=== PATIENT | female | born 1945 | race Caucasian/White ===

== ENCOUNTER → 2016-07-23 | Outpatient (CLI) | payer OTHER | END | disposition home or self-care (01) | LOC: C.LABMFLN 11:43 | PROVIDERS: ATTEND Family Medicine | DX: Z11.59 Encounter for screening for other viral diseases (principal); R32 Unspecified urinary incontinence; A49.1 Streptococcal infection, unspecified site ==

== ENCOUNTER → 2016-07-28 | Outpatient (CLI) | payer OTHER | END | disposition home or self-care (01) | LOC: C.LABMFLN 07:51 | PROVIDERS: ATTEND Family Medicine | DX: A49.1 Streptococcal infection, unspecified site (principal); R32 Unspecified urinary incontinence; Z11.59 Encounter for screening for other viral diseases ==

== ENCOUNTER → 2016-07-29 | Outpatient (CLI) | payer OTHER ==
[2016-07-29 13:09] LABS: BASO % 0.7 %; BASO ABS # 0.05 K/uL (0-0.2); COMPLETE YES; EOS % 3.8 %; HEMATOCRIT 40.8 % (37-47); IG% 0.3 %; LYMPH % 27.2 %; LYMPH ABS # 1.92 K/uL (1.2-3.4); MEAN CELL VOLUME 92.3 fL (80-100); MEAN CORPUSCULAR HEMOGLOBIN 30.3 pg (25-34); MEAN CORPUSCULAR HGB CONC 32.8 g/dl (32-36); MEAN PLATELET VOLUME 10.5 fL (7.4-10.4); MONO % 9.8 %; NEUT % 58.2 %; PLATELET COUNT 296 K/uL (130-400); RED BLOOD COUNT 4.42 M/uL (4.2-5.4); WHITE BLOOD COUNT 7.05 K/uL (4.8-10.8)
[2016-07-29 13:34] LABS: ALT/SGPT 18 U/L (12-78); AST/SGOT 14 U/L (15-37); BLOOD UREA NITROGEN 23 mg/dl (7-18); BUN/CREATININE RATIO 20.5 (10-20); CALCIUM 8.6 mg/dl (8.5-10.1); CARBON DIOXIDE 27 mmol/L (21-32); CHLORIDE 106 mmol/L (98-107); GLUCOSE 131 mg/dl (70-99); POTASSIUM 4.4 mmol/L (3.5-5.1); SODIUM 141 mmol/L (136-145)
[2016-07-29 13:45] LABS: ALB/GLOB RATIO 0.9 (0.9-2); ALKALINE PHOSPHATASE 96 U/L (45-117); CHOLESTEROL 246 mg/dl (0-200); CHOLESTEROL/HDL RATIO 5.6; HDL CHOLESTEROL 44 mg/dl; LDL CHOLESTEROL CALCULATED 159 mg/dl; TRIGLYCERIDES 214 mg/dl (0-150); VERY LOW DENSITY LIPOPROT CALC 43 mg/dl
== END | disposition home or self-care (01) ==
LOC: C.LABMFLN 07:51
PROVIDERS: ATTEND Family Medicine
DX: Z00.00 Encounter for general adult medical examination without abnormal findings (principal); I10 Essential (primary) hypertension; I48.91 Unspecified atrial fibrillation; Z13.220 Encounter for screening for lipoid disorders; Z13.29 Encounter for screening for other suspected endocrine disorder

== ENCOUNTER → 2016-07-31 | Outpatient (CLI) | payer OTHER ==
[2016-07-31 13:51] LABS: ESTIMATED AVERAGE GLUCOSE 134 mg/dl; HA1C FLAG Normal (Normal)
== END | disposition home or self-care (01) ==
LOC: C.LABMFLN 07:26
PROVIDERS: ATTEND Family Medicine
DX: R73.01 Impaired fasting glucose (principal)

== ENCOUNTER → 2016-09-14 | Outpatient (CLI) | payer OTHER ==
[2016-09-14 13:26] LABS: INR 2.5 (0.9-1.1); PROTHROMBIN TIME (PATIENT) 27.3 SECONDS (9.0-12.0)
== END | disposition home or self-care (01) ==
LOC: C.LABMFLN 07:51
PROVIDERS: ATTEND Internal Medicine Cardiovascular Disease
DX: I48.91 Unspecified atrial fibrillation (principal)

== ENCOUNTER → 2017-01-28 | Outpatient (CLI) | payer OTHER ==
[2017-01-28 14:00] LABS: ALT/SGPT 17 U/L (12-78); BLOOD UREA NITROGEN 22 mg/dl (7-18); BUN/CREATININE RATIO 19.8 (10-20); CALCIUM 9.1 mg/dl (8.5-10.1); CARBON DIOXIDE 25 mmol/L (21-32); CHLORIDE 109 mmol/L (98-107); GLUCOSE 115 mg/dl (70-99); POTASSIUM 4.1 mmol/L (3.5-5.1); SODIUM 140 mmol/L (136-145)
[2017-01-28 14:01] LABS: ESTIMATED AVERAGE GLUCOSE 134 mg/dl; HA1C FLAG Normal (Normal)
[2017-01-28 14:01] LABS: RATIO 8.1 mcg/mg (0-30.0)
[2017-01-28 14:03] LABS: ALB/GLOB RATIO 0.8 (0.9-2); ALKALINE PHOSPHATASE 94 U/L (45-117); AST/SGOT 15 U/L (15-37)
== END | disposition home or self-care (01) ==
LOC: C.LABMFLN 07:57
PROVIDERS: ATTEND Physician Assistant
DX: I10 Essential (primary) hypertension (principal); E78.5 Hyperlipidemia, unspecified; E11.9 Type 2 diabetes mellitus without complications

== ENCOUNTER → 2017-02-02 | Outpatient (CLI) | payer OTHER, MEDICARE ==
[2017-02-02 17:54] LABS: BASO % 0.3 %; BASO ABS # 0.03 K/uL (0-0.2); COMPLETE YES; EOS % 2.1 %; HEMATOCRIT 39.5 % (37-47); IG% 0.2 %; LYMPH % 27.8 %; LYMPH ABS # 2.46 K/uL (1.2-3.4); MEAN CELL VOLUME 92.3 fL (80-100); MEAN CORPUSCULAR HEMOGLOBIN 28.3 pg (25-34); MEAN CORPUSCULAR HGB CONC 30.6 g/dl (32-36); MEAN PLATELET VOLUME 10.5 fL (7.4-10.4); MONO % 9.7 %; NEUT % 59.9 %; PLATELET COUNT 337 K/uL (130-400); RED BLOOD COUNT 4.28 M/uL (4.2-5.4); WHITE BLOOD COUNT 8.85 K/uL (4.8-10.8)
== END | disposition home or self-care (01) ==
LOC: C.LABMFLN 13:34
PROVIDERS: ATTEND Family Medicine
DX: R06.00 Dyspnea, unspecified (principal)

== ENCOUNTER → 2017-02-10 | Outpatient (CLI) | payer OTHER, MEDICARE ==
[2017-02-10 13:12] LABS: BLOOD UREA NITROGEN 28 mg/dl (7-18); BUN/CREATININE RATIO 22.9 (10-20); CALCIUM 9.5 mg/dl (8.5-10.1); CARBON DIOXIDE 27 mmol/L (21-32); CHLORIDE 108 mmol/L (98-107); GLUCOSE 101 mg/dl (70-99); POTASSIUM 4.2 mmol/L (3.5-5.1); SODIUM 142 mmol/L (136-145)
== END | disposition home or self-care (01) ==
LOC: C.LABMFLN 09:56
PROVIDERS: ATTEND Family Medicine
DX: I50.30 Unspecified diastolic (congestive) heart failure (principal)

== ENCOUNTER → 2017-06-04 | Outpatient (CLI) | payer OTHER, MEDICARE ==
[~2017-06-04] MED LIST: AMIO200T4 PO; FRS/40 PO; GLC/500 PO; MOMLX PO; NAPR1TAB9 PO; POTA20TA16 PO; SENN15TA PO; TPRSR/50 PO; VNTHFA/IN INH; WARF1TAB6 PO
[2017-06-04 18:46] LABS: BLOOD UREA NITROGEN 26 mg/dl (7-18)
[2017-06-04 18:47] LABS: TRANSFERRIN 365 mg/dl (200-360)
== END | disposition home or self-care (01) ==
LOC: C.LABMFLN 15:19
PROVIDERS: ATTEND Physician Assistant
DX: Z01.812 Encounter for preprocedural laboratory examination (principal); Z79.01 Long term (current) use of anticoagulants; D64.9 Anemia, unspecified; R19.5 Other fecal abnormalities

== ENCOUNTER → 2017-06-05 | Outpatient (CLI) | payer OTHER, MEDICARE ==
[2017-06-10 13:21] LABS: FECAL OCCULT BLOOD #1 NEGATIVE (NEGATIVE); FECAL OCCULT BLOOD #2 NEGATIVE (NEGATIVE); FECAL OCCULT BLOOD #3 NEGATIVE (NEGATIVE)
== END | disposition home or self-care (01) ==
LOC: C.LABSPEC 12:49
PROVIDERS: ATTEND Physician Assistant
DX: Z51.81 Encounter for therapeutic drug level monitoring (principal); Z79.01 Long term (current) use of anticoagulants; D64.9 Anemia, unspecified; R19.5 Other fecal abnormalities

== ENCOUNTER → 2017-07-30 | Outpatient (CLI) | payer OTHER, MEDICARE ==
[2017-07-31 07:08] LABS: HEMOGLOBIN A1C 6.4 % (4.5-5.6)
== END | disposition home or self-care (01) ==
LOC: C.LABMFLN 14:08
PROVIDERS: ATTEND Physician Assistant
DX: E11.9 Type 2 diabetes mellitus without complications (principal); E78.5 Hyperlipidemia, unspecified

== ENCOUNTER → 2017-09-16 | Outpatient (CLI) | payer OTHER, MEDICARE ==
[~2017-09-16] MED LIST changes: +POTA-639 PO; -POTA20TA16 PO
[2017-09-16 12:32] LABS: BASO % 0.1 %; BASO ABS # 0.01 K/uL (0-0.2); EOS % 0.5 %; EOS ABS # 0.06 K/uL (0-0.5); HEMATOCRIT 30.2 % (37-47); HEMOGLOBIN 9.1 g/dL (12.0-16.0); IG# 0.07 K/uL (0.00-0.02); LYMPH % 16.2 %; LYMPH ABS # 2.09 K/uL (1.2-3.4); MEAN CELL VOLUME 81.8 fL (80-100); MEAN CORPUSCULAR HEMOGLOBIN 24.7 pg (25-34); MEAN CORPUSCULAR HGB CONC 30.1 g/dl (32-36); MEAN PLATELET VOLUME 9.4 fL (7.4-10.4); MONO % 8.9 %; MONO ABS # 1.14 K/uL (0.11-0.59); NEUT % 73.8 %; PLATELET COUNT 504 K/uL (130-400); RED CELL DISTRIBUTION WIDTH CV 17.7 % (11.5-14.5); RED CELL DISTRIBUTION WIDTH SD 52.3 fL (36.4-46.3); WHITE BLOOD COUNT 12.87 K/uL (4.8-10.8)
== END | disposition home or self-care (01) ==
LOC: C.LABMFLN 10:20
PROVIDERS: ATTEND Physician Assistant
DX: D64.9 Anemia, unspecified (principal)

== ENCOUNTER → 2017-10-15 | Outpatient (CLI) | payer OTHER, MEDICARE ==
--- NOTE | 2017-10-15 09:48 | DIAGNOSTIC IMAGING REPORT ---
GASTROGRAFIN ENEMA AIR ROUTINE CLINICAL HISTORY: Status post partial colectomy. Evaluate for ostomy reversal. COMPARISON STUDY: Outside hospital abdomen and pelvis CT 08/19/2017. FLUOROSCOPY TIME: 1.4 minutes. 13 fluoroscopic spot and overhead images were obtained.. FINDINGS: Electrical Tests Supervisor images demonstrate suture material within the pelvis consistent with a prior partial colectomy. A balloon tip catheter was gently inserted into the rectum under fluoroscopic guidance. The balloon was inflated. This is followed by placement of Gastrografin contrast through the catheter and into the rectum. Multiple colonic diverticula are noted. Contrast reached the cecum. No suspicious filling defects within the colon. Moderate narrowing involving approximately 7 cm segment of the mid sigmoid colon. No extra luminal contrast to suggest a leak. IMPRESSION: 1. Moderate narrowing involving a 7 cm segment of the mid sigmoid colon. This is at the level of the anastomosis. However, contrast easily extends past the area of narrowing and into the proximal colon. 2. Colonic diverticulosis. 3. No extraluminal contrast to suggest an anastomotic leak. Electronically signed by: Juan Luis Noel M.D. 10/15/2017 10:32 AM Dictated Date/Time: 10/15/2017 9:40 AM
== END | disposition home or self-care (01) ==
LOC: C.RAD 08:07
PROVIDERS: ATTEND Colon & Rectal Surgery
DX: K57.90 Diverticulosis of intestine, part unspecified, without perforation or abscess without bleeding (principal); Z90.49 Acquired absence of other specified parts of digestive tract

== ENCOUNTER 2019-10-08 19:51 | Inpatient (IN) ==
--- NOTE | 2019-10-08 20:13 | Emergency Department Note ---
History of Present Illness General Chief complaint: Neuro Symptoms/Deficit Stated complaint: left leg wont work, possible stoke, his of cva dec Time Seen by Provider: 10/08/19 19:57 Source: patient Mode of arrival: ambulatory Limitations: no limitations History of Present Illness This patient arrives from private vehicle after having strokelike symptoms. She does have a history of stroke in the past for which she recovered and a history of A. fib and is taking Eliquis twice daily. She said this morning her she had an A. fib episode around 9:00 that lasted about 3 hours. She took 3 nitroglycerin and ultimately felt better. She describes as her heart racing. She is no chest pain or shortness of breath. There is no recent fever or COVID- like symptoms cough or shortness of breath. Then around 11:00 it felt like her left leg was weak where she feels like it is giving out when she walks. There are no other left-sided symptoms or no other neurologic symptoms. No difficulty speaking or swallowing. No back pain. She did take her Eliquis this morning. She feels that her symptoms have not gotten any better and are slightly worse and when she walks her leg gives out. Besides that she has no other symptoms at present Home Medications Home Medications Medication Instructions Recorded Confirmed Type albuterol sulfate 90 mcg/actuation 2 puffs INH Q4H PRN #18 gm 11/21/18 10/08/19 Rx aerosol inhaler furosemide 20 mg tablet 20 mg PO DAILY PRN #30 tab 11/22/18 10/08/19 Rx amiodarone 200 mg tablet 200 mg PO DAILY #90 tab 01/23/19 10/08/19 Rx cyanocobalamin (vitamin B-12) 1,000 mcg SL DAILY #90 tab 01/23/19 10/08/19 Rx 1,000 mcg sublingual tablet ferrous sulfate 325 mg (65 mg 325 mg PO TID #270 tab 01/23/19 10/08/19 Rx iron) tablet potassium chloride 10 mEq 10 meq PO DAILY #90 tab 01/23/19 10/08/19 Rx tablet,extended release nitroglycerin 0.4 mg sublingual 0.4 mg SL Q5M PRN #25 tab 02/07/19 10/08/19 Rx tablet meclizine 12.5 mg tablet 12.5 mg PO TID PRN #15 tab 12/10/19 05/10/20 Rx docusate sodium 100 mg capsule 100 mg PO BID PRN cap 05/15/19 10/08/19 History apixaban 5 mg tablet 5 mg PO BID #60 tab 05/30/19 10/08/19 Rx losartan 25 mg tablet 25 mg PO DAILY #90 tab 07/07/19 10/08/19 Rx Allergies Allergy/AdvReac Type Severity Reaction Status Date / Time oxycodone Allergy Unknown Verified 10/08/19 21:07 rosuvastatin [From Crestor] Allergy Unknown Verified 10/08/19 21:07 Cipro AdvReac Unknown pill - N/V Verified 06/01/17 11:51 ciprofloxacin AdvReac Unknown pill - N/V Verified 10/08/19 21:07 metronidazole AdvReac Unknown PILL - N/V Verified 10/08/19 21:07 morphine AdvReac Unknown BIG MENTAL Verified 10/08/19 21:07 STATUS CHANGES Past Med/Surg History Medical History Anemia Asthma, acute Atrial fibrillation Back pain Carotid artery stenosis Carotid stenosis, bilateral Chronic constipation Diabetes Hyperlipidemia Hypertension Paroxysmal atrial fibrillation with RVR PND (paroxysmal nocturnal dyspnea) Situational anxiety VRE (vancomycin-resistant Enterococci) Surgical History H/O colectomy History of meniscectomy of right knee Family History Other Cancer Diabetes Heart disease Stroke Social History Preferred Language: Scottish Communication Ability: Effective Technical Director Required: No Beliefs That Will Affect Care: None Current Living Situation: Spouse Other Information That Helps Us Care for You: No Feels Safe at Home: Yes Safety Concerns: Feels Safe At This Time Smoking Status: Former smoker Smoking End Date: 2 years ago ; Hx Alcohol Use: No Hx Substance Use: No Review of Systems A total of 10 systems reviewed and were otherwise negative Physical Exam Vital Signs Vital Signs - 24 hr 10/08/19 19:53 10/08/19 20:03 10/08/19 20:31 Temperature 36.3 C L Temperature Source Oral Pulse Rate 62 56 L 58 L Pulse Rate from SpO2 Sensor 56 L 59 L Pulse Strength Normal Respiratory Rate 16 18 15 Respiratory Effort / Characteristics Non-Labored Respiratory Depth Normal Respiratory Pattern Regular Blood Pressure 200/82 H 196/99 H 218/150 H Blood Pressure Mean 121 126 173 Blood Pressure Position Sitting Pulse Oximetry 97 99 96 Oxygen Delivery Method Room Air Sepsis Recent Fever Within 48 Hours No Sepsis New/Unexplained Change in Mental Status No Sepsis Action Taken by Nursing No Action Required 10/08/19 21:01 10/08/19 21:31 10/08/19 22:01 Temperature Temperature Source Pulse Rate 59 L 58 L 53 L Pulse Rate from SpO2 Sensor 59 L 58 L 54 L Pulse Strength Respiratory Rate 16 17 14 Respiratory Effort / Characteristics Respiratory Depth Respiratory Pattern Blood Pressure 178/81 H 201/80 H 227/93 H Blood Pressure Mean 125 99 150 Blood Pressure Position Pulse Oximetry 98 98 98 Oxygen Delivery Method Sepsis Recent Fever Within 48 Hours Sepsis New/Unexplained Change in Mental Status Sepsis Action Taken by Nursing General: Well developed well nourished not ill-appearing older female who appears in no acute distress, breathing comfortably on room air. Normal speech. Alert or x3 answering all questions appropriately without slurred speech HEENT: Normal cephalic atraumatic. Pupils are equal round and reactive to light. Extraocular movements are intact. Oropharynx is pink with moist mucous membranes. No swelling of the mouth lips or tongue. Neck: Supple with a midline trachea. No meningeal signs or stiffness, no JVD or bruits. No Stridor. Chest: Clear to auscultation bilaterally. No wheezes or rhonchi. No increased work of breathing. Heart: Regular rate and rhythm without murmurs or gallops. Abdomen: Soft nontender, nondistended without rebound guarding or rigidity. Extremities: No cyanosis clubbing or edema. No calf tenderness or assymetry Spine/Back. Non tender to palpation. No CVA tenderness Skin: Good turgor without rashes. Neurologic exam: Cranial nerves two through 12 are intact. Motor and sensation are intact and symmetrical throughout with the exception of some mild weakness in the left leg compared to the right. She is able to hold it up for 10 seconds but it seems more shaky and weak than the opposite side. Course Administered Medications Ioversol (Optiray 320 125ml) 119 ml IV ONCE PRN PRN Reason: Interaction Checking Stop: 10/12/19 20:16 Last Admin: 10/08/19 20:17 Dose: 119 ml Documented by: [id number] Medical Decision Making Differential Diagnosis Differential diagnosis includes but is not limited to stroke, TIA, A. fib, electrolyte or metabolic abnormality Medical Records Attestation: I reviewed the patient's medical records. Home Medications Current Medication List: was personally reviewed by me Laboratory Data Attestation: I reviewed the patient's lab results. Result diagrams: 10/08/19 20:10 10/08/19 20:10 Lab Results 10/08/19 10/08/19 10/08/19 Range/Units 20:10 20:10 20:10 WBC 6.87 (4.8-10.8) K/uL RBC 4.12 L (4.2-5.4) M/uL Hgb 12.5 (12.0-16.0) g/dL Hct 38.8 (37-47) % MCV 94.2 (80-100) fL MCH 30.3 (25-34) pg MCHC 32.2 (32-36) g/dL RDW Std Deviation 49.7 H (36.4-46.3) fL RDW Coeff of Connie 14.5 (11.5-14.5) % Plt Count 312 (130-400) K/uL MPV 9.8 (7.4-10.4) fL Immature Gran % (Auto) 0.3 % Neut % (Auto) 61.6 % Lymph % (Auto) 24.3 % Storey % (Auto) 11.5 % Eos % (Auto) 1.9 % Baso % (Auto) 0.4 % Immature Gran # (Auto) 0.02 (0.00-0.02) K/uL Neut # (Auto) 4.23 (1.4-6.5) K/uL Lymph # (Auto) 1.67 (1.2-3.4) K/uL Storey # (Auto) 0.79 H (0.11-0.59) K/uL Eos # (Auto) 0.13 (0-0.5) K/uL Baso # (Auto) 0.03 (0-0.2) K/uL PT 10.8 (9.0-12.0) Seconds INR 1.0 (0.9-1.1) APTT 29.8 (21.0-31.0) Seconds PTT Ratio 1.1 Sodium 139 (136-145) mmol/L Potassium 3.9 (3.5-5.1) mmol/L Chloride 106 (98-107) mmol/L Carbon Dioxide 25 (21-32) mmol/L Anion Gap 8.0 (3-11) BUN 23 H (7-18) mg/dl Creatinine 1.31 H (0.6-1.2) mg/dl Est Cr Clr Drug Dosing Not Reportable Est GFR ( Amer) 47.0 Est GFR (Non-Af Amer) 40.6 BUN/Creatinine Ratio 17.3 (10-20) Glucose 139 H (70-99) mg/dl Calcium 8.8 (8.5-10.1) mg/dl Magnesium 2.2 (1.8-2.4) mg/dl Total Bilirubin 0.2 (0.2-1) mg/dl AST 12 L (15-37) U/L ALT 21 (12-78) U/L Alkaline Phosphatase 88 (45-117) U/L Troponin I < 0.015 (0-0.045) ng/ml Total Protein 7.5 (6.4-8.2) gm/dl Albumin 3.4 (3.4-5.0) gm/dl Globulin 4.1 H (2.5-4.0) gm/dl Albumin/Globulin Ratio 0.8 L (0.9-2) Imaging Data Attestation: I personally reviewed and interpreted this imaging study as follows: ECG Data Attestation: I personally reviewed and interpreted this ECG as follows: Blood Pressure Blood Pressure Findings: Elevated blood pressure Blood Pressure Disposition: elevated BP felt to be situational MDM Narrative This patient comes in as described above. She has left leg weakness and strokelike symptoms. They started 9 hours prior to arrival. She has a history of A. fib and felt she had A. fib episode prior to that and took nitroglycerin. Besides the leg she has no other neurologic symptoms. she has no chest pain or shortness of breath. She was placed on a cardiac nurse specialist. IV access was e stablished. And I did call a stroke alert and extensive work-up was done including CT of the head and neck. I did talk to Dr. Garsia from stroke neurology and she agrees that given the timeframe (9 hrs+) and that the fact that she is also on Eliquis, she is not a TPA candidate. Additionally, she is not a interventional candidate at this point given her mild symptoms and timeframe. It is possible with the nitroglycerin she could have dropped her pressure and had a watershed stroke it is also possible that she could have thrown a another embolic stroke. Continuous cardiac monitoring. Due to the patient's history of A. fib and rapid heart rate and strokelike symptoms, an order was placed for continuous cardiac nurse specialist. She is placed on the continuous cardiac nurse specialist and was noted to be in normal sinus rhythm with a rate of 60 as interpreted by myself. She was kept on a cardiac nurse specialist during her stay in the emergency department. Impression & Plan Atrial fibrillation, FPC (current) use of anticoagulants, Stroke-like symptom, Left leg weakness Discharge Plan Visit Data Chief Complaint: Neuro Symptoms/Deficit Stated Complaint: left leg wont work, possible stoke, his of cva apr ED Provider: Samir Keller Discharge Problem: Atrial fibrillation, FPC (current) use of anticoagulants, Stroke-like symptom, Left leg weakness Forms Stand Alone Forms: [facility] [employer] Prescriptions Prescriptions: No Action furosemide 20 mg tablet 20 mg PO DAILY PRN (Reason: edema) Qty: 30 RF: 2 losartan 25 mg tablet 25 mg PO DAILY Qty: 90 RF: 3 amiodarone 200 mg tablet 200 mg PO DAILY Qty: 90 RF: 3 cyanocobalamin (vitamin B-12) 1,000 mcg tablet, sublingual 1,000 mcg SL DAILY Qty: 90 RF: 3 ferrous sulfate 325 mg (65 mg iron) tablet 325 mg PO TID Qty: 270 RF: 3 potassium chloride 10 mEq tablet extended release 10 meq PO DAILY Qty: 90 RF: 3 nitroglycerin 0.4 mg tablet, sublingual 0.4 mg SL Q5M PRN (Reason: chest pain) Qty: 25 RF: 0 docusate sodium [Colace] 100 mg capsule 100 mg PO BID PRN (Reason: Constipation) RF: 0 albuterol sulfate [ProAir HFA] 90 mcg/actuation HFA aerosol inhaler 2 puffs INH Q4H PRN (Reason: shortness of breath or wheezing) Qty: 18 RF: 0 meclizine 12.5 mg tablet 12.5 mg PO TID PRN (Reason: dizziness) Qty: 15 RF: 0 Eliquis 5 mg tablet 5 mg PO BID Qty: 60 RF: 5 Discharge Problem: Atrial fibrillation Qualifiers: Atrial fibrillation type: paroxysmal Qualified Code(s): I48.0 - Paroxysmal atrial fibrillation
[2019-10-08] MEDS ORDERED: OPTIRAY 320 125ml IV PRN (20:17)
[2019-10-08 20:21] LABS: Basophils # (auto) 0.03 K/uL (0-0.2); Basophils % (auto) 0.4 %; Eosinophils # (auto) 0.13 K/uL (0-0.5); Eosinophils % (auto) 1.9 %; Hematocrit (blood only) 38.8 % (37-47); Hemoglobin 12.5 g/dL (12.0-16.0); Immature Granulocytes # (auto) 0.02 K/uL (0.00-0.02); Immature Granulocytes % (auto) 0.3 %; Lymphocytes # (auto) 1.67 K/uL (1.2-3.4); Lymphocytes % (auto) 24.3 %; Mean Corpuscular Hemoglobin 30.3 pg (25-34); Mean Corpuscular Hgb Conc 32.2 g/dL (32-36); Mean Corpuscular Volume 94.2 fL (80-100); Mean Platelet Volume 9.8 fL (7.4-10.4); Monocytes # (auto) 0.79 K/uL (0.11-0.59); Monocytes % (auto) 11.5 %; Neutrophils # (auto) 4.23 K/uL (1.4-6.5); Neutrophils % (auto) 61.6 %; Platelet Count 312 K/uL (130-400); RDW Coefficient of Variation 14.5 % (11.5-14.5); RDW Standard Deviation 49.7 fL (36.4-46.3); Red Blood Count 4.12 M/uL (4.2-5.4); White Blood Count 6.87 K/uL (4.8-10.8)
[2019-10-08 20:31] LABS: Partial Thromboplastin Ratio 1.1; Partial Thromboplastin Time 29.8 Seconds (21.0-31.0); Prothrombin Time 10.8 Seconds (9.0-12.0)
--- NOTE | 2019-10-08 20:32 | CT Scan Report ---
CT OF THE HEAD WITHOUT CONTRAST CLINICAL HISTORY: Stroke evaluation. Right leg weakness. COMPARISON STUDY: No previous studies for comparison. TECHNIQUE: Helical axial images of the head were obtained without IV contrast. Automated exposure con trol was utilized for the study. A dose lowering technique was utilized adhering to the principles o f ALARA. FINDINGS: No acute intracranial hemorrhage, midline shift or mass effect is present. The ventricular system is normal. The basilar cisterns are patent. There are no extra-axial collections. White matter hypodensity suggests small vessel disease. An equivocal hypodensity within the left frontal lobe on axial image 21 of 28 is noted. There are no findings to suggest acute dural sinus thrombosis or acute territorial infarct. There are no significant calvarial abnormalities. IMPRESSION: 1. No acute intracranial hemorrhage or mass effect. 2. Equivocal small hypodense focus within the left frontal lobe. This could reflect artifact or a sma ll acute infarct. 3. White matter hypodensities which suggest small vessel disease. ACT 112: Negative or not required by law. Electronically signed by: Isidro Bone M.D. 10/08/2019 8:31 PM
[2019-10-08 20:38] LABS: Alanine Aminotransferase 21 U/L (12-78); Albumin Level 3.4 gm/dl (3.4-5.0); Aspartate Aminotransferase 12 U/L (15-37); BUN Creatinine Ratio 17.3 (10-20); Blood Urea Nitrogen 23 mg/dl (7-18); Calcium 8.8 mg/dl (8.5-10.1); Carbon Dioxide 25 mmol/L (21-32); Chloride 106 mmol/L (98-107); Est GFR (Non-African American) 40.6; Glucose 139 mg/dl (70-99); Magnesium 2.2 mg/dl (1.8-2.4); Potassium 3.9 mmol/L (3.5-5.1); Sodium 139 mmol/L (136-145)
--- NOTE | 2019-10-08 20:41 | CT Scan Report ---
CT ANGIOGRAPHY OF THE NECK WITH CONTRAST CLINICAL HISTORY: Stroke evaluation COMPARISON STUDY: No previous studies for comparison. Technique: CT angiography of the carotid and vertebral arteries was obtained using [employer] 320 IV and 3D reconstruction on an independent workstation. NASCET criteria was utilized. Automated exposure c ontrol was utilized for the study. A dose lowering technique was utilized adhering to the principles of ALARA. Findings: Mild emphysema is noted within visualized portions of the lung apices. There are a few tiny nodules within the lung apices, including a 3 mm right upper lobe nodule on image 40 of 356. This ma y have minimal adjacent groundglass opacity. No cervical lymphadenopathy is present. There is no cerv ical spine fracture. There is mild stenosis at the origin of the left subclavian artery due to calcif ied plaque. The bilateral vertebral arteries are patent. There is no dissection within the major vess els of the neck. There is moderate plaque within the proximal bilateral internal carotid arteries. Th e proximal right internal carotid artery measures 2.1 mm in caliber. The distal right internal caroti d artery measures 4.1 mm. The proximal left internal carotid artery measures 2 mm in caliber of the d istal left cervical portion of the internal carotid artery measures 3.9 mm. No additional stenoses ar e identified. There is tortuosity of the proximal left internal carotid artery. The bilateral common carotid arteries are patent. IMPRESSION: 1. Moderate plaque within the proximal bilateral internal carotid arteries with 50% stenoses at the o rigins of the bilateral internal carotid arteries. 2. No dissection. Patent bilateral vertebral arteries. 3. A few tiny nodules within the lung apices. These are probably benign however a follow-up chest CT in 6 months to ensure stability is recommended. ACT 112: Negative or not required by law. Electronically signed by: Isidro Bone M.D. 10/08/2019 8:40 PM
[2019-10-08 20:43] LABS: Albumin Globulin Ratio 0.8 (0.9-2); Alkaline Phosphatase 88 U/L (45-117); Bilirubin,Total 0.2 mg/dl (0.2-1); Globulin 4.1 gm/dl (2.5-4.0); Total Protein 7.5 gm/dl (6.4-8.2); Troponin I < 0.015 ng/ml (0-0.045)
--- NOTE | 2019-10-08 20:46 | CT Scan Report ---
CTA ANGIOGRAPHY OF THE HEAD CLINICAL HISTORY: Stroke evaluation. Right leg weakness. COMPARISON STUDY: No previous studies for comparison. TECHNIQUE: Helical axial images of the head were obtained following uneventful intravenous administr ation of 119 cc of Optiray 320. Sagittal and coronal reconstructions were viewed as well as maximal i ntensity projections on an independent 3-D workstation. Automated exposure control was utilized for the study. A dose lowering technique was utilized adhering to the principles of ALARA. CT DOSE: 1063.92 mGy.cm FINDINGS: No acute intracranial hemorrhage, midline shift or mass effect is present. Ventricular syst em is normal. The basilar cisterns are patent. There are no extra-axial collections. The bilateral M1 , M2, A1 and A2 segments are patent. Note is made of mild stenosis of the proximal left and 1 segment . Note is made of moderate stenosis of the right A2 segment. No intraluminal thrombus or abrupt vesse l cut off is identified. There is no dissection within the major intracranial vessels. persiste nce of the right posterior cerebral artery is noted. There is moderate narrowing of the right P2 segm ent. IMPRESSION: 1. No intraluminal thrombus or abrupt vessel cutoff. 2. 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 ACT 112: Negative or not required by law. Electronically signed by: Isidro Bone M.D. 10/08/2019 8:45 PM
--- NOTE | 2019-10-08 20:47 | XRay Report ---
XR chest 1V portable CLINICAL HISTORY: stroke-like symptoms COMPARISON STUDY: No previous studies for comparison. FINDINGS: Lung volumes are mildly diminished. There is no pneumothorax or pleural effusion. Mild righ t basilar opacity favors atelectasis. No consolidation is noted. Note is made of moderate cardiomegal y without evidence for pulmonary edema. IMPRESSION: 1. Low lung volumes. No acute findings. 2. Mild right basilar opacity which favors atelectasis. 3. Cardiomegaly without evidence for pulmonary edema. ACT 112: Negative or not required by law. Electronically signed by: Isidro Bone M.D. 10/08/2019 8:46 PM
--- NOTE | 2019-10-08 22:21 | History & Physical Report ---
Date of Service October 08, 2019 Assessment & Plan (1) CVA (cerebral vascular accident): 74 yo F with PMH paroxysmal Afib on Eliquis, HTN, HLD, CVA Apr 2019 presents with concerns of L LE weakness. CVA -Head CT: No acute intracranial hemorrhage or mass effect. Equivocal small hypodense focus within the left frontal lobe. This could reflect artifact or a small acute infarct. White matter hypodensities which suggest small vessel disease. -Head CTA: No intraluminal thrombus or abrupt vessel cutoff. Moderate multifocal stenoses within the intracranial circulation. -Neck CTA: Moderate plaque within the proximal bilateral internal carotid arteries with 50% stenoses at the origins of the bilateral internal carotid arteries. No dissection. Patent bilateral vertebral arteries. -multiple possible etiologies including repeat thrown embolic stroke vs. watershed stroke s/p nitro intake dropping pressure -MRI Brain w/wo contrast pending -ECHO pending -NIHSS qshift -Medication management with Rosuvastatin 40mg (h/o myalgias noted) and ASA 81mg -holding Eliquis -Lipid/A1C in AM -Fall/Aspiration precautions -PT/OT evals pending. Deferring [facility] eval as pt passed bedside swallow -Appreciate Neurology consult Paroxysmal Afib -admit to telemetry -cont amiodarone 200mg -holding Eliquis 5mg BID as above HTN -holding losartan 25 mg daily to allow for permissive HTN -prn IV Labetalol for BP >220/120 Lung Nodules -a few tiny nodules within the lung apices noted on Neck CTA -recommend f/u chest CT in 6 months to ensure stability FEN/GI: HH Diet DVT Prophylaxis: SCD's/DREW's. Holding Eliquis DNR/DNI Dispo: Med Tele History of Present Illness Chief Complaint: L LE weakness Primary Care Provider: Anu Parker PA-C 74 yo F with PMH paroxysmal Afib on Eliquis, HTN, HLD presents with concerns of L LE weakness. Pt with h/o CVA admitted to [facility] ED in Apr 2019 for right hand weakness, since recovered. Pt was found to have left basal ganglia infarct with intracranial and extracranial atherosclerotic disease and was discharged on prav astatin; however, this was discontinued as pt noted myalgias with this and also did not tolerate other statins due to myalgias. Looking at outpt notes, it appears it was not felt that she needed to be on antiplatelet therapy and to continue Eliquis as prescribed. Today around 9AM pt was doing dishes after breakfast and noted some palpitations, felt HR to be in the 120s. Pt notes that she goes into Afib maybe once per month. Pt took 3 nitroglycerin and ultimately felt a little better like it usually does. She went to sleep for a few hrs and when she woke up noted a weird sensation in L knee 'like it felt backwards.' This gradually worsened throughout the day. Later in evening, Bell DALY felt weak and felt like it was going to give out whenever ambulating. No alleviating factors. Some associated dizziness (orthostatic in nature) and KEITA s/p nitro along with weakness, but pt otherwise denies any neurological sxs of numbness/tingling, falls, impaired speech/swallow, vision changes, KEITA, CP, diaphoresis, SOB, syncope or near syncope, edema, F/N/V/D, cough, urinary sxs, or recent known exposures to covid individuals or recent travel anywhere. Pt with no other acute concerns or complaints. Pertinent Labs: Cr 1.31, Glu 139 otherwise largely unremarkable Head CT: No acute intracranial hemorrhage or mass effect. Equivocal small hypodense focus within the left frontal lobe. This could reflect artifact or a small acute infarct. White matter hypodensities which suggest small vessel disease. Head CTA: No intraluminal thrombus or abrupt vessel cutoff. Moderate multifocal stenoses within the intracranial circulation. Neck CTA: Moderate plaque within the proximal bilateral internal carotid arteries with 50% stenoses at the origins of the bilateral internal carotid arteries. No dissection. Patent bilateral vertebral arteries. ER Course: Spoke to Dr. Garsia from stroke neurology and agreed that given the timeframe/pt on Eliquis she is not a TPA candidate Social Hx: former smoker (~50 yrs) quit 2 yrs ago. Denies any alcohol or illicit drug use. Surgical Hx: meniscectomy of right knee, colectomy Allergies Allergy/AdvReac Type Severity Reaction Status Date / Time oxycodone Allergy Unknown Verified 10/08/19 21:07 rosuvastatin [From Crestor] Allergy Unknown Verified 10/08/19 21:07 Cipro AdvReac Unknown pill - N/V Verified 06/01/17 11:51 ciprofloxacin AdvReac Unknown pill - N/V Verified 10/08/19 21:07 metronidazole AdvReac Unknown PILL - N/V Verified 10/08/19 21:07 morphine AdvReac Unknown BIG MENTAL Verified 10/08/19 21:07 STATUS CHANGES Home Medications Home Medications Medication Instructions Recorded Confirmed Type albuterol sulfate 90 mcg/actuation 2 puffs INH Q4H PRN #18 gm 11/21/18 10/08/19 Rx aerosol inhaler furosemide 20 mg tablet 20 mg PO DAILY PRN #30 tab 11/22/18 10/08/19 Rx amiodarone 200 mg tablet 200 mg PO DAILY #90 tab 01/23/19 10/08/19 Rx cyanocobalamin (vitamin B-12) 1,000 mcg SL DAILY #90 tab 01/23/19 10/08/19 Rx 1,000 mcg sublingual tablet ferrous sulfate 325 mg (65 mg 325 mg PO TID #270 tab 01/23/19 10/08/19 Rx iron) tablet potassium chloride 10 mEq 10 meq PO DAILY #90 tab 01/23/19 10/08/19 Rx tablet,extended release nitroglycerin 0.4 mg sublingual 0.4 mg SL Q5M PRN #25 tab 02/07/19 10/08/19 Rx tablet meclizine 12.5 mg tablet 12.5 mg PO TID PRN #15 tab 05/09/19 10/08/19 Rx docusate sodium 100 mg capsule 100 mg PO BID PRN cap 05/15/19 10/08/19 History apixaban 5 mg tablet 5 mg PO BID #60 tab 05/30/19 10/08/19 Rx losartan 25 mg tablet 25 mg PO DAILY #90 tab 07/07/19 10/08/19 Rx Past Med/Surg History Medical History Anemia Asthma, acute Atrial fibrillation Back pain Carotid artery stenosis Carotid stenosis, bilateral Chronic constipation Diabetes Hyperlipidemia Hypertension Paroxysmal atrial fibrillation with RVR PND (paroxysmal nocturnal dyspnea) Situational anxiety VRE (vancomycin-resistant Enterococci) Surgical History H/O colectomy History of meniscectomy of right knee Family History Other Cancer Diabetes Heart disease Stroke Social History Preferred Language: Bahraini Communication Ability: Effective Therapeutic Support Staff Required: No Beliefs That Will Affect Care: None Current Living Situation: Spouse Other Information That Helps Us Care for You: No Feels Safe at Home: Yes Safety Concerns: Feels Safe At This Time Smoking Status: Former smoker Smoking End Date: 2 years ago ; Hx Alcohol Use: No Hx Substance Use: No Review of Systems Review of Systems: All systems reviewed & are unremarkable except as noted in HPI & below Physical Exam Constitutional: WD/WN, vitals as above no acute distress Eyes: PERRL, conjunctivae normal, anicteric sclerae ENMT: external ear and nose normal, oropharynx normal Respiratory: normal respiratory effort, lungs clear to auscultation Cardiovascular: RRR, no murmur, no edema Gastrointestinal (Abdomen): normal bowel sounds, soft, nontender, no hepatosplenomegaly Skin: no rashes, warm and dry Neurologic: CN's II-XI intact bilaterally; no focal motor deficits Speech / Cognition: normal speech Mild weakness (4/5 strength) in LLE against passive resistance. Otherwise normal motor and sensation intact throughout Psychiatric: A+Ox3, euthymic affect Results & Data Results & Data ([facility]) Vital Signs (Past 12 Hours) Vital Signs Temp Pulse Resp BP Pulse Ox 10/08/19 22:01 53 L 14 227/93 H 98 10/08/19 21:31 58 L 17 201/80 H 98 10/08/19 21:01 59 L 16 178/81 H 98 10/08/19 20:31 58 L 15 218/150 H 96 10/08/19 20:03 56 L 18 196/99 H 99 10/08/19 19:53 36.3 C L 62 16 200/82 H 97 Laboratory Results Laboratory Results - last 24 hr 10/08/19 10/08/19 10/08/19 20:10 20:10 20:10 WBC 6.87 RBC 4.12 L Hgb 12.5 Hct 38.8 MCV 94.2 MCH 30.3 MCHC 32.2 RDW Std Deviation 49.7 H RDW Coeff of Connie 14.5 Plt Count 312 MPV 9.8 Immature Gran % (Auto) 0.3 Neut % (Auto) 61.6 Lymph % (Auto) 24.3 [place] % (Auto) 11.5 Eos % (Auto) 1.9 Baso % (Auto) 0.4 Immature Gran # (Auto) 0.02 Neut # (Auto) 4.23 Lymph # (Auto) 1.67 [place] # (Auto) 0.79 H Eos # (Auto) 0.13 Baso # (Auto) 0.03 PT 10.8 INR 1.0 APTT 29.8 PTT Ratio 1.1 Sodium 139 Potassium 3.9 Chloride 106 Carbon Dioxide 25 Anion Gap 8.0 BUN 23 H Creatinine 1.31 H Est Cr Clr Drug Dosing Not Reportable Est GFR ( Amer) 47.0 Est GFR (Non-Af Amer) 40.6 BUN/Creatinine Ratio 17.3 Glucose 139 H Calcium 8.8 Magnesium 2.2 Total Bilirubin 0.2 AST 12 L ALT 21 Alkaline Phosphatase 88 Troponin I < 0.015 Total Protein 7.5 Albumin 3.4 Globulin 4.1 H Albumin/Globulin Ratio 0.8 L Medications Administered Current Inpatient Medications Ioversol (Optiray 320 125ml) 119 ml IV ONCE PRN PRN Reason: Interaction Checking Stop: 10/12/19 20:16 Last Admin: 10/08/19 20:17 Dose: 119 ml Documented by: Code Status & VTE Plan Code Status DNR/DNI Supervising Physician Co-Signing Physician Notes Patient seen and examined, chart reviewed, case discussed with Dr. Valenzuela and I agree with his assessment and plan as documented above. Briefly, 74yo C female with PAF on anticoagulation presenting with stroke-like symptoms. On exam she is afebrile, hypertensive, NAD, resting comfortably, AA&O x 4, answering questions and follwoing commands HEENT - NC/AT, PERRL, EOMI, MMM, Neck supple Heart - +S1/S2, regular, no m/r/g Lungs - CTA Abd - +BS, soft, NT/ND Ext - No edema Neuro - LLE 4/5 strength otherwise intact with no deficit Labs and images reviewed Assessment/Plan - suspect acute CVA -Admit with telemetry, neuro checks, aspiration precautions -BP control with IV Labetalol, Goal <220/120 -Check MRI brain -2D echo -Statin and antiplatelet agent -Neuro consult appreciated -Remainder of plan as above Resident Activity Tracking Resident Involvement: Resident Care Provided Care Provided: Adult Hospital Medicine (1) CVA (cerebral vascular accident) CVA mechanism: unspecified Qualified Code(s): I63.9 - Cerebral infarction, unspecified
[2019-10-09] MEDS ORDERED: HydrALAZINE HCL 20 MG/ML VIAL IV STA (00:46)
[2019-10-09] MEDS ORDERED: MECLIZINE 12.5 MG TAB PO PRN (01:05)
[2019-10-09] MEDS ORDERED: ALUMINUM/MAGNESIUM SUSP 30 ML UDC PO PRN (01:05)
[2019-10-09] MEDS ORDERED: DOCUSATE SODIUM 100 MG CAP PO PRN (01:05)
[2019-10-09] MEDS ORDERED: LABETALOL HCL IV 5 MG/ML 20ML IV PRN (01:05)
[2019-10-09] MEDS ORDERED: ONDANSETRON INJ 2 MG/ML 2 ML VIAL IV PRN (01:05)
[2019-10-09] MEDS ORDERED: FUROSEMIDE 20 MG TAB PO PRN (01:05)
[2019-10-09] MEDS ORDERED: NITROGLYCERIN SL 0.4 MG/TAB TAB SL PRN (01:05)
[2019-10-09] MEDS ORDERED: ACETAMINOPHEN 325 MG TAB PO PRN (01:05)
[2019-10-09] MEDS ORDERED: PHARMACIST DISCHARGE MED REC CONSULT PRN (01:05)
[2019-10-09] MEDS ORDERED: ALBUTEROL HFA 8 GM INHALER INH PRN (01:30)
[2019-10-09] MEDS ORDERED: LORazepam 1 MG/2 ML VIAL IV STA (04:35)
[2019-10-09] MEDS ORDERED: GADOBUTROL 65ML VIAL IV PRN (06:13)
[2019-10-09 07:04] LABS: Basophils # (auto) 0.03 K/uL (0-0.2); Basophils % (auto) 0.5 %; Eosinophils # (auto) 0.17 K/uL (0-0.5); Eosinophils % (auto) 2.6 %; Hematocrit (blood only) 39.2 % (37-47); Hemoglobin 12.3 g/dL (12.0-16.0); Immature Granulocytes # (auto) 0.02 K/uL (0.00-0.02); Immature Granulocytes % (auto) 0.3 %; Lymphocytes # (auto) 1.45 K/uL (1.2-3.4); Lymphocytes % (auto) 22.1 %; Mean Corpuscular Hemoglobin 29.6 pg (25-34); Mean Corpuscular Hgb Conc 31.4 g/dL (32-36); Mean Corpuscular Volume 94.5 fL (80-100); Mean Platelet Volume 9.9 fL (7.4-10.4); Monocytes # (auto) 0.73 K/uL (0.11-0.59); Monocytes % (auto) 11.1 %; Neutrophils # (auto) 4.15 K/uL (1.4-6.5); Neutrophils % (auto) 63.4 %; Platelet Count 313 K/uL (130-400); RDW Coefficient of Variation 14.5 % (11.5-14.5); RDW Standard Deviation 49.6 fL (36.4-46.3); Red Blood Count 4.15 M/uL (4.2-5.4); White Blood Count 6.55 K/uL (4.8-10.8)
--- NOTE | 2019-10-09 07:08 | Magnetic Resonance Report ---
MR brain wo/w con HISTORY: 74 years-old Female cva acute strokelike symptoms COMPARISON: Head CT, CTA head and neck 10/08/2019 TECHNIQUE: Multiplanar multisequence MRI of the brain was obtained both with and without the use of 1 0.2 mL Gadavist FINDINGS: Soil Expert localizer images demonstrate no gross extracranial abnormality. There is no restricted diffusio n to suggest acute or subacute infarct. The previously questioned hypodensities of the left frontal l obe are likely related to artifact or slice selection with normal brain parenchyma. The midline struc tures including the corpus callosum, brainstem, optic chiasm, pituitary and pineal glands appear unre markable the sagittal T1 series. There is no cerebellar tonsillar herniation. Degenerative changes ar e noted about the imaged cervical spine. Study is motion degraded. No acute intracranial hemorrhage, midline shift, abnormal extra-axial collection, hydrocephalus or in tracranial mass. Age-related involutional changes. Moderate patchy T2/FLAIR hyperintensities about th e white matter suggest probable chronic microvascular ischemic disease. The major vascular flow voids appear patent. Mastoid air cells are generally clear. Mild mucosal thickening of the ethmoid air michi ls. Prior bilateral lens replacement. Skull and soft tissues are unremarkable. No abnormal intra-axia l or extra-axial enhancement. IMPRESSION: 1. Motion degraded exam without acute intracranial abnormality identified. Specifically, there is no acute or subacute infarct. 2. Mild age-related involutional changes with moderate T2/FLAIR hyperintensities throughout the white matter suggestive of chronic microvascular ischemic disease. 3. No abnormal enhancement. ACT 112: Negative or not required by law. The above report was generated using voice recognition software. It may contain grammatical, syntax o r spelling errors. Electronically signed by: Jeremiah Pickett M.D. 10/09/2019 7:07 AM
[2019-10-09 07:44] LABS: BUN Creatinine Ratio 18.2 (10-20); Calcium 9.3 mg/dl (8.5-10.1); Creatinine Clr Calc Pharmacy 47.9 ml/min; Est GFR (Non-African American) 47.5; Estimated Average Glucose 128 mg/dl; Hemoglobin A1C 6.1 % (4.5-5.6); Potassium 3.9 mmol/L (3.5-5.1)
[2019-10-09] MEDS: AMIODARONE 200 MG TAB PO SCH (08:18)
[2019-10-09] MEDS: CYANOCOBALAMIN 500 MCG TABLET (VITAMIN B-12) PO SCH (08:18)
[2019-10-09] MEDS: FERROUS SULFATE 325 MG TAB PO SCH ×3 (08:18→17:13)
[2019-10-09] MEDS: POTASSIUM CHLORIDE 10 MEQ TABCR PO SCH (08:19)
[2019-10-09] MEDS: ROSUVASTATIN CALCIUM 20 MG TAB PO SCH ×2 (08:19→08:21)
[2019-10-09] MEDS: ASPIRIN 81 MG ECTAB PO SCH (08:19)
[2019-10-09] MEDS ORDERED: ASPIRIN 81 MG ECTAB PO SCH (09:00)
[2019-10-09] MEDS ORDERED: LOSARTAN POTASSIUM 25 MG TAB PO SCH (10:00)
[2019-10-09] MEDS: APIXABAN 5 MG TABLET PO SCH ×2 (11:08→20:35)
--- NOTE | 2019-10-09 16:04 | XCELERA ---
[id number]
--- NOTE | 2019-10-09 18:18 | Hospitalist Progress Note ---
Date of Service October 09, 2019 Assessment & Plan (1) Left leg weakness: Unclear etiology. MRI Brain negative for CVA. Possibly hypertensive emergency +/- related to late effects of prior stroke although she notes never having these symptoms previously. Discussed with neurology and story she gave was different with onset of leg co- ordination/weakness on waking rather than after taking nitroglycerin which would fit better with above. Given non-convincing evidence of stroke and prior history of lumbar spinal stenosis will get MRI lumbar spine to assess need for orthopedic evaluation and if no significant etiology on this then it would be more supportive of stroke recrudescence. Additionally prior vitamin B12 level 288 in 2018. She takes supplementation therefore this should now be improved but will repeat level to make sure no absorption issue given this is mostly a co-ordination issue. (2) Stroke-like symptom: as above (3) Hypertension: Increase losartan to 25mg BID. She reports most of her elevated blood pressures are at night. (4) Lumbar spinal stenosis: Noted history of this. She was supposed to see [facility] ortho approximately 2 years ago. (5) Paroxysmal atrial fibrillation with RVR: Continue anticoagulation with Eliquis. Currently in NSR. Rhythm control strategy with amiodarone. (6) Hyperlipidemia: Pt reports intolerance to prior statins. Will d/c rosuvastatin as no longer taking this. Admission and Anticipated Discharge Date Admission Date: October 08, 2019 Subjective Patient generally feeling well. Re-discussed history and consistent with H&P. She reports initially having palpitations and then taking nitroglycerin despite no chest pain, dizziness or shortness of breath. She then reported having sudden onset weakness and co-ordination issues with just her left lower extremity. Never had this previously. She reports this is ongoing and has not improved since admission. She feels unbalanced. She has known Lumbar spinal stenosis and was supposed to be seen by [facility] approximately 2 years ago but reports never having it evaluated. She reports 15 minutes of being able to stand until she has significant pseudoclaudication and numbness in her bilateral upper thighs. This is at her baseline for multiple months. No recent falls. No perianal numbness, change in urinary or bowel incontinence. With regards to her HTN she reports this usually occurs at night. She takes nitroglycerin but it only temporarily helps to bring it down. Not associated with chest pain. Review of Systems Review of Systems: All systems reviewed & are unremarkable except as noted in HPI & below Physical Exam Constitutional: WD/WN, vitals as above no acute distress Eyes: PERRL, conjunctivae normal, anicteric sclerae ENMT: external ear and nose normal, oropharynx normal Respiratory: normal respiratory effort, lungs clear to auscultation Cardiovascular: RRR, no murmur, no edema Gastrointestinal (Abdomen): Inspection/Auscultation: abdomen normal to inspection and normal bowel sounds Percussion/Palpation: abdomen soft; abdomen nontender, no guarding and abdomen not rigid Skin: no rashes, warm and dry Neurologic: normal touch/pain/proprioception, CN's II-XI intact bilaterally, plantar reflexes intact bilaterally, moves all extremities, + focal motor deficit (4+/5 hip flexion on L, 5/5 on R, otherwise no lateralizing weakness) and awake; not confused Speech / Cognition: normal speech Motor/Sensory: no pronator drift Psychiatric: A+Ox3, euthymic affect Results & Data Results & Data ([facility]) Vital Signs (Past 12 Hours) Vital Signs Temp Pulse Pulse Resp BP Pulse Ox 10/09/19 15:28 36.4 C L 72 18 162/66 H 97 10/09/19 11:49 36.5 C 66 20 164/82 H 98 10/09/19 11:34 97 10/09/19 07:19 56 L PG Care Time/CCT Total # of Minutes Spent Total Time Spent with Patient: Total time spent is greater than 50% in coordination of care (as documented) at patient's floor/unit and/or counseling patient: Coding Level of Care Code 15483 Subseq Hosp Care Lvl 3 Diagnoses Left leg weakness R29.898 Stroke-like symptom R29.90 Hypertension I10 Hypertension type: essential hypertension Lumbar spinal stenosis M48.061 Paroxysmal atrial fibrillation with RVR I48.0 Hyperlipidemia E78.2 Hyperlipidemia type: mixed hyperlipidemia (1) Hypertension Hypertension type: essential hypertension Qualified Code(s): I10 - Essential (primary) hypertension (2) Hyperlipidemia Hyperlipidemia type: mixed hyperlipidemia Qualified Code(s): E78.2 - Mixed hyperlipidemia
--- NOTE | 2019-10-09 18:32 | Neurology Consultation ---
Date of Consultation October 09, 2019 Assessment & Plan (1) Lumbar spinal stenosis: (2) Stroke-like symptom: Migdalia Elkins is a 74 yo woman w/ PMH of anemia, asthma, A. 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 # LLE weakness: no clear new stroke seen on MRI of the brain. She could have worsening left lower extremity weakness from her prior right basal ganglia stroke however she denies any infectious symptoms at this time. Differential includes stroke recrudescence from underlying infection/stress versus lumbar stenosis leading to radiculopathy symptoms, however she does note that she has no pain is just weakness that is most bothersome to her. -Agree with inpatient rehab for gait training and lower extremity strengthening -Would consider getting a lumbar x-ray to rule out any fracture or significant spinal stenosis that would need to be seen by orthopedics while she is admitted -Would also obtain urinalysis to rule out infection as cause of possible stroke recrudescence Thank you for this interesting consult. Plan of care discussed with primary team. Please call or text with questions. (3) residential (current) use of anticoagulants: (4) Left leg weakness: History of Present Illness Attending Physician: Bartolome Rodriguez MD History of Present Illness Migdalia Elkins is a 74 yo woman w/ PMH of anemia, asthma, A. 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 Last seen well ~11am on same date. In the ED, BP 200/82, heart rate 62, respiratory rate 16. Labs notable for WBC 6.82, hemoglobin 12.5, platelets 312, INR 1, creatinine 1.31, glucose 139, troponin negative. Chest x-ray showed cardiomegaly with mild atelectasis. CT head showed generalized atrophy with small vessel disease. CTA was notable for diffuse intracranial atherosclerosis with moderate stenosis of the left P2 and severe stenosis of the right A2, mild bilateral intracranial stenosis. MRI of the brain showed mild generalized atrophy with moderate small vessel ischemic disease, chronic infarcts as above, no new infarcts. On examination today, she reports that she is still having difficulty with her left lower extremity was concerned that maybe she had a stroke. She denies any recent illnesses or infections, or changes in medications. Labs notable for A1c 6.1, LDL 149, echo showed EF 60-65% with mild LVH. She is also concerned that her symptoms could be related to her known lumbar stenosis however they are more severe than they have been in the past. Allergies Allergy/AdvReac Type Severity Reaction Status Date / Time oxycodone Allergy Unknown Verified 10/08/19 21:07 rosuvastatin [From Crestor] Allergy Unknown Verified 10/08/19 21:07 Cipro AdvReac Unknown pill - N/V Verified 06/01/17 11:51 ciprofloxacin AdvReac Unknown pill - N/V Verified 10/08/19 21:07 metronidazole AdvReac Unknown PILL - N/V Verified 10/08/19 21:07 morphine AdvReac Unknown BIG MENTAL Verified 10/08/19 21:07 STATUS CHANGES Home Medications Home Medications Medication Instructions Recorded Confirmed Type albuterol sulfate 90 mcg/actuation 2 puffs INH Q4H PRN #18 gm 11/21/18 10/08/19 Rx aerosol inhaler furosemide 20 mg tablet 20 mg PO DAILY PRN #30 tab 11/22/18 10/08/19 Rx amiodarone 200 mg tablet 200 mg PO DAILY #90 tab 01/23/19 10/08/19 Rx cyanocobalamin (vitamin B-12) 1,000 mcg SL DAILY #90 tab 01/23/19 10/08/19 Rx 1,000 mcg sublingual tablet ferrous sulfate 325 mg (65 mg 325 mg PO TID #270 tab 01/23/19 10/08/19 Rx iron) tablet potassium chloride 10 mEq 10 meq PO DAILY #90 tab 01/23/19 10/08/19 Rx tablet,extended release nitroglycerin 0.4 mg sublingual 0.4 mg SL Q5M PRN #25 tab 02/07/19 10/08/19 Rx tablet meclizine 12.5 mg tablet 12.5 mg PO TID PRN #15 tab 05/09/19 10/08/19 Rx docusate sodium 100 mg capsule 100 mg PO BID PRN cap 05/15/19 10/08/19 History apixaban 5 mg tablet 5 mg PO BID #60 tab 05/30/19 10/08/19 Rx losartan 25 mg tablet 25 mg PO DAILY #90 tab 07/07/19 10/08/19 Rx Patient History Medical History Anemia Asthma, acute Atrial fibrillation Back pain Carotid artery stenosis Carotid stenosis, bilateral Chronic constipation Diabetes Hyperlipidemia Hypertension Paroxysmal atrial fibrillation with RVR PND (paroxysmal nocturnal dyspnea) Situational anxiety VRE (vancomycin-resistant Enterococci) Surgical History H/O colectomy History of meniscectomy of right knee Family History Other Cancer Diabetes Heart disease Stroke Social History Preferred Language: Egyptian Communication Ability: Effective Brand Marketing Manager Required: No Beliefs That Will Affect Care: None marital status: Current Living Situation: Spouse Other Information That Helps Us Care for You: No Feels Safe at Home: Yes Safety Concerns: Feels Safe At This Time Smoking Status: Former smoker Smoking End Date: 2 years ago ; Hx Alcohol Use: No Hx Substance Use: No Review of Systems Review of Systems: 14 point review of systems completed and negative except as in HPI. Exam (Neuro) Physical Exam: General Exam: GEN: NAD, sitting down in examination bed. HEENT: No conjunctival injection, no rhinorrhea. CV: RRR on monitor, no significant edema. PULM: Nonlabored respirations on room air. Neuro Exam: MS: Awake and Alert. Oriented to person, place, and date. Speech fluent and appropriate without dysarthria or paraphasic errors. Language intact including naming, comprehension, repetition. Cognition and memory grossly intact. Attention intact. No neglect. CN: Visual sherman full, + blink to threat bilaterally. No extinction to double simultaneous stimuli. Unable to clearly visualize fundoscopic exam. PERRLA OU. EOMI without nystagmus. Facial sensation intact to LT. Facial muscles full and symmetric. Hearing intact to finger rub bilaterally. Uvula midline with symmetric palatal elevation. SCMs and shoulder shrug normal. Tongue midline. MOTOR: Normal bulk and tone. No pronator drift. BUE strength 5/5 at deltoids, biceps, triceps, wrist flexors and extensors, and finger flexors bilaterally. RLE strength 5/5 at iliopsoas, hamstrings, quadriceps, tibialis anterior, and gastrocnemius. LLE 5-/5 at iliopsoas, hamstrings, quads, 4+/5 at TA, 5/5 at gastroc. REFLEXES: 1+ at biceps, triceps, brachioradialis, 1+ patella, and absent Achilles bilaterally. Flexor plantar responses bilaterally. SENSORY: Intact to LT throughout, no extinction to double simultaneous stimuli. COORDINATION: No dysmetria or ataxia on [id number] bilaterally. Normal Mitali bilaterally. GAIT: Slow, cautious gait with walker. NIH STROKE SCALE 1A. Level of Consciousness (0-3) = 0 1B. LOC Questions (0-2) = 0 1C. LOC Commands (0-2) = 0 2. Best Horizontal Gaze (0-2) = 0 3. Visual Sherman (0-3) = 0 4. Facial Palsy (0-3) = 0 5. Motor Arm Right (0-4) = 0 Left (0-4) = 0 6. Motor Leg Right (0-4) = 0 Left (0-4) = 0 7. Limb Ataxia (0-2) = 0 8. Sensory (0-2) = 0 9. Best Language (0-3) = 0 10. Dysarthria (0-2) = 0 11. Extinction and Inattention (0-2) = 0 NIHSS TOTAL = 0 Results & Data ([facility]) Vital Signs (Past 12 Hours) Vital Signs Temp Pulse Pulse Resp BP Pulse Ox 10/09/19 15:28 36.4 C L 72 18 162/66 H 97 10/09/19 11:49 36.5 C 66 20 164/82 H 98 10/09/19 11:34 97 10/09/19 07:19 56 L PG Care Time/CCT Total # of Minutes Spent Total Time Spent with Patient: Total time spent is greater than 50% in coordination of care (as documented) at patient's floor/unit and/or counseling patient: Coding Level of Care Code 92625 Initial Inpt Care Lvl 3 Diagnoses Lumbar spinal stenosis M48.061 Stroke-like symptom R29.90 residential (current) use of anticoagulants Z79.01 Left leg weakness R29.898
[2019-10-09] MEDS: LOSARTAN POTASSIUM 25 MG TAB PO SCH (20:35)
--- NOTE | 2019-10-09 22:19 | Electrocardiogram Report ---
Test Reason : Blood Pressure : / mmHG Vent. Rate : 058 BPM Atrial Rate : 058 BPM P-R Int : 202 ms QRS Dur : 078 ms QT Int : 442 ms P-R-T Axes : 049 014 039 degrees QTc Int : 433 ms Sinus bradycardia Inferior infarct , age undetermined Possible Anterior infarct , age undetermined Abnormal ECG No previous ECGs available Confirmed by Lizandro Caro ([id number]) on 10/09/2019 10:20:11 PM Referred By: REFERRED SELF Confirmed By:Lizandro Caro
[2019-10-10] MEDS ORDERED: LORazepam 1 MG/2 ML VIAL IV STA (01:43)
[2019-10-10] MEDS: POTASSIUM CHLORIDE 10 MEQ TABCR PO SCH (08:46)
[2019-10-10] MEDS: ASPIRIN 81 MG ECTAB PO SCH (08:46)
[2019-10-10] MEDS: APIXABAN 5 MG TABLET PO SCH (08:46)
[2019-10-10] MEDS: ROSUVASTATIN CALCIUM 20 MG TAB PO SCH (08:46)
[2019-10-10] MEDS: CYANOCOBALAMIN 500 MCG TABLET (VITAMIN B-12) PO SCH (08:46)
[2019-10-10] MEDS: FERROUS SULFATE 325 MG TAB PO SCH ×2 (08:47→12:24)
[2019-10-10] MEDS: AMIODARONE 200 MG TAB PO SCH (08:47)
[2019-10-10] MEDS: LOSARTAN POTASSIUM 25 MG TAB PO SCH (08:47)
--- NOTE | 2019-10-10 08:50 | Magnetic Resonance Report ---
MR lumbar spine wo con CLINICAL HISTORY: 74 years-old Female with lumbar spinal stenosis, generalized LLE weakness. Acute l eft leg pain and weakness with chronic low back pain. COMPARISON: MRI lumbar spine 10/01/2016. TECHNIQUE: Multiplanar, multi sequence MRI of the lumbar spine was performed without intravenous cont rast. FINDINGS: Tassel Maker localizer images demonstrate no gross extraspinal abnormality. Nonspecific trace fluid is noted within the region of the left adnexum. No aortic aneurysm or adenopathy identified. Paraspinal tissu es are unremarkable. Increased T2 signal within the presacral tissues suggestive of normal vascularit y. No acute fracture, subluxation or bone marrow edema. Conus medullaris terminates at the level of L 1. Signal within the imaged thoracic spinal cord is unremarkable. The cauda equina also appears to be within normal limits. T12-L1: Mild disc space narrowing and spondylitic spurring with small posterior annular disc bulge a nd mild facet arthrosis. No central canal or foraminal narrowing. Unchanged. L1-L2: Mild disc space narrowing and spondylitic spurring with small posterior annular disc bulge an d moderate facet arthrosis. There is no central canal or foraminal narrowing. Unchanged. L2-L3: Mild to moderate disc space narrowing is noted with mild spondylitic spurring, small posterio r annular disc bulge, ligamentum flavum thickening and moderate facet arthrosis with trace facet effu sions. Flattening of the ventral thecal sac is noted without significant central canal or foraminal n arrowing. Unchanged. L3-L4: Mild posterior intervertebral disc space narrowing. Mild spondylitic spurring with ligamentum flavum thickening, trace facet effusions with moderate to severe facet arthrosis. Flattening of the ventral thecal sac is noted without significant central canal stenosis. There is mild narrowing of th e inferior left neural foramen. The right neural foramen is patent. These findings have overall impro simin from prior study and the previously noted central disc protrusion has decreased in size and has n early resolved in the interval. L4-L5: Moderate intervertebral disc space narrowing with mild spondylitic spurring, ligamentum flavu m thickening and severe facet arthrosis. Posterior annular disc bulge flattens the ventral thecal sac . These findings result in mild to moderate central canal stenosis with moderate narrowing of the lat eral recesses. Mild to moderate right and mild left foraminal narrowing. No significant change from c omparison. L5-S1: Severe disc space narrowing is noted with associated spondylitic spurring, circumferential an nular disc bulge and severe facet arthrosis. Flattening of the ventral thecal sac is noted without si gnificant central canal stenosis. Mild right foraminal narrowing. The left foramen is patent. No sign ificant change from comparison. IMPRESSION: 1. No acute fracture, subluxation or significant bone marrow edema. 2. Multilevel discogenic degeneration with facet arthrosis and ligamentum flavum thickening as detail ed above. There is decreased size of the previously noted central disc protrusion at L3-L4. The remai nder of the findings are generally unchanged from the 2017 exam. 3. No high-grade central canal or foraminal narrowing. ACT 112: Positive. There are findings on this exam that require communication between the performing entity and the patient following Patient Test Result Information Act ([place] Act 112) guidelines. The above report was generated using voice recognition software. It may contain grammatical, syntax o r spelling errors. Dictated: 10/10/2019 6:53 AM Transcribed: 10/10/2019 8:19 AM Farideh [id number] [email or web address] Electronically signed by: Jeremiah Pickett M.D. 10/10/2019 8:49 AM
--- NOTE | 2019-10-10 13:58 | Discharge Summary ---
Date of Service October 10, 2019 Admission HPI Per Admitting Provider 74 yo F with PMH paroxysmal Afib on Eliquis, HTN, HLD presents with concerns of L LE weakness. Pt with h/o CVA admitted to [facility] ED in Apr 2019 for right hand weakness, since recovered. Pt was found to have left basal ganglia infarct with intracranial and extracranial atherosclerotic disease and was discharged on pravastatin; however, this was discontinued as pt noted myalgias with this and also did not tolerate other statins due to myalgias. Looking at outpt notes, it appears it was not felt that she needed to be on antiplatelet therapy and to continue Eliquis as prescribed. Today around 9AM pt was doing dishes after breakfast and noted some palpitations, felt HR to be in the 120s. Pt notes that she goes into Afib maybe once per month. Pt took 3 nitroglycerin and ultimately felt a little better like it usually does. She went to sleep for a few hrs and when she woke up noted a weird sensation in L knee 'like it felt backwards.' This gradually worsened throughout the day. Later in evening, L LE felt weak and felt like it was going to give out whenever ambulating. No alleviating factors. Some associated dizziness (orthostatic in nature) and KEITA s/p nitro along with weakness, but pt otherwise denies any neurological sxs of numbness/tingling, falls, impaired speech/swallow, vision changes, KEITA, CP, diaphoresis, SOB, syncope or near syncope, edema, F/N/V/D, cough, urinary sxs, or recent known exposures to covid individuals or recent travel anywhere. Pt with no other acute concerns or complaints. Pertinent Labs: Cr 1.31, Glu 139 otherwise largely unremarkable Head CT: No acute intracranial hemorrhage or mass effect. Equivocal small hypodense focus within the left frontal lobe. This could reflect artifact or a small acute infarct. White matter hypodensities which suggest small vessel disease. Head CTA: No intraluminal thrombus or abrupt vessel cutoff. Moderate multifocal stenoses within the intracranial circulation. Neck CTA: Moderate plaque within the proximal bilateral internal carotid arteri es with 50% stenoses at the origins of the bilateral internal carotid arteries. No dissection. Patent bilateral vertebral arteries. ER Course: Spoke to Dr. Garsia from stroke neurology and agreed that given the timeframe/pt on Eliquis she is not a TPA candidate Social Hx: former smoker (~50 yrs) quit 2 yrs ago. Denies any alcohol or illicit drug use. Surgical Hx: meniscectomy of right knee, colectomy Admission Exam Per Admitting Provider Constitutional: WD/WN, vitals as above no acute distress Eyes: PERRL, conjunctivae normal, anicteric sclerae ENMT: external ear and nose normal, oropharynx normal Respiratory: normal respiratory effort, lungs clear to auscultation Cardiovascular: RRR, no murmur, no edema Gastrointestinal (Abdomen): normal bowel sounds, soft, nontender, no hepatosplenomegaly Skin: no rashes, warm and dry Neurologic: CN's II-XI intact bilaterally; no focal motor deficits Speech / Cognition: normal speech Mild weakness (4/5 strength) in LLE against passive resistance. 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 Paroxysmal atrial fibrillation Left knee osteoarthritis Discharge Exam Constitutional well developed and + morbidly obese; no acute distress Eyes + anicteric sclerae; normal pupil size ENMT external ear and nose normal, oropharynx normal Respiratory normal respiratory effort, lungs clear to auscultation Cardiovascular RRR, no murmur, no edema Skin no rashes, warm and dry Neurologic normal touch/pain/proprioception, CN's II-XI intact bilaterally, plantar reflexes intact bilaterally, moves all extremities and awake; no focal motor deficits (5/5 hip flexion b/l, no objective difference) and not confused Speech / Cognition: normal speech Motor/Sensory: no pronator drift Coordination: normal [id number] test Psychiatric A+Ox3, euthymic affect Discharge Data Allergies Allergy/AdvReac Type Severity Reaction Status Date / Time oxycodone Allergy Unknown Verified 10/08/19 21:07 rosuvastatin [From Crestor] Allergy Unknown Verified 10/08/19 21:07 Cipro AdvReac Unknown pill - N/V Verified 06/01/17 11:51 ciprofloxacin AdvReac Unknown pill - N/V Verified 10/08/19 21:07 metronidazole AdvReac Unknown PILL - N/V Verified 10/08/19 21:07 morphine AdvReac Unknown BIG MENTAL Verified 10/08/19 21:07 STATUS CHANGES Consultations 10/08/19 21:31 ED Decision to Admit Stat 10/09/19 01:05 Consult Case Management - Discharge Planning Routine Consult Neurology Routine Ordered Studies 10/08/19 20:06 CT angio head w con Stat CT angio neck with con Stat CT head/brain wo con Stat 10/09/19 01:05 MR brain wo/w con Routine 10/10/19 07:00 MR lumbar spine wo con Routine Hospital Course (1) Left leg weakness: Migdalia Elkins is a 74 year old female admitted to [facility] from October 07 to 2019 due to stroke-like symptoms with left lower extremity weakness and poor balance. No new stroke was found on brain MRI. Since this occurred 2 hours after taking nitroglycerin suspect this medication caused by a rebound hypertensive emergency causing a late effect of her previous right cerebellar stroke. Losartan increased to BID dosing to help better manage her blood pressure which appeared to be mostly elevated at night. Objectively she does not have any weakness or change in co-ordination on her left lower extremity but she continues to feel unbalanced on this leg. I suspect her ongoing balance issues are multifactorial but given history of lumbar spinal stenosis and concern for ongoing falls if this was causing it she underwent lumbar spine MRI which showed no acute pathology to explain her acute weakness. Based on exam, I suspect she has left SI joint arthritis and left knee OA also contributing towards her balance issues. Pain in the center of her back is most likely facet joint arthritis rather than any lumbar spinal stenosis. She was evaluated by physical therapy and her balance improved. She wished to be discharged home with physical therapy and script was given for this. She took nitroglycerin because she felt she was in atrial fibrillation. I am unc lear on what she has previously been told by her vaccine specialist but I advised her not to take this unless she was having chest pain. If she needs something PRN for her atrial fibrillation I advised that would likely be a rate controlling medication such as metoprolol but suggested she discusses this further with her vaccine specialist. Since no new acute stroke occurred, no new neurology appointments have been arranged. She should follow up with her PCP regarding her blood pressure and her orthopedic surgeon regarding her ongoing arthtritis pains. 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 No new stroke was found on brain MRI. Since this occurred 2 hours after taking nitroglycerin suspect this is caused by a rebound hypertensive emergency causing a late effect of your previous right cerebellar stroke. We have increased your losartan to take twice a day to help better manage your blood pressure. Recommend making an appointment with your vaccine specialist to discuss management of your atrial fibrillation but in the mean time recommend against taking nitroglycerin if your only symptom is palpitations. Nitroglycerin should be taken if you are having chest pain. You also underwent a lumbar spine MRI which did not show any significant changes to suspect this is the cause of your left lower extremity weakness. Suspect a lot of your back pain is facet joint arthritis (between your vertebra) and on the left back suspect this is arthritis in your sacro-iliac joint. You pains behind your knees is likely more osteoarthritis related than coming from your back. Since no new acute stroke recommend just following up with your primary care physician for ongoing management of your blood pressure. No new neurology bhavin ointments have been arranged. Kind regards, Dr Bartolome Rodriguez Pending Studies at Discharge: No Stand-Alone Forms: My [facility], Smoking Cessation Medications and DC Order Prescriptions: Continued furosemide 20 mg tablet 20 mg PO DAILY PRN (Reason: edema) Qty: 30 RF: 2 amiodarone 200 mg tablet 200 mg PO DAILY Qty: 90 RF: 3 cyanocobalamin (vitamin B-12) 1,000 mcg tablet, sublingual 1,000 mcg SL DAILY Qty: 90 RF: 3 ferrous sulfate 325 mg (65 mg iron) tablet 325 mg PO TID Qty: 270 RF: 3 potassium chloride 10 mEq tablet extended release 10 meq PO DAILY Qty: 90 RF: 3 nitroglycerin 0.4 mg tablet, sublingual 0.4 mg SL Q5M PRN (Reason: chest pain) Qty: 25 RF: 0 docusate sodium [Colace] 100 mg capsule 100 mg PO BID PRN (Reason: Constipation) RF: 0 albuterol sulfate [ProAir HFA] 90 mcg/actuation HFA aerosol inhaler 2 puffs INH Q4H PRN (Reason: shortness of breath or wheezing) Qty: 18 RF: 0 meclizine 12.5 mg tablet 12.5 mg PO TID PRN (Reason: dizziness) Qty: 15 RF: 0 Eliquis 5 mg tablet 5 mg PO BID Qty: 60 RF: 5 Changed losartan 25 mg tablet 25 mg PO BID Qty: 90 RF: 3 Discharge Orders: Discharge Order (Routine); Ordered 10/10/19 Ordered By: Bartolome Heard/Other Patient Handouts: Prediabetes, A1C Admission Data Admit Date/Time: 10/08/19 23:21 Attending Provider: Bartolome Rodriguez Admit Provider: Terri Saleh Primary Care Provider: Anu Parker Other Providers: Vicky Medrano Other Interventions: Discharge Summary Assessment (RN) Last Done: 10/10/19 14:10 DC Date/Time DO NOT enter until pt leaves facility: 10/10/19 14:25 Coding Level of Care Code D/C Day Management >30 mins Diagnoses Left leg weakness R29.898 Stroke-like symptom R29.90 Hypertension I10 Hypertension type: essential hypertension Lumbar spinal stenosis M48.061 Paroxysmal atrial fibrillation with RVR I48.0 Hyperlipidemia E78.2 Hyperlipidemia type: mixed hyperlipidemia
== END 2019-10-10 14:25 | disposition home or self-care (01) | DRG 57 ==
LOC: ED 19:51 → 2W 23:21 → SUATTDRO 23:21 → 2W 10-09 00:15

== ENCOUNTER 2019-11-16 07:00 | Observation (INO) ==
[2019-11-16] MEDS ORDERED: LIDOCAINE HCL 1% 20 ML VIAL ONE (07:12)
[2019-11-16] MEDS ORDERED: BUPIVACAINE 0.25% 30 ML VIAL ONE (07:12)
[2019-11-16] MEDS ORDERED: BACITRACIN INJ 50,000 UNIT VIAL ONE (07:14)
[2019-11-16] MEDS ORDERED: MIDAZOLAM HCL 5 MG/ML 1 ML VIAL ONE ×2 (07:28→08:24)
[2019-11-16] MEDS ORDERED: fentaNYL citrate 100 MCG/2 ML VIAL ONE ×2 (07:28→08:24)
[2019-11-16] MEDS ORDERED: CEFAZOLIN 250 MG/ML 1 GM VIAL ONE (07:29)
--- NOTE | 2019-11-16 07:48 | History & Physical Bridge Note ---
Date of Service November 16, 2019 History & Physical Bridge Note I have examined the patient, reviewed the History & Physical and in the interval since the performance of the History & Physical I have noted the following changes of clinical significance: no changes noted. Some palpitations overnight
--- NOTE | 2019-11-16 07:48 | Pre Anesthesia Assessment ---
Date of Service November 16, 2019 Pre Sedation Assessment Vital Signs Temp Pulse Resp BP Pulse Ox 11/16/19 07:20 36.5 C 70 16 91/76 L 98 Cardiovascular + regular rate Respiratory + respiratory effort normal Pre-Sedation Airway Assessment Smoking Status: Former smoker Hx Sleep Apnea: No Hx Difficult Intubation: No Short, Thick Neck: No Thyromental Distance: > or= 3.5 Finger Breadths Oral Cavity: + Dentures Mallampati Class: II ASA: ASA3 NPO Status Date of Last Intake of Fluids: 11/15/19 Time of Last Intake of Fluids: 19:00 Date of Last Intake of Solid Food: 11/15/19 Time of Last Intake of Solid Foods: 19:00 Procedure Planning Contraindications for Sedation: none Current Medications Reviewed: Yes Notes The planned sedation has been discussed with the patient. Informed Consent was obtained. I have identified the patient, determined the appropriateness of sedation and have assessed the patient immediately prior to the procedure. All medicine(s) and interventions are by my order.
[2019-11-16] MEDS ORDERED: TRAMADOL HCL 50 MG TABLET PO PRN (08:58)
--- NOTE | 2019-11-16 08:58 | Electrophysiology Report ---
Date of Service November 16, 2019 Electrophysiology Procedure Electrophysiology Procedure Report Procedure performed: Implantation of dual-chamber permanent pacemaker Staff gill net stringer: Gage Robert MD Indication: The patient is a 74-year-old woman with a history of paroxysmal atri al fibrillation. She was recently noted to have high ventricular rates and some slow rates during periods of sinus rhythm. She is therefore felt to be a good candidate for permanent pacemaker due to tachybradycardia syndrome. She is a good candidate for symptomatic nonreversible sinus node dysfunction. A dual- chamber device was selected she is currently in sinus rhythm and wished to maintain AV synchrony Procedure in detail: The patient was informed of the risks benefits and alternatives to the intended procedure and she wished to proceed. She was taken to the electrophysiology suite in a fasting state. A preoperative antibiotic had been administered. The patient was monitored electrocardiographically throughout today's procedure and conscious sedation was administered per protocol. The left upper pectoral area is prepped and draped in usual sterile fashion. This area was anesthetized using subcutaneous administration of a xylocaine solution. An incision was made at this site and carried down to the prepectoralis fascia using sharp dissection. Electrocautery was also employed for dissection as well as for hemostasis. A device pocket was fashioned tissues above the pectoralis muscle. Subsequent to this maneuver the left axillary vein was accessed using modified Seldinger technique. Sheaths were placed over guidewires at this site and used to facilitate passage of the pacing leads to the respective chambers under fluoroscopic guidance. This included right atrial and right ventricular leads. Adequate sensing and threshold parameters were obtained prior to Active fixation of the leads to the endocardial surface. The proximal portion leads were then sutured the prepectoral fascia using nonabsorbable suture. The device pocket was irrigated with antibiotic solution. The leads were then attached to the device. The device and leads were then placed in the pocket and pocket was closed in 3 layers of absorbable suture. Steri-Strips and sterile dressing were applied. The device was tested noninvasively prior to conclusion the procedure. The patient tolerated procedure well there no immediate complications. Equipment used: New pulse generator: Satellite Project Site Monitor [employer]. Model number: [id number] serial number [id number] Right atrial lead: Satellite Project Site Monitor [employer]. Model number: 5076 serial number [id number] Right ventricular lead: Satellite Project Site Monitor Medtronic. Model number: 5076 serial number [id number] Measured data: Right atrial lead: P waves measure 4 mV. Pacing threshold 1.5 V at 0.4 ms with a pacing impedance of 608 ohms Right ventricular lead: R waves measured 11.5 mV. Pacing threshold is 1 V at 0.4 ms with a pacing pains of 703 ohms Impression: Successful implantation of dual-chamber permanent pacemaker MN[facility] Electrophysiology codes Pacing Procedure 1: Pacin Insert/Replace Pacer A & V PG Moderate Sedation Codes Moderate Sedation Codes Procedure 1: Sedation/Anesthesia: 39112 Mod Sedation by the same physician;Init15 Min Child Age 5 & Up Procedure 2: Sedation/Anesthesia: 91297 Mod Sedation by the same physician; Ea [id number] Minutes
--- NOTE | 2019-11-16 09:08 | Post Anesthesia Assessment ---
Date of Service November 16, 2019 Post Sedation Assessment Vital Signs Temp Pulse Resp BP Pulse Ox 11/16/19 09:00 36.5 C 60 16 153/106 H 99 11/16/19 07:20 36.5 C 70 16 91/76 L 98 Recovery Score Activity: Moves 4 extremities Respiration: Deep Breath/Cough Circulation: +/-20% PreAnes Value Consciousness: Fully Awake Oxygen Saturation: > 92% On Room Air Post Anesthesia Score: 10 Discharge Sedation Level of Care: Fast Track Phase II Post Sedation Plan On clinical assessment, the patient appears to have tolerated the sedation without complications. Patient is recovering as anticipated. Patient will continue to be monitored by nursing and may be discharged when sedation discharge criteria are met per below protocol. Upon Completions of procedure up to 15 minutes continue every 5 minute vital signs and the P.A.R. score; then discharge to a Phase I or Fast Track to Phase II per the following guidelines: * Discharge Patient to appropriate Phase II area if PAR is 8 or greater or return to pre- procedure baseline. The post - procedure orders will be as directed. * If PAR score is less than 8 or not return to pre-procedure baseline then patient will follow Phase I monitoring till PAR is reached for Phase II. The Phase I may be done in procedure room or may call to secure a Phase I area. * If naloxone or flumazenil are used for reversal, hold in Phase I for continued monitoring from when last reversal dose was given for a minimum of 60 minutes or longer pending the nurse and/or physician discretion of patient condition before discharge to Phase II. Please call the Sedation Physician to re-evaluate and complete post-note for discharge to Phase II area. Do NOT discharge from procedure sedation or Phase 1 until post- sedation evaluation note is complete by procedure /sedation MD Sedation Discharge Instructions to be given to the patient at discharge to home.
[2019-11-16] MEDS ORDERED: ALBUT/IPRATROP 3MG/0.5MG NEB 3 ML VIAL NEB PRN (12:19)
[2019-11-16] MEDS: ACETAMINOPHEN 325 MG TAB PO PRN ×2 (14:19→22:03)
[2019-11-16] MEDS ORDERED: CEFAZOLIN 1000MG 1,000 MG/7.5 ML SYR IV ONE (16:00)
[2019-11-16] MEDS: FERROUS SULFATE 325 MG TAB PO SCH (16:16)
[2019-11-16] MEDS: HYDROmorphone HCL 2 MG TAB PO PRN ×2 (18:21→23:46)
[2019-11-16] MEDS: LOSARTAN POTASSIUM 25 MG TAB PO SCH (20:35)
--- NOTE | 2019-11-17 06:37 | XRay Report ---
XR chest 2V PA/lateral HISTORY: 74 years-old Female EXACT TIME ORDERED Evaluate for pneumothorax and l status post placemen t of a left subclavian pacer COMPARISON: Chest radiograph 10/08/2019 TECHNIQUE: PA and lateral views of the chest FINDINGS: Lateral view is limited secondary to left upper extremity positioning. Cardiac silhouette is enlarged , unchanged. Left subclavian pacer is noted with leads appearing intact. No postprocedural pneumothor ax identified. Unchanged blunting of the costophrenic angles. Mild bibasilar densities suggest probab le atelectasis. There is no overt pulmonary edema. Degenerative changes of the shoulders and spine. IMPRESSION: Status post placement of a left subclavian pacer. No postprocedural pneumothorax. ACT 112: Negative or not required by law. The above report was generated using voice recognition software. It may contain grammatical, syntax o r spelling errors. Electronically signed by: Jeremiah Pickett M.D. 11/17/2019 6:35 AM
[2019-11-17] MEDS ORDERED: AMIODARONE 200 MG TAB PO SCH (09:00)
[2019-11-17] MEDS: LOSARTAN POTASSIUM 25 MG TAB PO SCH (09:45)
[2019-11-17] MEDS: FERROUS SULFATE 325 MG TAB PO SCH (09:45)
--- NOTE | 2019-11-17 10:14 | Discharge Summary ---
Date of Service November 17, 2019 Admission HPI Per Admitting Provider Patient with history of paroxysmal atrial fibrillation and tachy-lian syndrome. Principal Diagnosis q Discharge Exam The wound had mild amount of ecchymosis. No significant hematoma. No drainage. Chest x-ray demonstrated good lead position without pneumothorax Device interrogation revealed good function of both atrial ventricular leads Discharge Data Allergies Allergy/AdvReac Type Severity Reaction Status Date / Time oxycodone Allergy Unknown Verified 11/16/19 07:18 rosuvastatin [From Crestor] Allergy Unknown Verified 11/16/19 07:18 Cipro AdvReac Unknown pill - N/V Verified 06/01/17 11:51 ciprofloxacin AdvReac Unknown pill - N/V Verified 11/16/19 07:18 metronidazole AdvReac Unknown PILL - N/V Verified 11/16/19 07:18 morphine AdvReac Unknown BIG MENTAL Verified 11/16/19 07:18 STATUS CHANGES Procedures Performed Operation Date: 11/16/19 08:00 Actual Procedures p Pacer with A/V Leads (Dual) - Olayinka Robert MD Ordered Studies 11/16/19 06:34 CL Cath Imgs for PACS use only Routine Hospital Course (1) Paroxysmal atrial fibrillation with RVR: Patient underwent dual-chamber pacemaker implantation on the day of admission. The procedure was uncomplicated. Overnight she did have what appeared to be a drug eruption possibly related to administration of Dilaudid. This appears to have resolved. Currently no complaints. Normal function of her device without evidence of complication at the time of discharge. Total Time Total Time Spent Total Time Spent (In Minutes): 10 Total Time Includes: Examination of the Patient, Discharge Planning and Medication Reconciliation Discharge Plan Discharge Items Patient Disposition: Home - Self-Care Reason For Visit: Paroxysmal Atrial Fibrillation w/RVR Discharge Diagnosis: Tachy-lian syndrome Activity: Per Instructions section Activity Comment: No raising left arm above shoulder behind neck for 6 weeks Lifting: No more than 10 pounds Bathing: Keep incision dry Bathing Comment: Keep wound dry Steri-Strips intact until follow-up next week Driving/Machine Use: Resume 1 day after discharge Non-emergency contact: Fingernail Sculpturer Call non-emergency contact if: your pain is worsening, your wound has increased redness and your wound has increased drainage Follow-up/Referrals: Anu Parker PA-C [Primary Care Provider] - Diet: Heart Healthy Francisca Attending Provider Instructions: none Francisca Solar Energy Specialist Provider Instructions: He start Eliquis tomorrow morning 11/18/2019 Pending Studies at Discharge: No Stand-Alone Forms: My [facility] [employer], Smoking Cessation Medications and DC Order Prescriptions: New metoprolol succinate 25 mg tablet extended release 24 hr 25 mg PO DAILY Qty: 30 RF: 2 Continued cyanocobalamin (vitamin B-12) 1,000 mcg tablet, sublingual 1,000 mcg SL DAILY Qty: 90 RF: 3 ferrous sulfate 325 mg (65 mg iron) tablet 325 mg PO TID Qty: 270 RF: 3 nitroglycerin 0.4 mg tablet, sublingual 0.4 mg SL Q5M PRN (Reason: chest pain) Qty: 25 RF: 0 acetaminophen 1,000 mg PO BID RF: 0 albuterol sulfate [ProAir HFA] 90 mcg/actuation HFA aerosol inhaler 2 puffs INH Q4H PRN (Reason: shortness of breath or wheezing) Qty: 18 RF: 0 meclizine 12.5 mg tablet 12.5 mg PO TID PRN (Reason: dizziness) Qty: 15 RF: 0 Eliquis 5 mg tablet 5 mg PO BID Qty: 60 RF: 5 losartan 25 mg tablet 25 mg PO BID Qty: 90 RF: 3 Discontinued amiodarone 200 mg tablet 200 mg PO DAILY Qty: 90 RF: 3 Discharge Orders: Discharge Order (Routine); Ordered 11/17/19 Ordered By: Olayinka Robert Admission Data Admit Date/Time: 11/16/19 08:30 Attending Provider: Olayinka Robert Admit Provider: Olayinka Robert Primary Care Provider: Anu Parker Coding Level of Care Code 23920 OBS Care - Discharge Diagnoses Paroxysmal atrial fibrillation with RVR I48.0
== END 2019-11-17 12:10 | disposition home or self-care (01) ==
LOC: 1E 07:00 → EP 07:00

== ENCOUNTER 2021-08-14 06:10 | Inpatient (IN) ==
--- NOTE | 2021-06-20 16:25 | PAT Medication Instructions ---
Medication Instructions Date of Service June 20, 2021 Home Medications Medication Instructions Recorded ferrous sulfate 325 mg (65 mg 325 mg PO TID #270 tab 01/23/19 iron) tablet albuterol sulfate 90 mcg/actuation 2 puff INH Q4H PRN #18 gm 08/09/20 aerosol inhaler (ProAir HFA) alendronate 70 mg tablet (Fosamax) 70 mg PO WK #12 tab 12/25/20 furosemide 20 mg tablet 20 mg PO DAILY PRN #30 tab 05/20/21 metoprolol succinate 100 mg 150 mg PO QAM #90 tab 06/18/21 tablet,extended release 24 hr ferrous sulfate 325 mg (65 mg iron) tablet 325 mg PO TID cyanocobalamin (vitamin B-12) 1,000 mcg sublingual tablet 1,000 mcg SL QAM docusate sodium 100 mg capsule (Colace) 100 mg PO DAILY PRN acetaminophen 500 mg capsule 1,000 mg PO UD PRN albuterol sulfate 90 mcg/actuation aerosol inhaler (ProAir HFA) 2 puff INH Q4H PRN alendronate 70 mg tablet (Fosamax) 70 mg PO WK apixaban 5 mg tablet (Eliquis) 5 mg PO BID furosemide 20 mg tablet 20 mg PO DAILY PRN ezetimibe 10 mg tablet (Zetia) 10 mg PO QPM metformin 500 mg tablet,extended release 24 hr 500 mg PO QAM metoprolol succinate 100 mg tablet,extended release 24 hr 150 mg PO QAM Continue as directed alendronate 70 mg tablet (Fosamax) 70 mg PO WK (just do not take on morning of surgery) ASK your prescriber and surgeon apixaban 5 mg tablet (Eliquis) 5 mg PO BID DO NOT take the morning of surgery ferrous sulfate 325 mg (65 mg iron) tablet 325 mg PO TID cyanocobalamin (vitamin B-12) 1,000 mcg sublingual tablet 1,000 mcg SL QAM docusate sodium 100 mg capsule (Colace) 100 mg PO DAILY PRN furosemide 20 mg tablet 20 mg PO DAILY PRN metformin 500 mg tablet,extended release 24 hr 500 mg PO QAM Take morning of surgery With a small sip of water, OTHERWISE NOTHING TO EAT OR DRINK AFTER MIDNIGHT: acetaminophen 500 mg capsule 1,000 mg PO UD PRN (okay to take up to 4 hours prior to surgery if needed) albuterol sulfate 90 mcg/actuation aerosol inhaler (ProAir HFA) 2 puff INH Q4H PRN (use if needed; please bring with you to hospital day of surgery if possible) metoprolol succinate 100 mg tablet,extended release 24 hr 150 mg PO QAM Take evening before surgery ferrous sulfate 325 mg (65 mg iron) tablet 325 mg PO TID docusate sodium 100 mg capsule (Colace) 100 mg PO DAILY PRN (if needed) acetaminophen 500 mg capsule 1,000 mg PO UD PRN albuterol sulfate 90 mcg/actuation aerosol inhaler (ProAir HFA) 2 puff INH Q4H PRN furosemide 20 mg tablet 20 mg PO DAILY PRN (if needed) ezetimibe 10 mg tablet (Zetia) 10 mg PO QPM Other Notes If you have any questions please call us at [phone] or [phone] or or [phone]
--- NOTE | 2021-06-27 11:18 | Anesthesiology Consultation ---
Date of Service June 27, 2021 Assessment & Plan (1) Encounter for pre-operative examination: - check BSG am DOS. - pacemaker. - medical clearance. Workload note sent to PCP regarding mild hyperkalemia. - cardiology office note, upcoming per pt 07/11/2021. - discharge summary 06/11/2021 [facility]: "...c/o syncope...when she went to stand up following the bowel movement, she reports that she felt worsening weakness in her legs and her upper body along with lightheadedness and palpitations... was helping her at that time and left the room when she was sat on the floor to call for EMS when he heard a "thump" of her hitting the ground...unresponsive for about 10 minutes...workup was significant for leukocytosis with left shift...CXR shows no acute pathology...CT of the head and C spine shows no acute pathology. EKG shows atrial paced rhythm with a rate of about 74 bpm...Observed in telemetry...pacemaker was interrogated in the ED which demonstrated atrial fibrillation events but no ventricular arrhythmias. Echocardiogram done. Cardiology was consulted. Thought syncopal episode likely vaso vagal and didn't recommend any additional cardiac work up. Pt also has cough. CXR noted for suspected LLL pneumonia. Started on CAP treatment. Stable for discharge...Complete course of antibiotics...stop taking losartan..." Pt states that prior to event, would intermittently feel lightheaded without syncope and states that this has resolved since d/c of losartan. - anesthesia record: L4-L5 laminectomy 08/30/2020 [facility]: Grade 1 view, MAC#3, ETT#7.5, atraumatic x 1. No issues per anesthesia postop progress note. - COVID screening: Per assessment on 06/27/2021: Travel screen negative, no known COVID-19 positive contacts or current COVID-19 related symptoms in past 2 weeks. Patient vaccinated. Surgeon arranging preop COVID testing, scheduled 07/25/2021. Awaiting results. Chart Review Chart Review: Pending: Refer to Additional Notes / Consult section Teaching & Discussion Pre-Anesthesia Teaching/Discussion Notes: Instructed NPO after midnight before surgery, except medications with 15 cc of water. Medication instructions provided according to the PAT guidelines. History Surgery Operation Date: 07/29/21 07:45 Proposed Procedures p L4-L5 Revision Decompression and Fusion Spinal Cord Monitoring - [place], Height/Weight Height: 5 ft Weight: 95.3 kg Allergies Allergy/AdvReac Type Severity Reaction Status Date / Time hydrocodone Allergy Severe BIG MENTAL Verified 06/18/21 12:28 STATUS CHANGES morphine AdvReac Intermediate BIG MENTAL Verified 06/18/21 12:28 STATUS CHANGES oxycodone AdvReac Intermediate Confusion Verified 06/18/21 12:28 rosuvastatin [From Crestor] AdvReac Intermediate Muscle Verified 06/18/21 12:28 cramping ciprofloxacin AdvReac Unknown N/V Verified 06/18/21 12:28 hydromorphone [From Dilaudid] AdvReac Unknown Nausea Verified 06/18/21 12:28 metronidazole AdvReac Unknown N/V Verified 06/18/21 12:28 Medications Home Medications Medication Instructions Recorded Confirmed Last Taken ferrous sulfate 325 mg (65 mg 325 mg PO TID #270 tab 01/23/19 06/18/21 08/29/20 20:00 iron) tablet cyanocobalamin (vitamin B-12) 1,000 mcg SL QAM 04/15/20 06/18/21 08/29/20 08:00 1,000 mcg sublingual tablet docusate sodium 100 mg capsule 100 mg PO DAILY PRN 04/15/20 06/18/21 Unknown (Colace) acetaminophen 500 mg capsule 1,000 mg PO UD PRN 08/06/20 06/18/21 08/30/20 03:30 albuterol sulfate 90 mcg/actuation 2 puff INH Q4H PRN #18 gm 08/09/20 06/18/21 08/30/20 03:30 aerosol inhaler (ProAir HFA) alendronate 70 mg tablet (Fosamax) 70 mg PO WK #12 tab 12/25/20 06/18/21 Unknown apixaban 5 mg tablet (Eliquis) 5 mg PO BID tab 05/09/21 06/18/21 Unknown furosemide 20 mg tablet 20 mg PO DAILY PRN #30 tab 05/20/21 06/18/21 Unknown ezetimibe 10 mg tablet (Zetia) 10 mg PO QPM 06/17/21 06/18/21 Unknown metformin 500 mg tablet,extended 500 mg PO QAM 06/17/21 06/18/21 Unknown release 24 hr metoprolol succinate 100 mg 150 mg PO QAM #90 tab 06/18/21 06/18/21 Unknown tablet,extended release 24 hr Past Medical History Medical History (Updated 06/27/21 @ 12:07 by Brittany Yoder PA-C) Asthma, acute controlled per pt, last rescue inhaler use > 6 months Back pain Carotid artery stenosis Per neck CTA on 10/08/19- Moderate plaque within the proximal bilateral internal carotid arteries with 50% stenosis at the origins of the bilateral internal carotid arteries. PCP monitors CKD (chronic kidney disease) CVA (cerebral vascular accident) 05/19/19 > [facility]> PT REPORTS HAD SOME LEFT SIDED WEAKNESS -IMPROVED Diabetes Hgb A1C= 6.5 04/2021 GERD (gastroesophageal reflux disease) controlled, stable per pt History of recent hospitalization 05/2021 [facility] - d/c approx 1 week ago. Admitted with pneumonia and syncope. syncope felt to be vasovagal. Covid negative. Pt denies residual symptoms. f/u with PCP 06/18/2021: abx completion-CXR report did not state PNA, plan to obtain f/u CXR in 4 weeks Hyperlipidemia Hypertension controlled, stable per pt Morbid obesity with BMI of 40.0-44.9, adult Osteoporosis Paroxysmal atrial fibrillation with RVR PACEMAKER> ELIQUIS > FOLLOWS DR. ANDERSON > NO CARDIOVERSIONS DX 2014 Presence of permanent cardiac pacemaker Implant November 16, 2019. Dual chamber pacemaker. Medtronic generator W1D R 01. Implant performed by Dr. Judah Robert> Implanted secondary to SSS MOST RECENT CHECK 05/2021 Situational anxiety Patient denies h/o seizures, heart attack, heart failure, blood clots or blood transfusions. Exercise / Class Metabolic Activity III < 4 Walking/Shop/Light housework (denies CP or SOB with 5 steps) Past Family History Family History Mother Myocardial infarction Family history of diabetes mellitus Father Myocardial infarction Family history of diabetes mellitus Other Cancer Heart disease Stroke Denies family history of Ovarian cancer Prostate cancer Breast cancer Colorectal cancer Past Surgical History Surgical History (Updated 06/27/21 @ 11:14 by Brittany Yoder PA-C) H/O colectomy X2- SECONDARY TO DIVERICULITITS HAD TEMPORARY ILIEOSTOMY- SINCE REVERSED History of appendectomy History of carpal tunnel release RIGHT History of cataract surgery BILATERAL History of cholecystectomy History of colonoscopy History of esophagogastroduodenoscopy (EGD) History of hysterectomy History of lumbar surgery L4-L5 laminectomy 08/30/2020 [facility]: Grade 1 view, MAC#3, ETT#7.5, atraumatic x 1. No issues per anesthesia postop progress note. History of meniscectomy of right knee 05/13/2020: LMA#4, atraumatic x 1. No issues per anesthesia postop progress note. History of pacemaker History of tonsillectomy History of wisdom tooth extraction Hx of ileostomy SINCE REVERSED Past Anesthesia History No Hx of Anesthesia Complications and No Family Hx of Anesthesia Complications History of PONV No Hx of PONV and No Hx of Motion Sickness Social History Smoking Status: Former smoker tobacco type: cigarettes Do You Dip or Chew Tobacco: No Smoking End Date: 2017 Hx Alcohol Use: No Hx Substance Use: No substance use type: does not use Review of Systems Snoring, denies witnessed apneas or sleep studies. Patient denies chest pain, shortness of breath, dyspnea on exertion, fever, chills, cough, wheezing, or palpitations. Physical Exam Vital Signs Vitals BP 138/72 P 62 TEMP 97.8 SP02 96% on RA RESP 17 Physical Full cervical extension range of motion without pain Full TMJ range of motion TMD 3 finger breaths, difficult to palpate Mallampati Score 3 Dentition: edentulous, wears full upper and lower dentures Lungs: normal respiratory effort. Clear throughout to auscultation, no adventitious breath sounds Cardiac: regular rate and rhythm, no murmurs noted Carotid arteries: negative bruit bilat Extremities: no distal extremity edema Lab Results Anesthesia Preop Results Results Anesthesia Widget: WBC 8.31 K/uL (4.8-10.8) 06/27/21 Hgb 12.8 g/dL (12.0-16.0) 06/27/21 Hct 40.5 % (37-47) 06/27/21 Plt 313 K/uL (130-400) 06/27/21 Na 138 mmol/L (136-145) 06/27/21 K 5.2 mmol/L (3.5-5.1) H 06/27/21 Cl 105 mmol/L (98-107) 06/27/21 CO2 30 mmol/L (21-32) 06/27/21 BUN 22 mg/dl (6-23) 06/27/21 Creat 0.98 mg/dl (0.6-1.2) 06/27/21 Glucose Level 121 mg/dl (70-99(Fasting)) H 06/27/21 PT 10.1 Seconds (9.0-12.0) 06/27/21 PTT 31.0 Seconds (21.0-31.0) 06/27/21 INR 1.0 (0.9-1.1) 06/27/21 HA1c 6.5 % (4.5-5.6) H 05/09/21 Urine Color Yellow 06/27/21 Urine Appearance Clear (Clear) 06/27/21 Urine pH 5.0 (4.5-7.5) 06/27/21 Urine Specific [place] 1.011 (1.000-1.030) 06/27/21 Urine Protein Negative (Negative) 06/27/21 Urine Glucose (UA) Negative (Negative) 06/27/21 Urine Ketones Negative (Negative) 06/27/21 Urine Blood Negative (Negative) 06/27/21 Urine Nitrite Negative (Negative) 06/27/21 Urine Bilirubin Negative (Negative) 06/27/21 Urine Urobilinogen Negative (Negative) 06/27/21 Urine Leukocyte Esterase Negative (Negative) 06/27/21 Blood Type A Negative 06/27/21 Antibody Screen NEGATIVE 06/27/21 Testing Electrocardiogram Date: 06/10/21 Atrial-paced rhythm, rate 74 bpm Poor R wave progression No significant change when compared with ECG of 09/06/2020 Chest X-Ray Date: 06/27/21 FINDINGS: Stable appearance of dual-lead pacemaker. The cardiomediastinal silhouette is normal. The lungs are clear. No evidence of pleural effusion or pneumothorax. IMPRESSION: No acute chest disease. Echocardiogram Date: 06/10/21 EF 62% Normal left ventricular wall motion and thickness Grade I diastolic dysfunction No significant valvular pathology Other Testing Pacemaker test report 06/13/[address] MRI [id number] Mode: AAIR<>DDDR Pacing: AP 97.8%, CHANNELING MACHINE RUNNER <0.1% No pace terminated episodes
[~2021-08-14 06:10] MED LIST changes: +ACETAMINOPHEN 500 MG TAB PO SCH; -AMIO200T4 PO; +CeleBREX 200 MG CAP PO SCH; -FRS/40 PO; +GABAPENTIN 300 MG CAP PO SCH; -GLC/500 PO; +LR 15ML/HR IV SCH; -MOMLX PO; -NAPR1TAB9 PO; -POTA-639 PO; -SENN15TA PO; -TPRSR/50 PO; -VNTHFA/IN INH; -WARF1TAB6 PO; +ceFAZolin 2000MG 2,000 MG/15 ML SYR IV SCH
[2021-08-14] MEDS ORDERED: fentaNYL citrate 100 MCG/2 ML VIAL ONE (06:33)
[2021-08-14] MEDS ORDERED: ROCURONIUM BROMIDE 10 MG/ML 5 ML VIAL IV ONE (06:33)
[2021-08-14] MEDS ORDERED: PROPOFOL IV EMULSION 10 MG/ML 20 ML VIAL IV ONE (06:33)
[2021-08-14] MEDS ORDERED: LIDOCAINE 2% 2 ML VIAL/AMP(20MG/ML) INFIL ONE (06:33)
[2021-08-14] MEDS ORDERED: KETAMINE 50 MG/5 ML SYRINGE ONE (06:33)
[2021-08-14] MEDS ORDERED: ONDANSETRON INJ 2 MG/ML 2 ML VIAL ONE (06:33)
[2021-08-14] MEDS ORDERED: DEXAMETHASONE SOD INJ 4 MG/ML VIAL ONE (06:33)
[2021-08-14] MEDS ORDERED: LARYING-O-JET KIT (LTA) ONE (06:39)
[2021-08-14] MEDS ORDERED: ONDANSETRON INJ 2 MG/ML 2 ML VIAL IV PRN ×2 (07:14→11:17)
[2021-08-14] MEDS ORDERED: ePHEDrine sulfate 50 MG/ML AMP IV PRN (07:14)
[2021-08-14] MEDS ORDERED: HYDROmorphone INJ 2 MG/ML SYR/VIAL IV PRN (07:14)
[2021-08-14] MEDS ORDERED: ATROPINE SULFATE 0.1 MG/ML 10ML SYR IV PRN (07:14)
[2021-08-14] MEDS ORDERED: BUPIVACAINE 0.5 % 5 MG/1 ML MPF 30ML VIAL ONE (07:18)
[2021-08-14] MEDS ORDERED: EPINEPHrine INJ 1 MG/ML AMP ONE (07:18)
[2021-08-14] MEDS ORDERED: ceFAZolin 330 MG/ML 1 GM VIAL ONE (07:19)
--- NOTE | 2021-08-14 07:36 | History & Physical Bridge Note ---
Date of Service August 14, 2021 History & Physical Bridge Note I have examined the patient, reviewed the History & Physical and in the interval since the performance of the History & Physical I have noted the following changes of clinical significance: no changes noted
--- NOTE | 2021-08-14 07:37 | History & Physical Report ---
Date of Service August 14, 2021 Assessment & Plan (1) Lumbar spinal stenosis: Plan: L4-5 revision decompression and fusion History of Present Illness Chief Complaint: Back and leg pain Primary Care Provider: Anu Parker PA-C This is a 76-year-old female who presents with chronic persistent back and leg pain. Failing course of nonoperative care is here for surgical invention. Allergies Allergy/AdvReac Type Severity Reaction Status Date / Time hydrocodone Allergy Severe BIG MENTAL Verified 08/14/21 06:50 STATUS CHANGES morphine AdvReac Intermediate BIG MENTAL Verified 08/14/21 06:50 STATUS CHANGES oxycodone AdvReac Intermediate Confusion Verified 08/14/21 06:50 rosuvastatin [From Crestor] AdvReac Intermediate Muscle Verified 08/14/21 06:50 cramping ciprofloxacin AdvReac Unknown N/V Verified 08/14/21 06:50 hydromorphone [From Dilaudid] AdvReac Unknown Nausea Verified 08/14/21 06:50 metronidazole AdvReac Unknown N/V Verified 08/14/21 06:50 Home Medications Medication Instructions Recorded Confirmed Type ferrous sulfate 325 mg (65 mg 325 mg PO TID #270 tab 01/23/19 08/14/21 Rx iron) tablet cyanocobalamin (vitamin B-12) 1,000 mcg SL QAM 04/15/20 08/14/21 History 1,000 mcg sublingual tablet docusate sodium 100 mg capsule 100 mg PO DAILY PRN 04/15/20 08/14/21 History (Colace) acetaminophen 500 mg capsule 1,000 mg PO UD PRN 08/06/20 08/14/21 History albuterol sulfate 90 mcg/actuation 2 puff INH Q4H PRN #18 gm 08/09/20 08/14/21 Rx aerosol inhaler (ProAir HFA) alendronate 70 mg tablet (Fosamax) 70 mg PO WK #12 tab 12/25/20 08/14/21 Rx apixaban 5 mg tablet (Eliquis) 5 mg PO BID tab 05/09/21 08/14/21 History metoprolol succinate 100 mg 150 mg PO QAM #90 tab 06/18/21 08/14/21 Rx tablet,extended release 24 hr metformin 500 mg tablet,extended 500 mg PO QAM #90 tab 06/30/21 08/14/21 Rx release 24 hr ezetimibe 10 mg tablet (Zetia) 10 mg PO QPM #90 tab 08/11/21 08/14/21 Rx furosemide 20 mg tablet 20 mg PO DAILY PRN #30 tab 08/11/21 08/14/21 Rx Past Med/Surg History Medical History (Updated 07/28/21 @ 08:26 by Brittany Yoder PA-C) Asthma, acute controlled per pt, last rescue inhaler use > 6 months Back pain Carotid artery stenosis Per neck CTA on 10/08/19- Moderate plaque within the proximal bilateral internal carotid arteries with 50% stenosis at the origins of the bilateral internal carotid arteries. PCP monitors CKD (chronic kidney disease) CVA (cerebral vascular accident) 05/19/19 > [facility]> PT REPORTS HAD SOME LEFT SIDED WEAKNESS -IMPROVED Diabetes Hgb A1C= 6.5 04/2021 GERD (gastroesophageal reflux disease) controlled, stable per pt History of recent hospitalization 05/2021 [facility] - d/c approx 1 week ago. Admitted with pneumonia and syncope. syncope felt to be vasovagal. Covid negative. Pt denies residual symptoms. f/u with PCP 06/18/2021: abx completion-CXR report did not state PNA, plan to obtain f/u CXR in 4 weeks Hyperlipidemia Hypertension controlled, stable per pt Morbid obesity with BMI of 40.0-44.9, adult Osteoporosis Paroxysmal atrial fibrillation with RVR PACEMAKER> ELIQUIS > FOLLOWS DR. ANDERSON > NO CARDIOVERSIONS DX 2014 Presence of permanent cardiac pacemaker Implant November 16, 2019. Dual chamber pacemaker. Medtronic generator W1D R 01. Implant performed by Dr. Judah Robert> Implanted secondary to SSS MOST RECENT CHECK 05/2021 Situational anxiety Surgical History H/O colectomy X2- SECONDARY TO DIVERICULITITS HAD TEMPORARY ILIEOSTOMY- SINCE REVERSED History of appendectomy History of carpal tunnel release RIGHT History of cataract surgery BILATERAL History of cholecystectomy History of colonoscopy History of esophagogastroduodenoscopy (EGD) History of hysterectomy History of lumbar surgery L4-L5 laminectomy 08/30/2020 [facility]: Grade 1 view, MAC#3, ETT#7.5, atraumatic x 1. No issues per anesthesia postop progress note. History of meniscectomy of right knee 05/13/2020: LMA#4, atraumatic x 1. No issues per anesthesia postop progress note. History of pacemaker History of tonsillectomy History of wisdom tooth extraction Hx of ileostomy SINCE REVERSED Family History Mother Myocardial infarction Family history of diabetes mellitus Father Myocardial infarction Family history of diabetes mellitus Other Cancer Heart disease Stroke Denies family history of Ovarian cancer Prostate cancer Breast cancer Colorectal cancer Social History Smoking Status: Never smoker Tobacco Type: Cigarettes Age Started Using Tobacco: 20; Age Quit Using Tobacco: 72; packs per day: 0.5; Smoking End Date: 2017; Second Hand Exposure: Yes; Do You Dip or Chew Tobacco: No; Tobacco Cessation Education Requested by Patient: No Hx Alcohol Use: No Hx Substance Use: No Preferred Language: Citizen Of [place] Communication Ability: Effective Visual Impairment: Partially Limited Hearing Ability: Use of Hearing Aid Port Patrol Officer Required: No Beliefs That Will Affect Care: None marital status: Current Living Situation: Spouse current occupational status: retired How many Children do You have: 2 Feels Safe at Home: Yes Safety Concerns: Feels Safe At This Time Childhood Exposure to Second-Hand Smoke: Yes (father) caffeine: No (decaf tea/coffee) Dental Care, Regularly: No Physical Activity Frequency: Does not Exercise Seatbelt Use: always Sunscreen Use: Yes Do you think of yourself as: straight/heterosexual Assistive Devices: None Physical Exam Physical Exam: Patient is alert and oriented Heart regular rate and rhythm Lungs clear Results & Data ([place]) Vital Signs (Past 12 Hours) Vital Signs Temp Pulse Resp BP BP Pulse Ox 08/14/21 06:45 36.6 C 113 H 20 160/91 H 177/124 H 95
[2021-08-14] MEDS ORDERED: METOPROLOL TARTRATE 1 MG/ML VIAL IV ONE (08:12)
[2021-08-14] MEDS ORDERED: FLOSEAL HEMOSTATIC MATRIX 10ML TOP ONE (09:22)
--- NOTE | 2021-08-14 09:34 | Operative Report ---
Post Operative Report Pre & Post Diagnosis Operation Date: 08/14/21 07:45 Pre-Op Diagnosis: Spinal Stenosis of Lumbar Region with Radiculopathy Post-Op Diagnosis: Spinal Stenosis of Lumbar Region with Radiculopathy I identified the patient and participated in the time-out.: Yes Procedure Operation Date: 08/14/21 07:45 Actual Procedures #1 revision decompression with bilateral medial facetectomies foraminotomies L3- L4 L4-5. #2 posterior spinal fusion L4-5. #3 placement posterior instrumentation L4-5. #4 interbody fusion L4-5. #5 placement of titanium 12 x 22 mm cage at L4-5. #6 placement locally harvested morselized autograft in the posterior gutters. #7 placement of I factor interbody space and infuse collagen sponge, and master graft in the posterior gutters. Surgeon Rios Cuadra, Welding Pantograph Operator Desirae Flores Estimated Blood Loss 50 Findings See Below Patient is 5 foot tall weighing over 94 kg with a BMI in excess of 40. Patient's body habitus did contribute to significant technical difficulty requiring her deepest retractors longus instruments in order to perform her procedure. This at least 50% increased operative time. Specimens None Indications This is a 76-year-old female who presents with above-mentioned diagnosis after failing course of nonoperative care she is here for surgical invention. Description of Procedure Patient was met with identified informed consent obtained. Patient was then taken to the operative suite underwent a patient placed in a prone position the [place] table top Jorge frame. All bony prominences well-padded eyes inspected to ensure no external pressure placed upon them. This point the lumbar spine was prepped and draped in normal sterile fashion. Sharp dissection with the assistance of Bovie cautery was performed down to and exposing the remaining lamina and transverse processes of L4-L5. I then performed a revision complete laminectomy of L4 partial laminectomy of L3 including bilateral medial facetectomies and foraminotomies addressing all neural compression. Pedicle screws were then placed in L4-L5 bilaterally with assistance of fluoroscopy and appropriate sized sunni placed. By way of a transforaminal approach on the right a complete discectomy of L4-5 was performed endplates curetted to subcortical any bone and a 12 x 22 mm titanium cage filled I factor tapped in position. Rods were then compressed locked in final position bilaterally. The transverse processes of L4 and L5 burred to subcortical being bone. Infuse collagen sponge master graft lobe autograft was placed in the posterior gutters. 15 round FELIPE drain inserted. The incision was then closed with 1 Vicryl the fascia 2-0 Vicryl subcutaneously and 4 Monocryl for final skin closure. Steri-Strips dressings placed. Patient waken taken PACU stable condition. Please note spinal cord monitoring was utilized at the procedure no changes noted. Lastly Desirae Flores was present at the entire surgery and while the patient positioning complex portions of the surgery and final skin closure. I attest to the content of the Intraoperative Record and any orders documented therein. Any exceptions are noted below.
[2021-08-14] MEDS ORDERED: GLYCOPYRROLATE 0.2 MG/ML VIAL ONE (09:56)
[2021-08-14] MEDS ORDERED: NEOSTIGMINE METHYLSULFATE 1 MG/ML 10ML VIAL ONE (09:56)
--- NOTE | 2021-08-14 09:58 | Fluoroscopy Report ---
INTRAOPERATIVE RADIOGRAPHS CLINICAL HISTORY: L4-L5 spinal fusion. Fluoroscopy time: 18 seconds. FINDINGS: 2 spot fluoroscopic views of the lumbar spine are presented. There has been discectomy at L 4-L5 with laminectomy and posterior fusion at this level. The orthopedic hardware appears intact. IMPRESSION: Intraoperative images from L4-L5 spinal fusion as above. Electronically signed by: Anthony Cabrera M.D. 08/14/2021 9:57 AM
[2021-08-14] MEDS: fentaNYL citrate 100 MCG/2 ML VIAL IV PRN ×2 (10:10→10:25)
--- NOTE | 2021-08-14 10:34 | Anesthesiology Progress Note ---
Date of Service August 14, 2021 Anesthesia Post Procedure Vital Signs Vital Signs: Temp Pulse Resp BP BP Pulse Ox 08/14/21 10:25 36.4 C L 62 17 119/56 L 98 08/14/21 10:15 60 16 113/57 L 98 08/14/21 10:05 60 15 136/63 100 08/14/21 09:55 60 15 182/78 H 99 08/14/21 09:48 36.3 C L 62 14 87/49 L 99 08/14/21 06:45 36.6 C 113 H 20 160/91 H 177/124 H 95 Pain Intensity Lower Back: Pain Intensity: 4 Transfer of Care Handoff Completed per policy Notes Mental Status: alert / awake / arousable and participated in evaluation Patient Amnestic to Procedure: Yes Nausea / Vomiting: adequately controlled Pain: adequately controlled Airway Patency, RR, SpO2: stable & adequate BP & HR: stable & adequate Hydration State: stable & adequate Anesthetic Complications: no major complications apparent and Pt Satisfied with anesthetic care
[2021-08-14] MEDS: SODIUM CHLORIDE 0.9% 1000ML 1,000 ML IV SCH ×2 (11:00→21:03)
[2021-08-14] MEDS ORDERED: NALOXONE HCL 0.4 MG/1 ML VIAL/CARP IV PRN (11:17)
[2021-08-14] MEDS ORDERED: PHARMACY GLYCEMIC MGMT CONSULT PRN (11:17)
[2021-08-14] MEDS ORDERED: METOCLOPRAMIDE HCL INJ 5 MG/ML 2 ML VIAL IV PRN (11:17)
[2021-08-14] MEDS ORDERED: PROMETHAZINE HCL 12.5 MG in SODIUM CHLORIDE 0.9% 50 ML IV PRN (11:17)
[2021-08-14] MEDS ORDERED: FUROSEMIDE 20 MG TAB PO PRN (11:17)
[2021-08-14] MEDS ORDERED: MAGNESIUM HYDROXIDE SUSP 30 ML UDC PO PRN (11:17)
[2021-08-14] MEDS ORDERED: ONDANSETRON 4 MG OD TAB PO PRN (11:17)
[2021-08-14] MEDS ORDERED: diphenhydrAMINE Capsule 25 MG CAP PO PRN (11:17)
[2021-08-14] MEDS ORDERED: DO NOT ADMINISTER FLU VACCINE PRN (11:17)
[2021-08-14] MEDS ORDERED: bisacodyL 10 MG SUPP PR PRN (11:17)
[2021-08-14] MEDS ORDERED: DO NOT ADMINISTER PNEUMOCOCCAL VACCINE PRN (11:17)
[2021-08-14] MEDS ORDERED: FAMOTIDINE 20 MG TAB PO PRN (11:17)
[2021-08-14] MEDS ORDERED: LORazepam 2 MG/1 ML VIAL IV PRN (11:17)
[2021-08-14] MEDS ORDERED: ALUMINUM/MAGNESIUM SUSP 30 ML UDC PO PRN (11:17)
[2021-08-14] MEDS ORDERED: LORazepam 0.5 MG TAB PO PRN (11:17)
[2021-08-14] MEDS ORDERED: ACETAMINOPHEN 1,000 MG/100 ML VIAL IV PRN (11:17)
[2021-08-14] MEDS ORDERED: SOD PHOSPHATE/SOD BIPHOSPHATE ENEMA 132 ML BTL PR PRN (11:17)
[2021-08-14] MEDS ORDERED: hydrOXYzine HCl 25 MG TAB PO PRN (11:17)
[2021-08-14] MEDS ORDERED: ALBUTEROL HFA 8 GM INHALER INH PRN (11:37)
[2021-08-14] MEDS ORDERED: INSULIN GLARGINE SOLOSTAR 100 UNITS/ML 3 ML PEN SC ONE (12:00)
[2021-08-14] MEDS ORDERED: CARBOHYDRATES FOR HYPOGLYCEMIA PO PRN (12:01)
[2021-08-14] MEDS ORDERED: DEXTROSE 50% 50 ML SYRINGE IV PRN (12:01)
[2021-08-14] MEDS ORDERED: GLUCOSE 10 TABS/TUBE PO PRN (12:01)
[2021-08-14] MEDS ORDERED: GLUCOSE 40% GEL 15 GM TUBE PO PRN (12:01)
[2021-08-14] MEDS ORDERED: GLUCAGON FOR INJ 1 MG VIAL SQ PRN (12:01)
--- NOTE | 2021-08-14 12:13 | Hospitalist Consultation ---
Date of Consultation August 14, 2021 Assessment & Plan (1) Lumbar spinal stenosis: Pain and postop management per primary orthopedic team CBC and BMP with a.m. labs (2) Paroxysmal atrial fibrillation: Continue rate controlling medications with metoprolol succinate 150 mg p.o. daily Anticoagulation to restart per primary orthopedic team recommendations (3) Diabetes: Type 2 diabetes Hold Metformin Pharmacy consulted for glycemic control in setting of dexamethasone use (4) Hyperlipidemia: Intolerant to statins Continue ezetimibe 10 mg p.o. daily (5) Hypertension: Continue metoprolol succinate as above VTE prophylaxis -per primary orthopedic team Diet - T2DM, advance per orthopedics Disposition - will review patient in AM however medical issues appear to be stable and can likely sign off at that time. History of Present Illness Reason for Consultation: Medical Management Requesting Physician: Dr Cuadra Attending Physician: Rios Cuadra, DO History of Present Illness Migdalia Elkins is a 76-year-old female who presents for elective back surgery with posterior spinal fusion for lumbar spinal stenosis with Dr. Cuadra performed today (August 14, 2021). She reports doing well post operatively although her symptoms prior to surgery were mostly on standing therefore unknown if these have improved. No questions or concerns at this time. She has a significant history of: Type 2 diabetes with HbA1c 6.5 in April 2021. For that she takes Metformin 500 mg extended release p.o. daily Paroxysmal atrial fibrillation. She is on anticoagulation with Eliquis 5 mg p.o. twice daily which is currently on hold for her operation. She is on rate controlling medication with metoprolol succinate 150 mg p.o. daily, pacemaker previously inserted for tachybrady syndrome.. Osteoporosis -uses alendronate 70 mg p.o. weekly B12 deficiency -1000 mcg sublingual daily History of stroke - she reports no residual effects from this. Allergies Allergy/AdvReac Type Severity Reaction Status Date / Time hydrocodone Allergy Severe BIG MENTAL Verified 08/14/21 06:50 STATUS CHANGES morphine AdvReac Intermediate BIG MENTAL Verified 08/14/21 06:50 STATUS CHANGES oxycodone AdvReac Intermediate Confusion Verified 08/14/21 06:50 rosuvastatin [From Crestor] AdvReac Intermediate Muscle Verified 08/14/21 06:50 cramping ciprofloxacin AdvReac Unknown N/V Verified 08/14/21 06:50 hydromorphone [From Dilaudid] AdvReac Unknown Nausea Verified 08/14/21 06:50 metronidazole AdvReac Unknown N/V Verified 08/14/21 06:50 Home Medications Medication Instructions Recorded Confirmed Type ferrous sulfate 325 mg (65 mg 325 mg PO TID #270 tab 01/23/19 08/14/21 Rx iron) tablet cyanocobalamin (vitamin B-12) 1,000 mcg SL QAM 04/15/20 08/14/21 History 1,000 mcg sublingual tablet docusate sodium 100 mg capsule 100 mg PO DAILY PRN 04/15/20 08/14/21 History (Colace) acetaminophen 500 mg capsule 1,000 mg PO UD PRN 08/06/20 08/14/21 History albuterol sulfate 90 mcg/actuation 2 puff INH Q4H PRN #18 gm 08/09/20 08/14/21 Rx aerosol inhaler (ProAir HFA) alendronate 70 mg tablet (Fosamax) 70 mg PO WK #12 tab 12/25/20 08/14/21 Rx apixaban 5 mg tablet (Eliquis) 5 mg PO BID tab 05/09/21 08/14/21 History metoprolol succinate 100 mg 150 mg PO QAM #90 tab 06/18/21 08/14/21 Rx tablet,extended release 24 hr metformin 500 mg tablet,extended 500 mg PO QAM #90 tab 06/30/21 08/14/21 Rx release 24 hr ezetimibe 10 mg tablet (Zetia) 10 mg PO QPM #90 tab 08/11/21 08/14/21 Rx furosemide 20 mg tablet 20 mg PO DAILY PRN #30 tab 08/11/21 08/14/21 Rx Patient History Medical History (Updated 07/28/21 @ 08:26 by Brittany Yoder PA-C) Asthma, acute controlled per pt, last rescue inhaler use > 6 months Back pain Carotid artery stenosis Per neck CTA on 10/08/19- Moderate plaque within the proximal bilateral internal carotid arteries with 50% stenosis at the origins of the bilateral internal carotid arteries. PCP monitors CKD (chronic kidney disease) CVA (cerebral vascular accident) 05/19/19 > [facility] PT REPORTS HAD SOME LEFT SIDED WEAKNESS -IMPROVED Diabetes Hgb A1C= 6.5 04/2021 GERD (gastroesophageal reflux disease) controlled, stable per pt History of recent hospitalization 05/2021 [facility] - d/c approx 1 week ago. Admitted with pneumonia and syncope. syncope felt to be vasovagal. Covid negative. Pt denies residual symptoms. f/u with PCP 06/18/2021: abx completion-CXR report did not state PNA, plan to obtain f/u CXR in 4 weeks Hyperlipidemia Hypertension controlled, stable per pt Morbid obesity with BMI of 40.0-44.9, adult Osteoporosis Paroxysmal atrial fibrillation with RVR PACEMAKER> ELIQUIS > FOLLOWS DR. ANDERSON > NO CARDIOVERSIONS DX 2014 Presence of permanent cardiac pacemaker Implant November 16, 2019. Dual chamber pacemaker. Medtronic generator W1D R 01. Implant performed by Dr. Judah Robert> Implanted secondary to SSS MOST RECENT CHECK 05/2021 Situational anxiety Surgical History H/O colectomy X2- SECONDARY TO DIVERICULITITS HAD TEMPORARY ILIEOSTOMY- SINCE REVERSED History of appendectomy History of carpal tunnel release RIGHT History of cataract surgery BILATERAL History of cholecystectomy History of colonoscopy History of esophagogastroduodenoscopy (EGD) History of hysterectomy History of lumbar surgery L4-L5 laminectomy 08/30/2020 [facility]: Grade 1 view, MAC#3, ETT#7.5, atraumatic x 1. No issues per anesthesia postop progress note. History of meniscectomy of right knee 05/13/2020: LMA#4, atraumatic x 1. No issues per anesthesia postop progress note. History of pacemaker History of tonsillectomy History of wisdom tooth extraction Hx of ileostomy SINCE REVERSED Family History Mother Myocardial infarction Family history of diabetes mellitus Father Myocardial infarction Family history of diabetes mellitus Other Cancer Heart disease Stroke Denies family history of Ovarian cancer Prostate cancer Breast cancer Colorectal cancer Social History Smoking Status: Never smoker Tobacco Type: Cigarettes Age Started Using Tobacco: 20; Age Quit Using Tobacco: 72; packs per day: 0.5; Smoking End Date: 2017; Second Hand Exposure: Yes; Do You Dip or Chew Tobacco: No; Tobacco Cessation Education Requested by Patient: No Hx Alcohol Use: No Hx Substance Use: No Preferred Language: [place] Communication Ability: Effective Visual Impairment: Partially Limited Hearing Ability: Use of Hearing Aid Carpenter Labor Supervisor Required: No Beliefs That Will Affect Care: None marital status: Current Living Situation: Spouse current occupational status: retired How many Children do You have: 2 Feels Safe at Home: Yes Safety Concerns: Feels Safe At This Time Childhood Exposure to Second-Hand Smoke: Yes (father) caffeine: No (decaf tea/coffee) Dental Care, Regularly: No Physical Activity Frequency: Does not Exercise Seatbelt Use: always Sunscreen Use: Yes Do you think of yourself as: straight/heterosexual Assistive Devices: None Review of Systems Review of Systems: All systems reviewed & are unremarkable except as noted in HPI & below Physical Exam Constitutional: WD/WN, vitals as above Eyes: + anicteric sclerae; normal pupil size ENMT: external ear and nose normal, oropharynx normal Respiratory: normal respiratory effort, lungs clear to auscultation Cardiovascular: RRR, no murmur, no edema Extremities: normal capillary refill Gastrointestinal (Abdomen): Inspection/Auscultation: normal bowel sounds Percussion/Palpation: abdomen soft; abdomen nontender, no guarding and abdomen not rigid Musculoskeletal: no cyanosis or clubbing, extremities motor strength 5/5 Skin: no rashes, warm and dry Neurologic: moves all extremities and awake; not confused Psychiatric: A+Ox3, euthymic affect Results & Data Results & Data ([facility]) Vital Signs (Past 12 Hours) Vital Signs Temp Pulse Pulse Resp BP BP Pulse Ox 08/14/21 11:30 36.3 C L 60 16 151/81 H 95 08/14/21 11:00 36.4 C L 64 18 142/72 H 98 08/14/21 10:45 36.4 C L 60 19 115/73 95 08/14/21 10:35 36.4 C L 60 16 127/59 L 98 08/14/21 10:25 36.4 C L 62 17 119/56 L 98 08/14/21 10:15 60 16 113/57 L 98 08/14/21 10:05 60 15 136/63 100 08/14/21 09:55 60 15 182/78 H 99 08/14/21 09:48 36.3 C L 62 14 87/49 L 99 08/14/21 06:45 36.6 C 113 H 20 160/91 H 177/124 H 95 PG Care Time/CCT Total # of Minutes Spent Total Time Spent with Patient: Total time spent is greater than 50% in coordination of care (as documented) at patient's floor/unit and/or counseling patient: Coding Level of Care Code 37850 Inpt Consult Level 3 Diagnoses Paroxysmal atrial fibrillation I48.0 Diabetes E11.9 Lumbar spinal stenosis M48.061 Hyperlipidemia E78.5 Hypertension I10
[2021-08-14] MEDS: INSULIN ASPART PER UNIT SC SCH ×3 (13:00→20:57)
[2021-08-14] MEDS: FERROUS SULFATE 325 MG TAB PO SCH ×2 (13:01→20:03)
--- NOTE | 2021-08-14 13:16 | Pharmacy Report ---
Pharmacy Glycemic Short Note 2 - Date of Service August 14, 2021 - Glycemic Short BSG Results (Last 24 hours): 08/14/21 08/14/21 08/14/21 06:35 09:52 12:15 POC Glucose 136 H 157 H 182 H OUTPATIENT ANTIDIABETIC REGIMEN: * Metformin 500mg PO QAM * A1c 6.5% 05/09/21 ASSESSMENT: * 76 year old female s/p lumbar fusion surgery by Dr Cuadra. Type 2 DM, controlled on metformin as outpatient, received 8mg IV Dexamethasone intraop, scheduled for 6mg IV Daily starting tomorrow. * Lantus + NovoLog for basal bolus insulin and to prevent steroid induced hyperglycemia. PLAN FOR INPATIENT GLYCEMIC CONTROL: * Hold outpatient oral diabetes medications * Basal insulin * Lantus 25 units SQ now, then 20 units HS for BSG > 180mg/dl * Bolus insulin * NovoLog per scale ACHS or Q6hrs while NPO * Goal Range: Low 110 mg/dL - High 140 mg/dL * Correction Factor: 15 mg/dL/unit * Nutritional / Prandial insulin per carb ratio of 1 unit per 6 grams CHO consumed
[2021-08-14] MEDS: traMADol HCL 50 MG TABLET PO PRN ×2 (14:42→20:03)
[2021-08-14] MEDS: ceFAZolin 2000MG 2,000 MG/15 ML SYR IV SCH ×2 (16:02→23:23)
[2021-08-14] MEDS ORDERED: INSULIN ASPART PER UNIT SC SCH (16:30)
[2021-08-14] MEDS: EZETIMIBE 10 MG TABLET PO SCH (20:03)
[2021-08-14] MEDS: DOCUSATE SODIUM/SENNA 50/8.6MG TAB PO SCH (20:03)
[2021-08-14] MEDS: INSULIN GLARGINE SOLOSTAR 100 UNITS/ML 3 ML PEN SC SCH (20:57)
[2021-08-15] MEDS: traMADol HCL 50 MG TABLET PO PRN ×3 (05:57→20:31)
[2021-08-15] MEDS: POLYETHYLENE (MIRALAX) 17 GM PACK PO SCH ×4 (05:57→20:32)
[2021-08-15 06:17] LABS: Basophils # (auto) 0.01 K/uL (0-0.2); Basophils % (auto) 0.1 %; Hematocrit (blood only) 34.2 % (37-47); Hemoglobin 11.2 g/dL (12.0-16.0); Immature Granulocytes # (auto) 0.05 K/uL (0.00-0.02); Immature Granulocytes % (auto) 0.4 %; Lymphocytes # (auto) 1.32 K/uL (1.2-3.4); Lymphocytes % (auto) 9.3 %; Mean Corpuscular Hemoglobin 30.6 pg (25-34); Mean Corpuscular Hgb Conc 32.7 g/dL (32-36); Mean Corpuscular Volume 93.4 fL (80-100); Mean Platelet Volume 9.9 fL (7.4-10.4); Neutrophils # (auto) 11.89 K/uL (1.4-6.5); Neutrophils % (auto) 83.2 %; Platelet Count 261 K/uL (130-400); RDW Coefficient of Variation 12.6 % (11.5-14.5); RDW Standard Deviation 43.3 fL (36.4-46.3); Red Blood Count 3.66 M/uL (4.2-5.4); White Blood Count 14.27 K/uL (4.8-10.8)
[2021-08-15 06:35] LABS: BUN Creatinine Ratio 17.6 (10-20); Calcium 8.4 mg/dl (8.5-10.1); Creatinine Clr Calc Pharmacy 59.8 ml/min; Est GFR (African American) 78.2 ml/min; Est GFR (Non-African American) 67.5 ml/min; Potassium 4.4 mmol/L (3.5-5.1)
--- NOTE | 2021-08-15 08:45 | Orthopedic Progress Note ---
Date of Service August 15, 2021 Assessment & Plan (1) Lumbar spinal stenosis: Plan: Patient is stable postop day 1. Have encouraged her to ambulate with therapy today. Continue with GI DVT prophylaxis. We will see how she does over the weekend and hopefully get her home on Wednesday. Admission and Anticipated Discharge Date Admission Date: August 14, 2021 Subjective Patient was seen bedside in room 310. She is doing well at this point. Her pain is well controlled. Her radicular complaints have subsided. She has some soreness in the back itself. She is tolerating p.o. She denies any other numbness, tingling, paresthesias. Physical Exam Physical Exam: On exam she appears to be comfortable. She is alert and oriented. Her abdomen soft nontender calves are supple nontender. Her FELIPE drain is in place and holding suction. She has had 40 cc out on this shift and 30 cc on the previous. Her strength and sensation are grossly intact. Results & Data ([facility]) Vital Signs (Past 12 Hours) Vital Signs Temp Pulse Pulse Resp BP Pulse Ox 08/15/21 07:20 36.8 C 61 13 144/86 H 97 08/14/21 22:02 36.4 C L 60 18 154/85 H 96
[2021-08-15] MEDS ORDERED: INSULIN GLARGINE SOLOSTAR 100 UNITS/ML 3 ML PEN SC SCH ×2 (09:00)
[2021-08-15] MEDS: METOPROLOL SUCC 50MG EXT REL TAB PO SCH (09:08)
[2021-08-15] MEDS: INSULIN ASPART PER UNIT SC SCH ×4 (09:08→20:39)
[2021-08-15] MEDS: dexAMETHasone 6 MG in SYRINGE 0 ML IV SCH (09:09)
[2021-08-15] MEDS: FERROUS SULFATE 325 MG TAB PO SCH ×3 (09:09→20:31)
[2021-08-15] MEDS: CYANOCOBALAMIN (B-12) 500 MCG TABLET PO SCH (09:09)
--- NOTE | 2021-08-15 10:41 | Pharmacy Report ---
Pharmacy Glycemic Short Note 2 - Date of Service August 15, 2021 - Glycemic Short BSG Results (Last 24 hours): 08/14/21 08/14/21 08/14/21 12:15 17:06 20:34 Glucose POC Glucose 182 H 180 H 185 H 08/15/21 08/15/21 05:51 07:59 Glucose 121 H POC Glucose 106 H OUTPATIENT ANTIDIABETIC REGIMEN: * Metformin 500mg PO QAM * A1c 6.5% 05/09/21 ASSESSMENT: 08/15 * Patient received total of 62 units of insulin yesterday, of which 45 units were basal insulin * Fasting BSG 106 mg/dL - patient to receive continued dexamethasone 6 mg daily. Will give additional Lantus this AM to help cover steroids (0.2 units/kg dose). Will add scale for HS for basal if BSGs remain elevated 08/14 * 76 year old female s/p lumbar fusion surgery by Dr Cuadra. Type 2 DM, controlled on metformin as outpatient, received 8mg IV Dexamethasone intraop, scheduled for 6mg IV Daily starting tomorrow. * Lantus + NovoLog for basal bolus insulin and to prevent steroid induced hyperglycemia. PLAN FOR INPATIENT GLYCEMIC CONTROL: * Hold outpatient oral diabetes medications * Basal insulin * Lantus 15 units SQ now, then 10 units HS for BSG > 180mg/dl * Bolus insulin * NovoLog per scale ACHS or Q6hrs while NPO * Goal Range: Low 110 mg/dL - High 140 mg/dL * Correction Factor: 15 mg/dL/unit * Nutritional / Prandial insulin per carb ratio of 1 unit per 6 grams CHO consumed
--- NOTE | 2021-08-15 13:00 | Hospitalist Progress Note ---
Date of Service August 15, 2021 Assessment & Plan (1) Lumbar spinal stenosis: Plan: Pain and postop management per primary orthopedic team Post operative labs reviewed and unremarkable (2) Paroxysmal atrial fibrillation: Plan: Continue rate controlling medications with metoprolol succinate 150 mg p.o. daily Anticoagulation to restart per primary orthopedic team recommendations (3) Diabetes: Plan: Type 2 diabetes Hold Metformin Pharmacy consulted for glycemic control in setting of dexamethasone use - can restart outpatient medications on discharge (4) Hyperlipidemia: Plan: Intolerant to statins Continue ezetimibe 10 mg p.o. daily (5) Hypertension: Plan: Continue metoprolol succinate as above Plan: VTE prophylaxis -per primary orthopedic team Diet - T2DM, advance per orthopedics Disposition - no further medical input required this admission. Thank you for the consult we will sign off at this time. Please contact the medical physician national account manager for ongoing advice as needed. Admission and Anticipated Discharge Date Admission Date: August 14, 2021 Subjective No questions or concerns. She reports radiating pain down her legs while walking has improved since her operation. No chest pain or shortness of breath. Review of Systems Review of Systems: All systems reviewed & are unremarkable except as noted in Subjective Physical Exam Constitutional: WD/WN, vitals as above Eyes: + anicteric sclerae; normal pupil size Respiratory: normal respiratory effort, lungs clear to auscultation Cardiovascular: RRR, no murmur, no edema Extremities: normal capillary refill Gastrointestinal (Abdomen): Inspection/Auscultation: normal bowel sounds Percussion/Palpation: abdomen soft; abdomen nontender, no guarding and abdomen not rigid Neurologic: moves all extremities and awake; not confused Psychiatric: A+Ox3, euthymic affect Results & Data Results & Data ([facility]) Vital Signs (Past 12 Hours) Vital Signs Temp Pulse Resp BP Pulse Ox 08/15/21 11:20 36.4 C L 60 15 134/78 96 08/15/21 07:20 36.8 C 61 13 144/86 H 97 PG Care Time/CCT Total # of Minutes Spent Total Time Spent with Patient: Total time spent is greater than 50% in coordination of care (as documented) at patient's floor/unit and/or counseling patient: Coding Level of Care Code 26223 Subseq Hosp Care Lvl 1 Diagnoses Lumbar spinal stenosis M48.061 Paroxysmal atrial fibrillation I48.0 Diabetes E11.9 Hyperlipidemia E78.5 Hypertension I10
[2021-08-15] MEDS: EZETIMIBE 10 MG TABLET PO SCH (20:31)
[2021-08-15] MEDS: DOCUSATE SODIUM/SENNA 50/8.6MG TAB PO SCH (20:31)
[2021-08-15] MEDS: INSULIN GLARGINE SOLOSTAR 100 UNITS/ML 3 ML PEN SC SCH (20:37)
[2021-08-16] MEDS: POLYETHYLENE (MIRALAX) 17 GM PACK PO SCH (06:22)
[2021-08-16] MEDS: ACETAMINOPHEN 500 MG TAB PO PRN ×2 (06:26→20:53)
[2021-08-16] MEDS: dexAMETHasone 6 MG in SYRINGE 0 ML IV SCH (07:56)
--- NOTE | 2021-08-16 08:38 | Orthopedic Progress Note ---
Date of Service August 16, 2021 Assessment & Plan (1) Status post spinal surgery: Plan: Patient will continue with physical therapy today. Maintain FELIPE drain. Continue with pain control. Continue with bowel regimen. DVT prophylaxis is in the form of teds and SCDs. Anticipate discharge home tomorrow Admission and Anticipated Discharge Date Admission Date: August 14, 2021 Subjective Patient is postoperative day 2 revision decompression instrumented fusion of L4- 5. She is doing great. Lower extremity symptoms greatly improved. Back pain is controlled. She is passing flatus but no bowel movement yet. FELIPE drain output last shift was 30 cc. Yesterday in physical therapy ambulating roughly 150 feet. Otherwise had an uneventful evening and no new complaints Review of Systems Review of Systems: All systems reviewed & are unremarkable except as noted in HPI & below Physical Exam Physical Exam: She sitting in a chair eating breakfast in no acute distress Alert and oriented x3 Lumbar dressing is clean dry and intact with functioning FELIPE drain calves soft nontender bilateral lower extremities Strength is intact bilateral lower extremity Results & Data ([facility]) Vital Signs (Past 12 Hours) Vital Signs Temp Pulse Resp BP Pulse Ox 08/16/21 07:51 36.8 C 70 16 160/70 H 96 08/15/21 23:09 36.8 C 63 16 144/82 H 96
[2021-08-16] MEDS: METOPROLOL SUCC 50MG EXT REL TAB PO SCH (09:05)
[2021-08-16] MEDS: INSULIN GLARGINE SOLOSTAR 100 UNITS/ML 3 ML PEN SC SCH (09:05)
[2021-08-16] MEDS: CYANOCOBALAMIN (B-12) 500 MCG TABLET PO SCH (09:05)
[2021-08-16] MEDS: FERROUS SULFATE 325 MG TAB PO SCH ×3 (09:05→20:53)
[2021-08-16] MEDS: INSULIN ASPART PER UNIT SC SCH ×4 (09:06→20:58)
--- NOTE | 2021-08-16 15:00 | Pharmacy Report ---
Pharmacy Glycemic Short Note 2 - Date of Service August 16, 2021 - Glycemic Short BSG Results (Last 24 hours): 08/15/21 08/15/21 08/16/21 17:11 20:33 08:05 POC Glucose 141 H 161 H 108 H OUTPATIENT ANTIDIABETIC REGIMEN: * Metformin 500mg PO QAM * A1c 6.5% 05/09/21 ASSESSMENT: 08/16: * Patient received total 46 units of insulin yesterday; 15 units basal and 31 units bolus. * BSGs yesterday were 040-936-122-161 mg/dl so well-controlled. * Fasting BSG was 108 mg/dl today, continued basal 15 units today AM. * Pre-Lunch BSG was not checked by mistake, therefore only carbs covered at lunch. Novolog parameters continued the same. 08/15 * Patient received total of 62 units of insulin yesterday, of which 45 units were basal insulin * Fasting BSG 106 mg/dL - patient to receive continued dexamethasone 6 mg daily. Will give additional Lantus this AM to help cover steroids (0.2 units/kg dose). Will add scale for HS for basal if BSGs remain elevated 08/14 * 76 year old female s/p lumbar fusion surgery by Dr Cuadra. Type 2 DM, controlled on metformin as outpatient, received 8mg IV Dexamethasone intraop, scheduled for 6mg IV Daily starting tomorrow. * Lantus + NovoLog for basal bolus insulin and to prevent steroid induced hyperglycemia. PLAN FOR INPATIENT GLYCEMIC CONTROL: * Hold outpatient oral diabetes medications * Basal insulin * Lantus 15 units SQ QAM * Bolus insulin * NovoLog per scale ACHS or Q6hrs while NPO * Goal Range: Low 110 mg/dL - High 140 mg/dL * Correction Factor: 15 mg/dL/unit * Nutritional / Prandial insulin per carb ratio of 1 unit per 6 grams CHO consumed
[2021-08-16] MEDS: DOCUSATE SODIUM/SENNA 50/8.6MG TAB PO SCH (20:53)
[2021-08-16] MEDS: EZETIMIBE 10 MG TABLET PO SCH (20:53)
[2021-08-17] MEDS: ACETAMINOPHEN 500 MG TAB PO PRN (07:27)
[2021-08-17] MEDS: dexAMETHasone 6 MG in SYRINGE 0 ML IV SCH (08:58)
[2021-08-17] MEDS: INSULIN GLARGINE SOLOSTAR 100 UNITS/ML 3 ML PEN SC SCH (08:58)
[2021-08-17] MEDS: FERROUS SULFATE 325 MG TAB PO SCH (08:58)
[2021-08-17] MEDS: CYANOCOBALAMIN (B-12) 500 MCG TABLET PO SCH (08:58)
[2021-08-17] MEDS: METOPROLOL SUCC 50MG EXT REL TAB PO SCH (08:58)
[2021-08-17] MEDS: INSULIN ASPART PER UNIT SC SCH (08:59)
--- NOTE | 2021-08-17 10:17 | Discharge Summary ---
Date of Service August 17, 2021 Principal Diagnosis Lumbar spinal stenosis with neurogenic claudication Discharge Data Allergies Allergy/AdvReac Type Severity Reaction Status Date / Time hydrocodone Allergy Severe BIG MENTAL Verified 08/14/21 06:50 STATUS CHANGES morphine AdvReac Intermediate BIG MENTAL Verified 08/14/21 06:50 STATUS CHANGES oxycodone AdvReac Intermediate Confusion Verified 08/14/21 06:50 rosuvastatin [From Crestor] AdvReac Intermediate Muscle Verified 08/14/21 06:50 cramping ciprofloxacin AdvReac Unknown N/V Verified 08/14/21 06:50 hydromorphone [From Dilaudid] AdvReac Unknown Nausea Verified 08/14/21 06:50 metronidazole AdvReac Unknown N/V Verified 08/14/21 06:50 Consultations 08/14/21 11:17 Consult Hospitalist Routine 08/14/21 11:29 Consult Hospitalist Routine Procedures Performed Operation Date: 08/14/21 07:45 Actual Procedures p L4-L5 Revision Decompression and Fusion, Spinal Cord Monitoring(Not Applicable) - Rios Cuadra DO Ordered Studies 08/14/21 07:45 FL lumbar spine 2-3V Routine Hospital Course (1) Lumbar spinal stenosis: Patient underwent lumbar decompression fusion tolerates well stable orthopedic for possibly. Postop day 1 she is up and ambulating progress postop day #2 on postop day 3 she had good strength testing pain well controlled. FELIPE drain decreased probably. Subsequent discharge home. Discharge instructions from the chart for further review. Total Time Total Time Spent Total Time Spent (In Minutes): 20 minutes Discharge Plan Discharge Items Patient Disposition: Home - Self-Care Reason For Visit: Spinal Stenosis of Lumbar Region with Radiculopath Discharge Diagnosis: Lumbar spinal stenosis with radiculopathy Activity: As commented below Non-emergency contact: Primary Care Provider Call non-emergency contact if: you have any medication questions Follow-up/Referrals: Anu Parker PA-C [Primary Care Provider] - Diet: Regular Addtl Attending Provider Instructions: ACTIVITY RECOMMENDATIONS: SELF CARE INSTRUCTIONS AFTER THORACIC/LUMBAR FUSIONS 1. You may walk to your tolerance. It is good exercise for your legs and back. Expect some back and intermittent leg aches and pains. 2. You may perform "counter-top" level activities (make a sandwich, lamine with a project, etc.). 3. No bending or lifting of more than 10 pounds or back twisting of any nature (roll like a log when turning in bed). 4. You may ride in a car for 20-30 minutes at a time. No driving until after your first visit with your doctor. 5. Frequent changes of position and restricting sitting to 30 minutes at a time will help limit the amount of back spasms and stiffness you may experience. 6. You may discontinue the use of ambulatory aids (cane, crutches, etc.) once your strength and confidence allow. 7. You may financial analysis advisor the shower and let water strike your incision when you arrive home at least once daily. Do not take a tub bath, sit in a hot tub or go into a swimming pool until after your first recheck in the office. SPECIAL CARE INSTRUCTIONS: VERY IMPORTANT TO READ AND REVIEW A. Your surgical incision has been closed with a cosmetic suture under the skin that will dissolve in about 6 weeks. In 14 days, you can use a pair of clean scissors and cut the suture that is left outside of the skin at the ends of your incision. 1. The small skin tapes can be removed 7 days after surgery if they have not fallen off by that point. 2. You may keep the wound open to air as much as possible to promote healing after post-op day number 5 unless told otherwise by your doctor. 3. If you think the wound looks like it is becoming infected (redness or worsening drainage) and/or you are experiencing fever, chill or worsening back pain and muscle spasms, contact the office so that we may evaluate you as soon as possible. B. Complications are uncommon, but please contact us if you have any signs or symptoms of: 1. wound infection (fever higher than 102.5 degrees F, redness, separation of wound, drainage, or increasing pain from the incision) 2. blood clots in legs (pain, swelling, redness and warmth in legs) 3. urinary tract infection (fever higher than 102.5 degrees F, burning upon urination or increased frequency of urination) 4. nerve problems (inability to walk on your toes or heels, numbness, loss of bowel or bladder control) 5. any other symptoms that concern you C. Please call the office at if you have any concerns or questions about your operation or recovery. D. No smoking! Smoking drastically decreases the chance of a solid fusion. E. Do not take any anti-inflammatory medications (Indocin, Advil, Motrin, Aspirin, Naprosyn, etc.) as these may inhibit the chance of a solid fusion. Tylenol is okay to take for pain. MANAGING PAIN AFTER SPINAL SURGERY 1. Narcotic medication is intended for short-term use and will be provided for surgical pain. Surgical pain usually lasts for a period of 4-6 weeks. Narcotic medication includes Percocet, Vicodin, Darvocet, Tylenol #3 or Lortab. 2. Longer-term pain is more appropriately treated with non-narcotic medication such as Tylenol ES. 3. Muscle spasm is not appropriately treated with narcotics. Muscle relaxers such as Soma, Flexeril or Skelaxin can be used along with Tylenol ES. 4. Remember that we all live with some "aches and pains". This is not unusual or uncommon after an injury or as we get older. a. Back pain is expected and may include muscle spasms for 4 to 6 weeks after surgery. The pain should gradually improve. If the pain worsens for no apparent reason, please contact the office. b. Intermittent leg pain may also be experienced and should not be concerned about unless it worsens for no apparent reason. If so, please contact the office. 5. We will provide appropriate medication within the normal guidelines of their prescribed use. We will also be very cautious and aware of potential abuse and extended duration of patients' medication needs. a. Pain medications are for your comfort and to assist with sleep and rest so that the tissue can heal. They are not provided in order to return to normal activity and should not be used through the day. To do so or worsening pain at night can result from ongoing tissue damage and development of tolerance to the prescribed medicine. 6. Please allow 2-3 days to process refills. Prescriptions will not be mailed but must be picked up at the office. FOLLOW UP VISIT: Keep your scheduled follow-up appointment. Any questions, please call the office at . Pending Studies at Discharge: No Stand-Alone Forms: My [employer], Smoking Cessation Medications and DC Order Prescriptions: New tramadol 50 mg tablet 50 mg PO Q6H PRN (Reason: pain, moderate) Qty: 30 RF: 0 Continued albuterol sulfate [ProAir HFA] 90 mcg/actuation HFA aerosol inhaler 2 puff INH Q4H PRN (Reason: shortness of breath or wheezing) Qty: 18 RF: 0 metformin 500 mg tablet extended release 24 hr 500 mg PO QAM Qty: 90 RF: 1 ezetimibe [Zetia] 10 mg tablet 10 mg PO QPM Qty: 90 RF: 0 furosemide 20 mg tablet 20 mg PO DAILY PRN (Reason: edema) Qty: 30 RF: 0 ferrous sulfate 325 mg (65 mg iron) tablet 325 mg PO TID Qty: 270 RF: 3 metoprolol succinate 100 mg tablet extended release 24 hr 150 mg PO QAM Qty: 90 RF: 3 alendronate [Fosamax] 70 mg tablet 70 mg PO WK Qty: 12 RF: 1 Eliquis 5 mg tablet 5 mg PO BID RF: 0 cyanocobalamin (vitamin B-12) 1,000 mcg tablet, sublingual 1,000 mcg SL QAM RF: 0 docusate sodium [Colace] 100 mg Capsule 100 mg PO DAILY PRN (Reason: Constipation) RF: 0 acetaminophen 500 mg Capsule 1,000 mg PO UD PRN (Reason: Pain) RF: 0 Discharge Orders: Discharge Order (Routine); Ordered 08/17/21 Ordered By: Rios Heard/Other Patient Handouts: High Blood Sugar (Hyperglycemia), Hypoglycemia (Low Blood Sugar), Managing Type 2 Diabetes, How to Check Your Blood Sugar Admission Data Admit Date/Time: 08/14/21 09:37 Attending Provider: Rios Cuadra Admit Provider: Rios Cuadra Primary Care Provider: Anu Parker Other Providers: Kaitlynn Heart ; Bartolome Rodriguez Other Interventions: Discharge Summary Assessment (RN) Last Done: 08/17/21 06:53
[2021-08-17] MEDS: traMADol HCL 50 MG TABLET PO PRN (12:10)
== END 2021-08-17 12:30 | disposition home or self-care (01) | DRG 454 ==
LOC: ASU 06:10 → 3E 09:37

== ENCOUNTER 2024-07-26 10:03 | Inpatient (IN) ==
--- NOTE | 2024-07-13 15:20 | Communication Note ---
Patient is scheduled for Left TCAR 07/26/[address] Richter at [facility]. Received call from Rebel Webber with blood bank that due to positive antibodies, patient will need to come into [facility] outpatient lab the day prior to surgery 07/25/24 (between 7am-10am) for further blood-bank ordered labs in order to have appropriate blood products available perioperatively. Per blood bank request, I spoke with patient via phone 07/13/24 and she confirmed she will come in 07/25 for blood-bank ordered labs.
--- NOTE | 2024-07-14 11:25 | Anesthesiology Consultation ---
Date of Service July 14, 2024 Assessment & Plan (1) Encounter for pre-operative examination: - Check BSG DOS - Infectious disease screening: Per assessment on 07/14/24- No known recent infectious disease contacts or current infectious disease symptoms. - Eliquis instructions: Per surgeon/prescriber - Positive antibodies: Received call from Rebel Webber with blood bank 07/13/24 that due to positive antibodies, patient will need to come into [facility] outpatient lab the day prior to surgery 07/25/24 (between 7am-10am) for further blood-bank ordered labs in order to have appropriate blood products available perioperatively. Per blood bank request, I spoke with patient via phone 07/13/24 and she confirmed she will come in 07/25 for blood-bank ordered labs. - Pending: * Awaiting surgeon-ordered cardiology preop evaluation ([facility], 07/21). * Spoke with [facility] lab. Due to lab error, surgeon-ordered preop BMP was not done with preop labs 07/13/24. Spoke with Kenyatta with surgeon's office, she states they will coordinate patient having preop BMP done 07/18 at [facility] (she states nothing further needed from [facility] in regards to this/coordinating). Awaiting preop BMP (07/18, [facility] lab). Chart Review Chart Review: Patient NOT seen in Pre Admission Testing History Surgery Operation Date: 07/26/24 09:45 Proposed Procedures p Left Transcarotid Artery Revascularization - Pedro Pablo Richter MD Height/Weight Height: 5 ft Weight: 87.997 kg Allergies Allergy/AdvReac Type Severity Reaction Status Date / Time hydrocodone Allergy Severe "Big" Verified 07/14/24 11:30 mental status changes tramadol Allergy Rash Verified 07/14/24 10:03 dasatinib [From Sprycel] AdvReac Severe Internal Verified 07/14/24 11:30 bleeding morphine AdvReac Intermediate "Big" Verified 07/14/24 11:30 mental status changes oxycodone AdvReac Intermediate Confusion Verified 07/14/24 10:02 rosuvastatin [From Crestor] AdvReac Intermediate Muscle Verified 07/14/24 10:02 cramping ciprofloxacin AdvReac Unknown N/V Verified 07/14/24 10:02 hydromorphone [From Dilaudid] AdvReac Unknown Nausea Verified 07/14/24 10:02 metronidazole AdvReac Unknown N/V Verified 07/14/24 10:02 Medications Home Medications Medication Instructions Recorded Confirmed Last Taken cyanocobalamin (vitamin B-12) 1,000 mcg sublingual QAM 04/15/20 07/14/24 01/04/23 08:00 1,000 mcg sublingual tablet docusate sodium 100 mg capsule 100 mg PO UD PRN Constipation 04/15/20 07/14/24 01/03/23 20:00 (Colace) acetaminophen 500 mg capsule 1,000 mg PO UD PRN Pain 08/06/20 07/14/24 01/04/23 20:30 albuterol sulfate 90 mcg/actuation 2 puff inhalation Q4H PRN 06/11/23 07/14/24 Unknown aerosol inhaler (ProAir HFA) shortness of breath or wheezing #18 grams nilotinib HCl 150 mg capsule 150 mg PO HS 08/31/23 07/14/24 Unknown ondansetron HCl 4 mg tablet 4 mg PO Q8H PRN nausea and 08/31/23 07/14/24 Unknown vomiting 5 days #20 tabs apixaban 5 mg tablet (Eliquis) 5 mg PO BID #180 tabs 03/10/24 07/14/24 Unknown cholecalciferol (vitamin D3) 50 50 mcg PO QAM 03/29/24 07/14/24 Unknown mcg (2,000 unit) capsule ezetimibe 10 mg tablet 10 mg PO PM #90 tabs 05/04/24 07/14/24 Unknown furosemide 20 mg tablet 20 mg PO QAM edema #90 tabs 06/02/24 07/14/24 Unknown metoprolol succinate 200 mg 200 mg PO QAM #90 tabs 06/08/24 07/14/24 Unknown tablet,extended release 24 hr acetaminophen 300 mg-codeine 30 mg 1 tab PO Q6H PRN pain #20 tabs 06/14/24 07/14/24 Unknown tablet clopidogrel 75 mg tablet 75 mg PO DAILY 07/14/24 07/14/24 Unknown glimepiride 1 mg tablet 1 mg PO QAM 07/14/24 07/14/24 Unknown Past Medical History Medical History AAA (abdominal aortic aneurysm) Abdominal ultrasound 10/2023: AAA measuring up to 3.7cm Asthma, acute Carotid artery stenosis Neck CTA 07/09/24: Severe (90%) stenosis of the proximal left internal carotid artery which has significantly progressed since prior CTA. 60% stenosis of the proximal right internal carotid artery which has mildly progressed since prior exam. Severe stenosis at the origin of the left external carotid artery. 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 doran Lumbar spinal stenosis Lumbar spine pain ongoing Morbid obesity with BMI of 40.0-44.9, adult Paroxysmal atrial fibrillation Presence of permanent cardiac pacemaker Implanted 2019 Dual chamber pacemaker. [employer] Implanted secondary to SSS Pulmonary emphysema Tachy-lian syndrome PPM Urinary incontinence Past Family History Family History Mother Myocardial infarction Family history of diabetes mellitus Diabetes Heart disease Hypertension Stroke Father Myocardial infarction Family history of diabetes mellitus Diabetes Heart disease Hypertension Stroke Other Cancer Denies family history of Ovarian cancer Prostate cancer Breast cancer Colorectal cancer Past Surgical History Surgical History H/O colectomy x2 (r/t diverticular disease), Had temporary ileostomy, since reversed History of appendectomy History of carpal tunnel release right History of cataract surgery R/L History of cholecystectomy w/ ileostomy reversal History of colonoscopy History of esophagogastroduodenoscopy (EGD) History of hysterectomy w/ 2nd colon resection History of incisional hernia repair (01/05/23) excision of cicatrix, open Incisional Hernia Repair History of lumbar surgery L4-L5 laminectomy 08/30/2020 [facility]: Grade 1 view, MAC#3, ETT#7.5, atraumatic x 1 History of meniscectomy of right knee 05/13/2020: LMA#4, atraumatic x1 History of tonsillectomy History of wisdom tooth extraction Hx of ileostomy since reversed Seborrheic keratoses (07/05/23) FINAL DIAGNOSIS In office procedure Dr. Bauer Skin, chest (excision): Seborrheic keratoses Social History Smoking Status: Former smoker tobacco type: cigarettes Do You Dip or Chew Tobacco: No Smoking End Date: 2016 Hx Alcohol Use: No Hx Substance Use: No substance use type: does not use Lab Results Anesthesia Preop Results Results Anesthesia Widget: WBC 10.17 K/ul (4.8-10.8) 07/13/24 Hgb 11.5 g/dl (12.0-16.0) L 07/13/24 Hct 37.7 % (37.0-47.0) 07/13/24 Plt 280 K/uL (130-400) 07/13/24 PT 11.4 Seconds (9.0-12.0) 07/13/24 PTT 35 Seconds (21-31) H 07/13/24 INR 1.1 (0.9-1.1) 07/13/24 Blood Type A Negative 07/13/24 Antibody Screen POSITIVE A 07/13/24 Direct Antiglob Test Positive (Negative) A 07/13/24 Testing Electrocardiogram Date: 07/13/24 Ventricular-paced rhythm with occasional PVCs at 66bpm. Chest X-Ray Date: 07/13/24 IMPRESSION: Mild ground glass haziness noted at right lower lung zone likely s/o Pneumonitis changes. Cardiac size enlarged suggestive of cardiomegaly. As compared previous x-ray date 06/27/2021,present x-ray shows pneumonitis changes noted. *Patient will have preop exam with cardiology 07/21/24- will assess physical exam findings from visit when completed.* Echocardiogram Date: 06/10/21 EF 62% Nondilated cardiac chambers No significant valvular pathology Normal LV wall motion Grade I diastolic dysfunction Other Testing Neck CTA Date: 07/09/24 IMPRESSION: 1. Severe (90%) stenosis of the proximal left internal carotid artery which has significantly progressed since prior CTA. 2. 60% stenosis of the proximal right internal carotid artery which has mildly progressed since prior exam. 3. Severe stenosis at the origin of the left external carotid artery. 4. Extensive plaque with moderate stenosis within visualized portions of the left cavernous carotid.
--- NOTE | 2024-07-25 10:50 | History & Physical Report ---
Date of Service July 25, 2024 History of Present Illness Primary Care Provider: Isrrael Reyes DO Name: BREE WHEELER Patient Number: [id number] : 1945 Date of Service: 07/10/2024 Chief Complaint: _Carotid stenosis HPI: _Ms. Wheeler is an elderly female who presents to Dr. Richter's vascular surgery clinic today for appointment to discuss her recent CTA neck findings. Patient denies any new concerns of cerebrovascular insufficiency including amaurosis, unilateral extremity weakness numbness tingling, difficulty speaking or swallowing, facial droop, sudden onset confusion. CTA of the neck performed prior to today's appointment does confirm severe over 90% stenosis of her left ICA and about 60% stenosis of her right ICA. This is consistent with her carotid ultrasound. 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 Current Home Meds: (Last Updated 07/10 14:10) acetaminophen-codeine (acetaminophen-codeine 300 mg-30 mg oral tablet) TAKE 1 TABLET BY MOUTH EVERY 6 HOURS NEEDED FOR PAIN acetaminophen (Tylenol 500 mg oral tablet) 1,000 mg PO bid PRN: Pain albuterol (ProAir HFA) 2 puff inhaled prn SOB apixaban (Eliquis 5 mg oral tablet) TAKE 1 TABLET BY MOUTH TWICE A DAY cholecalciferol (cholecalciferol 25 mcg (1000 intl units) oral tablet) 25 mcg PO Daily clopidogrel (Plavix 75 mg oral tablet) 75 mg PO Daily ezetimibe (ezetimibe 10 mg oral tablet) 10 mg PO Daily furosemide (furosemide 20 mg oral tablet) TAKE 1 TABLET BY MOUTH IN THE MORNING FOR EDEMA glimepiride (glimepiride 1 mg oral tablet) TAKE 1 TABLET BY MOUTH ONCE DAILY metoprolol (Metoprolol Succinate ER 200 mg oral tablet, extended release) TAKE 1 TABLET BY MOUTH ONCE DAILY IN THE MORNING nilotinib (Tasigna 150 mg oral capsule) 1 cap po daily HAZARDOUS MEDICATION | capsule: green | dispersed in applesauce: Nursing - RED, Pharmacy - green - [facility] 07/04 12:46 ondansetron (ondansetron 4 mg oral tablet) 4 mg PO Daily PRN: as needed for nausea/vomiting Allergies and Sensitivities: Dilaudid(Itching) oxyCODONE(mental changes) Flagyl(upset stomach) ciprofloxacin(upset stomach) Crestor(myalgia) Past Medical History: Problems: AAA (abdominal aortic aneurysm) Bilateral carotid artery stenosis Lt groin pain Tobacco user Hemorrhoid Arthritis Chronic fatigue Anxiety Lack of bladder control Hx of nausea and vomiting Constipation Blood in stool Gastric reflux H/O wheezing High blood cholesterol High blood pressure Heart palpitations Irregular heart beat Abdominal pain OBJECTIVE Vitals: Last Updated 07/10/24 13:21 Date Temp BP Location Pulse RR SpO2 Pain 07/10/24 124/82 Right Arm 70 18 96 0 07/04/24 122/70 Left Arm 65 96 0 12/10/17 36.5 133/64 Right Arm 52 20 0 Vital Signs are the last 3 documented. No Orthostatic Data Available Height and Weight: Last Updated 07/10/24 13:21 Date BMI Wt(kg) Wt(lb) Method Ht(cm) (ft-in) Method 07/10/24 88.5 195 Standing Scale 12/10/17 34.88 82.4 181 Standing Scale 153.7 5-0 Standing 11/07/17 34.11 80.9 178 Bed Scale 154 5-0 Patient stated Heights and Weights are the last 3 documented. Physical Exam Constitutional: In general patient is a healthy-appearing well-nourished well- developed elderly female in no distress. She is alert and oriented without any focal deficits. Her heart is irregular. Her lungs are decreased but clear. Radial pulses are +3. Distal pulses are palpable. Her abdominal exam is normal. ASSESSMENT: _ PLAN: _ 1 ) _bilateral ICA stenosis Patient does have bilateral ICA stenosis with significantly more plaque in her left ICA than her right. Her left appears to be over 90% which does put her at a significantly increased risk of CVA. Due to this increased risk, we did discuss surgical options with her today, including carotid endarterectomy versus transcarotid artery revascularization. After extensive discussion of both procedures, patient elects to proceed with a left TCAR procedure. The procedure benefits and alternatives were discussed at further length with the patient. The risks of the surgery including but not limited to bleeding, infection, local nerve damage, CVA, blood clots, heart attack, , were discussed with the patient by myself at Dr. Richter's request. Patient expresses understanding and agreement to proceed. This will clear in the next few weeks the patient's convenience. She is aware that she she will be started on aspirin and Plavix in addition to her Eliquis which she takes regularly for her atrial fibrillation. 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 Patient is agreeable to this plan. She will call with any other questions. Thank you for letting us participate in the care of this patient. I have personally spent_28__ minutes performing [id number] and slm-[id number]-wy-[id number] activities on this date of service.Time does not include separately reported services. Activities Include: x__ review of the medical record _x_ obtaining a history _x_ physical exam/evaluation __ review labs _x_ review radiology reports _x_ counseling/educating patient/family/caregiver __ discussion/referral to other healthcare professional _x_ documenting care in the medical record __ independent interpretation of results _x_ communication of results to patient/family/caregiver x__ coordination of care Signature Line Electronic Signature on File CC: Lindy Garcia MD [address] [place] [address] [address] [place] [address] CC: Gage Robert MD [address] [place] [address] [facility] [id number] * Electronically Reviewed/Signed by: Rosa Palacios PA-C Author Signature Dt/Tm:07/10/2024 04:30 PM [facility] [address] [place] [address] LM Result Type: HVI Outpt Note Date of Service: July 10, 2024 16:25 EST Authorization Status: Final Author or Import Date: CARA Palacios Lynn on July 10, 2024 16:30 EST Verified By: CARA Palacios Lynn on July 10, 2024 16:30 EST Encounter info: [id number], [place] [address], Clinic, 07/10/2024 - 07/10/2024 Allergies Allergy/AdvReac Type Severity Reaction Status Date / Time hydrocodone Allergy Severe "Big" Verified 07/21/24 13:41 mental status changes tramadol Allergy Rash Verified 07/21/24 13:41 dasatinib [From Sprycel] AdvReac Severe Internal Verified 07/21/24 13:41 bleeding morphine AdvReac Intermediate "Big" Verified 07/21/24 13:41 mental status changes oxycodone AdvReac Intermediate Confusion Verified 07/21/24 13:41 rosuvastatin [From Crestor] AdvReac Intermediate Muscle Verified 07/21/24 13:41 cramping ciprofloxacin AdvReac Unknown N/V Verified 07/21/24 13:41 hydromorphone [From Dilaudid] AdvReac Unknown Nausea Verified 07/21/24 13:41 metronidazole AdvReac Unknown N/V Verified 07/21/24 13:41 Home Medications Medication Instructions Recorded Confirmed Type cyanocobalamin (vitamin B-12) 1,000 mcg sublingual QAM 04/15/20 07/21/24 History 1,000 mcg sublingual tablet docusate sodium 100 mg capsule 100 mg PO UD PRN Constipation 04/15/20 07/21/24 History (Colace) acetaminophen 500 mg capsule 1,000 mg PO UD PRN Pain 08/06/20 07/21/24 History albuterol sulfate 90 mcg/actuation 2 puff inhalation Q4H PRN 06/11/23 07/21/24 Rx aerosol inhaler (ProAir HFA) shortness of breath or wheezing #18 grams nilotinib HCl 150 mg capsule 150 mg PO HS 08/31/23 07/21/24 History ondansetron HCl 4 mg tablet 4 mg PO Q8H PRN nausea and 08/31/23 07/21/24 Rx vomiting 5 days #20 tabs apixaban 5 mg tablet (Eliquis) 5 mg PO BID #180 tabs 03/10/24 07/21/24 Rx cholecalciferol (vitamin D3) 50 50 mcg PO QAM 03/29/24 07/21/24 History mcg (2,000 unit) capsule ezetimibe 10 mg tablet 10 mg PO PM #90 tabs 05/04/24 07/21/24 Rx furosemide 20 mg tablet 20 mg PO QAM edema #90 tabs 06/02/24 07/21/24 Rx metoprolol succinate 200 mg 200 mg PO QAM #90 tabs 06/08/24 07/21/24 Rx tablet,extended release 24 hr acetaminophen 300 mg-codeine 30 mg 1 tab PO Q6H PRN pain #20 tabs 06/14/24 07/21/24 Rx tablet clopidogrel 75 mg tablet 75 mg PO DAILY 07/14/24 07/21/24 History glimepiride 1 mg tablet 1 mg PO QAM 07/14/24 07/21/24 History clotrimazole-betamethasone 1 1 applic topical BID #15 grams 07/19/24 07/21/24 Rx %-0.05 % topical cream Past Med/Surg History Problem List (Updated 07/21/24 @ 14:00 by Fausto Malik PA-C) Tachy-lian syndrome PPM Sensory hearing loss Dermatitis Aortic aneurysm Hearing loss Cerumen impaction Abnormal mammogram of right breast Claudication Choledocholithiasis Elevated serum GGT level Elevated liver function tests Atypical nevus of thoracic region CML (chronic myelocytic leukemia) Follows with Dr. Garcia Abdominal aortic aneurysm Basophilia Neutrophilia Abnormal liver CT considered to have mild scarring per [facility] hepatology Arthritis Incisional hernia GERD without esophagitis Hernia Abnormal CT scan, lung Abnormal chest xray Statin myopathy (Acute) Hyperlipidemia Abdominal wall lump Hypertension Diabetes Abnormal CT of the abdomen Hypercalcemia Delirium Neurogenic claudication Degenerative spondylolisthesis L4-5 Encounter for pre-operative examination Osteoporosis Acute medial meniscal injury of right knee Achilles tendonitis Osteoarthritis of knees, bilateral Urinary incontinence Lumbar spinal stenosis Pes anserine bursitis Chronic constipation Carotid stenosis, bilateral Anemia Medical History Urinary incontinence Tachy-lian syndrome Pulmonary emphysema Hx of osteoporosis Lumbar spine pain Lumbar spinal stenosis Dyspnea on exertion History of blood transfusion Chronic constipation History of anemia History of colon polyps Paroxysmal atrial fibrillation History of cardioversion AAA (abdominal aortic aneurysm) Leukemia History of infection with vancomycin resistant Enterococcus (VRE) Morbid obesity with BMI of 40.0-44.9, adult CKD (chronic kidney disease) GERD (gastroesophageal reflux disease) Presence of permanent cardiac pacemaker CVA (cerebral vascular accident) Hypertension Hyperlipidemia Diabetes Carotid artery stenosis Asthma, acute Surgical History Seborrheic keratoses (07/05/23) History of incisional hernia repair (01/05/23) History of lumbar surgery History of hysterectomy History of carpal tunnel release History of esophagogastroduodenoscopy (EGD) History of colonoscopy Hx of ileostomy History of wisdom tooth extraction History of tonsillectomy History of appendectomy History of cholecystectomy History of cataract surgery History of meniscectomy of right knee H/O colectomy Family History Mother Myocardial infarction Family history of diabetes mellitus Diabetes Heart disease Hypertension Stroke Father Myocardial infarction Family history of diabetes mellitus Diabetes Heart disease Hypertension Stroke Other Cancer Denies family history of Ovarian cancer Prostate cancer Breast cancer Colorectal cancer Social History Smoking Status: Former smoker Tobacco Type: Cigarettes Age Started Using Tobacco: 20; Age Quit Using Tobacco: 72; packs per day: 1; Second Hand Exposure: No; Do You Dip or Chew Tobacco: No; Hx Alcohol Use: No Hx Substance Use: No Preferred Language: Bermudian Communication Ability: Effective Visual Impairment: No Limitations Hearing Ability: Use of Hearing Aid Crane Oiler Required: No Beliefs That Will Affect Care: None marital status: Current Living Situation: Spouse current occupational status: retired How many Children do You have: 2 Feels Safe at Home: Yes Childhood Exposure to Second-Hand Smoke: Yes (father) Diet: regular caffeine: No (decaf tea/coffee) during the past year weight has: decreased > 10 lbs Dental Care, Regularly: No Physical Activity Frequency: Does not Exercise Seatbelt Use: always Sunscreen Use: Yes Do you think of yourself as: straight/heterosexual Gender Identity: Female Assistive Devices: Denture - Upper, Denture - Lower, Glasses and Hearing Aid - Bilateral
[2024-07-26] MEDS: SODIUM CHLORIDE 0.9% 1,000 ML IV SCH (11:15)
[2024-07-26 11:19] LABS: BUN Creatinine Ratio 20.5 (10-20); Calcium 9.6 mg/dl (8.6-10.3); Creatinine Clr Calc Pharmacy 35.7 ml/min; Potassium 4.5 mmol/L (3.5-5.1)
[2024-07-26] MEDS ORDERED: PHENYLEPHRINE HCL 25 MG/250 ML NSS IV ONE ×2 (11:41)
[2024-07-26] MEDS ORDERED: fentaNYL citrate PF 100 MCG/2 ML VIAL ONE (11:41)
[2024-07-26] MEDS ORDERED: LIDOCAINE 2% 2 ML VIAL/AMP(20MG/ML) INFIL ONE ×2 (11:45→11:46)
[2024-07-26] MEDS ORDERED: PROPOFOL IV EMULSION 10 MG/ML 20 ML VIAL IV ONE ×2 (11:46→14:13)
[2024-07-26] MEDS ORDERED: ROCURONIUM BROMIDE 10 MG/ML 5 ML VIAL IV ONE (11:46)
[2024-07-26] MEDS ORDERED: GLYCOPYRROLATE 0.2 MG/ML VIAL ONE (11:47)
[2024-07-26] MEDS ORDERED: PROTAMINE SULFATE 10 MG/ML 5 ML VIAL IV ONE (11:48)
[2024-07-26] MEDS ORDERED: HEPARIN SOD (PORCINE) 1000 UNIT/ML ONE ×2 (11:48→13:32)
--- NOTE | 2024-07-26 11:52 | History & Physical Bridge Note ---
Date of Service July 26, 2024 History & Physical Bridge Note I have examined the patient, reviewed the History & Physical and in the interval since the performance of the History & Physical I have noted the following changes of clinical significance: no changes noted
[2024-07-26] MEDS ORDERED: ePHEDrine sulfate 50 MG/ML AMP IV PRN (12:31)
[2024-07-26] MEDS ORDERED: fentaNYL citrate PF 100 MCG/2 ML VIAL IV PRN (12:31)
[2024-07-26] MEDS ORDERED: LABETALOL HCL IV 5 MG/ML 20ML IV PRN (12:31)
[2024-07-26] MEDS ORDERED: PROMETHAZINE HCL 6.25 MG in SODIUM CHLORIDE 0.9% 50 ML IV PRN (12:31)
[2024-07-26] MEDS ORDERED: ATROPINE SULFATE 0.1 MG/ML 10ML SYR IV PRN (12:31)
[2024-07-26] MEDS: ceFAZolin 2000MG 2,000 MG/15 ML SYR IV SCH ×2 (12:50→20:16)
[2024-07-26] MEDS ORDERED: DEXAMETHASONE SOD INJ 4 MG/ML VIAL ONE (13:20)
[2024-07-26] MEDS ORDERED: ONDANSETRON INJ 2 MG/ML 2 ML VIAL ONE (13:20)
[2024-07-26] MEDS ORDERED: SUGAMMADEX SODIUM 200 MG/2 ML VIAL IV ONE (13:50)
[2024-07-26] MEDS: VISIPAQUE IV ONE (13:51)
[2024-07-26] MEDS: ceFAZolin 330 MG/ML 1 GM VIAL ONE (14:05)
[2024-07-26] MEDS: THROMBIN FOR SOLN 20000 UNIT KIT ONE (14:08)
[2024-07-26] MEDS: BUPIVACAINE/EPINEPHRINE 0.5% MPF 1:200,000 30 ML VIAL ONE (14:09)
--- NOTE | 2024-07-26 14:20 | Procedure Note ---
Angiogram Post Procedure Fluoroscopy Time (minutes): 5.1 Radiation (mGy): 38.05 Contrast: 12 Post Operative Report Pre & Post Diagnosis Operation Date: 07/26/24 12:30 Pre-Op Diagnosis: Left Internal Carotid Artery Stenosis Post-Op Diagnosis: Left Internal Carotid Artery Stenosis I identified the patient and participated in the time-out.: Yes Procedure Operation Date: 07/26/24 12:30 Actual Procedures p Left Transcarotid Artery Revascularization, Ultrasound localization of right common femoral vein(Left) - Pedro Pablo Richter MD Surgeon Pedro Pablo Richter MD Software Licensing Executive Dianne,PAC Estimated Blood Loss 20 Findings Consistent with Post-Op Diagnosis Specimens none Anesthesia Type General Complications none Disposition Accompanied Patient To Recovery: No Disposition: Recovery Room Indications This is a 79-year-old female with bilateral carotid disease much worse on the left than the right. Intervention was recommended. We discussed TCAR versus endarterectomy. She elected to go ahead with a TCAR approach. I have discussed the risks options and benefits of the procedure with the patient. The patient understands the risks options and benefits and agrees to the procedure. Description of Procedure The patient was taken to the operating room and placed in supine position. After general anesthesia was accomplished the groins and left side of the neck and chest were prepped and draped in a sterile manner. Timeout was performed and the patient was identified. A transverse incision was made just above the clavicle between the heads of the sternocleidomastoid. This is carried down to where the common carotid artery was identified. It was isolated. It was slung with umbilical tape. Next the U stitch was placed in the common carotid artery with a 5-0 Prolene suture. Patient was given 8000 heparin at that time. Ultrasound was then used to localize the left common femoral vein. The vein was patent and compressed easily. Under ultrasound guidance the right common femoral vein was punctured and the venous sheath was inserted. This was aspirated and flushed with heparinized saline. ACT at that time was 256. We then gave 2000 L of heparin IV. Using micropuncture technique the common carotid artery was punctured. The micro sheath was inserted to 3 cm. Injection was then done showing the bifurcation. There was a significant lesion seen at the origin of the internal carotid artery on the left side. We then inserted the J-wire left and short of the lesion. The micro sheath was removed and the TCAR sheath was inserted. Once it was in place and held against the artery it was sutured to the chest wall and the incision edge. We then flushed the tubing appropriately. The venous return to was clamped onto the TCAR sheath. It was flushed through and then attached to the venous inflow sheath in the right groi n. Sheath was checked for flow. The saline cleared nicely. The common carotid artery was then clamped. Flow reversal was instituted.The flow reversal was again checked for flow and found to have good flow after clamping. We inserted a 6 x 25 balloon backloaded on the wire. The wire was passed through the lesion into the petrous portion of the internal carotid. The 6 balloon was then advanc ed to the lesion. Lesion was then predilated with a 6 mm balloon. Balloon was removed. We then inserted the 9 x 30 stent. This was deployed across the lesion without difficulty. The catheter was removed. Appeared to be still a slight amount of narrowing at the midportion of the stent at the proximal portion of the internal carotid lesion once. We allowed the flow mucosal to continue for 2 minutes and then did an arteriogram. This showed slight narrowing at the site of the lesion. Just beyond the distal end of the stent there was a kinking of the internal carotid due to the tortuosity of the vessel. We decided to extend the stent up beyond the skin came to straighten the artery out. We inserted a 6 x 35 cylindrical stent and overlapped with the previously placed stent. We then inserted a 6 x 35 balloon and redilated the overlap area as well as the residual narrowing seen at the proximal end of the internal carotid.. Widely patent stent was then noted on fluoroscopy. The carotid was allowed to go 2 minutes with flow reversal. Completion angiogram was done at that time which showed a widely patent carotid stent. There was no further kink in the internal carotid beyond the stent. At that point the common carotid artery was unclamped. The venous return tubing was clamped and removed from the TCAR sheath. The blood was allowed to flow back into the venous system. The TCAR sheath was then removed and the 5-0 Prolene suture securely tied. The patient was given 25 mg of protamine. Hemostasis was noted of the puncture site. An ACT was then drawn. The ACT was 158. The sheath was pulled from the groin and pressure was applied. Wound was irrigated with saline solution. Adequate hemostasis was obtained of the wound. Once this was noted the wound was closed in usual fashion using a 3-0 Vicryl suture for the subcutaneous layer and a 4-0 subcuticular Vicryl suture for the skin edges. Dermabond was used for dressing. The patient left the operation room in satisfactory condition and tolerated the procedure well. All needle and sponge counts were correct at the end of the procedure. Rosa Palacios Pac assisted due to lack of resident availability and was necessary for positioning, draping, retraction, wound closure deep layers, subcutaneous tissue, and skin closure and was necessary for assisting with the case. I attest to the content of the Intraoperative Record and any orders documented therein. Any exceptions are noted below.
[2024-07-26] MEDS ORDERED: LABETALOL HCL IV 5 MG/ML 20ML IV ONE (14:52)
[2024-07-26] MEDS: PHENYLEPHRINE/NSS 25 MG/250 ML BAG IV PRN (15:41)
--- NOTE | 2024-07-26 15:54 | Anesthesiology Progress Note ---
Date of Service July 26, 2024 Anesthesia Post Procedure Vital Signs Vital Signs: Temp Pulse Pulse Resp BP BP Pulse Ox 07/26/24 15:50 75 19 157/78 H 165/59 H 95 07/26/24 15:40 36.3 C L 76 24 90/48 L 110/48 L 92 07/26/24 15:30 83 19 95/49 L 116/57 L 94 07/26/24 15:20 77 18 108/52 L 108/50 L 99 07/26/24 15:10 97 H 21 106/47 L 105/49 L 96 07/26/24 15:00 87 16 108/53 L 119/48 L 99 07/26/24 14:50 90 23 109/51 L 121/55 L 99 07/26/24 14:43 36.1 C L 75 16 125/56 L 131/101 H 97 07/26/24 11:17 111/74 07/26/24 11:02 07/26/24 11:02 36.4 C L 76 16 134/63 98 O2 Del Method O2 Flow Rate 07/26/24 15:50 Room Air 07/26/24 15:40 Room Air 07/26/24 15:30 Room Air 07/26/24 15:20 Oxymask 3 07/26/24 15:10 Oxymask 3 07/26/24 15:00 Oxymask 3 07/26/24 14:50 Oxymask 6 07/26/24 14:43 Oxymask 6 07/26/24 11:17 07/26/24 11:02 Room Air 07/26/24 11:02 Room Air Transfer of Care Handoff Completed per policy Notes Mental Status: alert / awake / arousable and participated in evaluation Patient Amnestic to Procedure: Yes Nausea / Vomiting: adequately controlled Pain: adequately controlled Airway Patency, RR, SpO2: stable & adequate BP & HR: stable & adequate Hydration State: stable & adequate Anesthetic Complications: no major complications apparent and Pt Satisfied with anesthetic care Notes: phenylephrine infusion started for BP control
[2024-07-26] MEDS ORDERED: ALBUTEROL HFA 8 GM INHALER INH PRN (16:59)
[2024-07-26] MEDS ORDERED: PHENYLEPHRINE/NSS 25 MG/250 ML BAG IV PRN (16:59)
[2024-07-26] MEDS ORDERED: STAT IV Infusion **Titration per Protocol STA (16:59)
[2024-07-26] MEDS ORDERED: ONDANSETRON 4 MG OD TAB PO PRN (17:12)
[2024-07-26] MEDS: LACTATED RINGER'S 1,000 ML IV SCH (17:59)
--- NOTE | 2024-07-26 19:59 | Critical Care Consultation ---
Date of Consultation July 26, 2024 Assessment & Plan (1) Tachy-lian syndrome: (2) CML (chronic myelocytic leukemia): (3) History of transcarotid artery revascularization (TCAR): Plan Atrial fibrillation, PVCs S/p PPM Repeat electrolytes and replete as indicated Currently asymptomatic Follow up with Cardiology as OP DAPT S/p L TCAR Monitor for bleeding Continue neurologic checks Multimodal pain management LR infusion and perioperative antibiotics per Dr. Richter Wean neosynephrine for SBP > 100mmHg CML Home nilotinib held DMII ISS as inpatient Thank you for allowing me to participate in the care of your patient. We will continue to follow with you. History of Present Illness Reason for Consultation: Post TCAR Requesting Physician: Neelam Attending Physician: Pedro Pablo Richter MD History of Present Illness Mrs. Migdalia Elkins is a pleasant 79YOF with a history of obesity, former tobacco use (50PY), tachybrady syndrome s/p PPM, atrial fibrillation on Eliquis, CML on PO chemotherapy, GERD, NIDDMII, AAA, GERD, HTN/HLD who is admitted to ICU s/p L TCAR with Dr. Richter. ICU is consulted for postoperative care. Patient seen in ICU 106. She is AAOx3. Pleasant and conversant. Having some mild discomfort at the surgical site without bleeding or unexpected edema. She is having some ectopy on telemetry, remains in atrial fibrillation. Rare pacer spikes. She is asymptomatic at this time. Neosynephrine for SBP > 100mmHg. ROS + pain, mild SOB (not changed from prior). Otherwise negative. Mary tells me she is "always in Afib" and her PPM does no pace her out of it. Allergies Allergy/AdvReac Type Severity Reaction Status Date / Time hydrocodone Allergy Severe "Big" Verified 07/26/24 10:52 mental status changes tramadol Allergy Rash Verified 07/26/24 10:52 dasatinib [From Sprycel] AdvReac Severe Internal Verified 07/26/24 10:52 bleeding morphine AdvReac Intermediate "Big" Verified 07/26/24 10:52 mental status changes oxycodone AdvReac Intermediate Confusion Verified 07/26/24 10:52 rosuvastatin [From Crestor] AdvReac Intermediate Muscle Verified 07/26/24 10:52 cramping ciprofloxacin AdvReac Unknown N/V Verified 07/26/24 10:52 hydromorphone [From Dilaudid] AdvReac Unknown Nausea Verified 07/26/24 10:52 metronidazole AdvReac Unknown N/V Verified 07/26/24 10:52 Home Medications Medication Instructions Recorded Confirmed Type cyanocobalamin (vitamin B-12) 1,000 mcg sublingual QAM 04/15/20 07/26/24 History 1,000 mcg sublingual tablet docusate sodium 100 mg capsule 100 mg PO UD PRN Constipation 04/15/20 07/26/24 History (Colace) acetaminophen 500 mg capsule 1,000 mg PO UD PRN Pain 08/06/20 07/26/24 History albuterol sulfate 90 mcg/actuation 2 puff inhalation Q4H PRN 06/11/23 07/26/24 Rx aerosol inhaler (ProAir HFA) shortness of breath or wheezing #18 grams nilotinib HCl 150 mg capsule 150 mg PO HS 08/31/23 07/26/24 History ondansetron HCl 4 mg tablet 4 mg PO Q8H PRN nausea and 08/31/23 07/26/24 Rx vomiting 5 days #20 tabs cholecalciferol (vitamin D3) 50 50 mcg PO QAM 03/29/24 07/26/24 History mcg (2,000 unit) capsule ezetimibe 10 mg tablet 10 mg PO PM #90 tabs 05/04/24 07/26/24 Rx furosemide 20 mg tablet 20 mg PO QAM edema #90 tabs 06/02/24 07/26/24 Rx metoprolol succinate 200 mg 200 mg PO QAM #90 tabs 06/08/24 07/26/24 Rx tablet,extended release 24 hr acetaminophen 300 mg-codeine 30 mg 1 tab PO Q6H PRN pain #20 tabs 06/14/24 07/26/24 Rx tablet glimepiride 1 mg tablet 1 mg PO QAM 07/14/24 07/26/24 History clotrimazole-betamethasone 1 1 applic topical BID #15 grams 07/19/24 07/26/24 Rx %-0.05 % topical cream aspirin 81 mg capsule 81 mg PO BID 07/26/24 07/26/24 History ticagrelor 90 mg tablet (Brilinta) 90 mg PO BID 07/26/24 07/26/24 History Patient History Medical History Urinary incontinence Tachy-lian syndrome Pulmonary emphysema Hx of osteoporosis Lumbar spine pain Lumbar spinal stenosis Dyspnea on exertion History of blood transfusion Chronic constipation History of anemia History of colon polyps Paroxysmal atrial fibrillation History of cardioversion AAA (abdominal aortic aneurysm) Leukemia History of infection with vancomycin resistant Enterococcus (VRE) Morbid obesity with BMI of 40.0-44.9, adult CKD (chronic kidney disease) GERD (gastroesophageal reflux disease) Presence of permanent cardiac pacemaker CVA (cerebral vascular accident) Hypertension Hyperlipidemia Diabetes Carotid artery stenosis Asthma, acute Surgical History Seborrheic keratoses (07/05/23) History of incisional hernia repair (01/05/23) History of lumbar surgery History of hysterectomy History of carpal tunnel release History of esophagogastroduodenoscopy (EGD) History of colonoscopy Hx of ileostomy History of wisdom tooth extraction History of tonsillectomy History of appendectomy History of cholecystectomy History of cataract surgery History of meniscectomy of right knee H/O colectomy Family History Mother Myocardial infarction Family history of diabetes mellitus Diabetes Heart disease Hypertension Stroke Father Myocardial infarction Family history of diabetes mellitus Diabetes Heart disease Hypertension Stroke Other Cancer Denies family history of Ovarian cancer Prostate cancer Breast cancer Colorectal cancer Social History Smoking Status: Former smoker Tobacco Type: Cigarettes Age Started Using Tobacco: 20; Age Quit Using Tobacco: 72; packs per day: 1; Smoking End Date: 2016; Second Hand Exposure: No; Do You Dip or Chew Tobacco: No; Tobacco Cessation Education Requested by Patient: No Hx Alcohol Use: No Hx Substance Use: No Preferred Language: Martiniquais Communication Ability: Effective Visual Impairment: No Limitations Hearing Ability: Use of Hearing Aid Mining Manager Required: No Beliefs That Will Affect Care: None marital status: Current Living Situation: Spouse current occupational status: retired How many Children do You have: 2 Other Information That Helps Us Care for You: No Feels Safe at Home: Yes Safety Concerns: Feels Safe At This Time Childhood Exposure to Second-Hand Smoke: Yes (father) Diet: regular caffeine: No (decaf tea/coffee) during the past year weight has: decreased > 10 lbs Dental Care, Regularly: No Physical Activity Frequency: Does not Exercise Seatbelt Use: always Sunscreen Use: Yes Do you think of yourself as: straight/heterosexual Gender Identity: Female Assistive Devices: Denture - Upper, Denture - Lower, Glasses and Hearing Aid - Bilateral Review of Systems 2 Review of Systems: All systems reviewed & are unremarkable except as noted in Subjective Physical Exam 2 Constitutional: well developed and + obese; no acute distress Eyes: PERRL, conjunctivae normal, anicteric sclerae ENMT: external ear and nose normal, oropharynx normal Neck: L neck surgical site with ecchymosis not beyond expected. Hemostatic. Minimal edema. Tracheal midline. Respiratory: normal respiratory effort, lungs clear to auscultation Cardiovascular: Rate/Rhythm: regular rate and + irregularly irregular Heart Sounds: + murmur Vessels: no JVD Extremities: normal capillary refill; no edema Gastrointestinal (Abdomen): normal bowel sounds, soft, nontender, no hepatosplenomegaly Surgical scar well healed. Skin: no rashes, warm and dry Surgical site as above Neurologic: PERRL, EOMI, accommodation nl, no face palsy, no dysarthria Results & Data Results & Data Vital Signs (Past 12 Hours) Vital Signs Temp Pulse Pulse Pulse Resp BP BP 07/26/24 17:45 81 13 07/26/24 17:31 129/70 07/26/24 17:09 82 22 07/26/24 17:03 78 18 07/26/24 16:54 90 20 07/26/24 16:30 91 H 19 125/80 07/26/24 16:15 83 21 128/62 07/26/24 16:00 115 H 19 134/66 07/26/24 15:50 75 19 157/78 H 07/26/24 15:40 36.3 C L 76 24 90/48 L 07/26/24 15:30 83 19 95/49 L 07/26/24 15:20 77 18 108/52 L 07/26/24 15:10 97 H 21 106/47 L 07/26/24 15:00 87 16 108/53 L 07/26/24 14:50 90 23 109/51 L 07/26/24 14:43 36.1 C L 75 16 125/56 L 07/26/24 11:17 111/74 07/26/24 11:02 07/26/24 11:02 36.4 C L 76 16 BP Pulse Ox O2 Del Method O2 Flow Rate 07/26/24 17:45 92 07/26/24 17:31 07/26/24 17:09 92 07/26/24 17:03 93 07/26/24 16:54 92 07/26/24 16:30 137/53 L 93 Room Air 07/26/24 16:15 121/64 93 Room Air 07/26/24 16:00 116/78 94 Room Air 07/26/24 15:50 165/59 H 95 Room Air 07/26/24 15:40 110/48 L 92 Room Air 07/26/24 15:30 116/57 L 94 Room Air 07/26/24 15:20 108/50 L 99 Oxymask 3 07/26/24 15:10 105/49 L 96 Oxymask 3 07/26/24 15:00 119/48 L 99 Oxymask 3 07/26/24 14:50 121/55 L 99 Oxymask 6 07/26/24 14:43 131/101 H 97 Oxymask 6 07/26/24 11:17 07/26/24 11:02 Room Air 07/26/24 11:02 134/63 98 Room Air Laboratory Results 07/27/24 06:56 07/27/24 06:56 Coding Level of Care Code 87671 INT INP/OBS CARE MIN Diagnoses Tachy-lian syndrome I49.5 CML (chronic myelocytic leukemia) C92.10 History of transcarotid artery revascularization (TCAR) Z98.62 Time Spent (min) 30
[2024-07-26] MEDS: DOCUSATE SODIUM 100 MG CAP PO PRN (20:16)
[2024-07-26] MEDS: CLOTRIMAZOLE/BETAMETHASONE CR 15 GM TUBE EXT SCH (20:16)
[2024-07-26] MEDS: EZETIMIBE 10 MG TAB PO SCH (20:17)
[2024-07-26] MEDS: ASPIRIN 81 MG ECTAB PO SCH (20:17)
[2024-07-26] MEDS: ACETAMINOPHEN W/CODEINE #3 1 TAB PO PRN (20:23)
[2024-07-26 20:30] LABS: BUN Creatinine Ratio 21.1 (10-20); Calcium 8.5 mg/dl (8.6-10.3); Creatinine Clr Calc Pharmacy 36.8 ml/min; Magnesium 1.8 mg/dl (1.7-2.4); Potassium 4.9 mmol/L (3.5-5.1)
[2024-07-26] MEDS ORDERED: CARBOHYDRATES FOR HYPOGLYCEMIA PO PRN ×2 (20:42→21:17)
[2024-07-26] MEDS ORDERED: GLUCOSE 40% GEL 15 GM TUBE PO PRN ×2 (20:42→21:17)
[2024-07-26] MEDS ORDERED: GLUCAGON FOR INJ 1 MG VIAL SQ PRN ×2 (20:42→21:17)
[2024-07-26] MEDS ORDERED: GLUCOSE 10 TAB/TUBE PO PRN ×2 (20:42→21:17)
[2024-07-26] MEDS ORDERED: DEXTROSE 50% 50 ML SYRINGE IV PRN ×2 (20:42→21:17)
[2024-07-26] MEDS ORDERED: Nursing to Pharmacy Communication SCH ×2 (20:45→21:30)
[2024-07-26] MEDS ORDERED: ICU Protocol for HYPERglycemia SCH (21:00)
[2024-07-26] MEDS: TICAGRELOR 90 MG TAB PO SCH (21:53)
[2024-07-26] MEDS: MAGNESIUM SULFATE / D5W 1 GM/100 ML BAG IV SCH (21:53)
[2024-07-26] MEDS: INSULIN ASPART PER UNIT CHARGE SC SCH (22:09)
[2024-07-27] MEDS ORDERED: STAT IV Infusion **Titration per Protocol STA (01:06)
[2024-07-27] MEDS: PHENYLEPHRINE/NSS 25 MG/250 ML BAG IV SCH (01:24)
[2024-07-27 02:52] VITALS: TEMP 97.5
[2024-07-27] MEDS ORDERED: INSULIN ASPART PER UNIT CHARGE SC SCH (07:30)
[2024-07-27 07:34] LABS: Basophils # (auto) 0.03 K/uL (0.00-0.20); Basophils % (auto) 0.2 %; Hematocrit (blood only) 29.5 % (37.0-47.0); Hemoglobin 9.1 g/dl (12.0-16.0); Immature Granulocytes # (auto) 0.11 K/uL (0.01-0.20); Immature Granulocytes % (auto) 0.7 %; Lymphocytes # (auto) 1.09 K/uL (1.20-3.40); Mean Corpuscular Hemoglobin 26.8 pg (25.0-34.0); Mean Corpuscular Hgb Conc 30.8 g/dL (32.0-36.0); Mean Platelet Volume 10.1 fL (9.4-12.4); Monocytes # (auto) 0.97 K/uL (0.11-0.59); Monocytes % (auto) 6.2 %; Neutrophils # (auto) 13.37 K/uL (1.40-6.50); Neutrophils % (auto) 85.9 %; Platelet Count 276 K/uL (130-400); RDW Coefficient of Variation 15.9 % (11.5-14.5); RDW Standard Deviation 50.8 fL (36.4-46.3); Red Blood Count 3.39 M/uL (4.20-5.40); White Blood Count 15.57 K/ul (4.8-10.8)
[2024-07-27 07:41] LABS: Calcium 8.2 mg/dl (8.6-10.3); Creatinine Clr Calc Pharmacy 42.4 ml/min; Magnesium 2.5 mg/dl (1.7-2.4); Phosphorus 3.6 mg/dl (2.5-4.9); Potassium 4.7 mmol/L (3.5-5.1)
--- NOTE | 2024-07-27 08:03 | Critical Care Progress Note ---
Date of Service July 27, 2024 Assessment & Plan (1) Tachy-lian syndrome: (2) CML (chronic myelocytic leukemia): (3) History of transcarotid artery revascularization (TCAR): Plan --Carotid atherosclerosis S/p L TCAR on 07/26/[address] Richter Monitor for bleeding Continue neurologic checks Multimodal pain management -- Atrial fibrillation, PVCs S/p PPM Repeat electrolytes and replete as indicated Currently asymptomatic Follow up with Cardiology as OP DAPT --CKD Continue to monitor BUN/creatinine Avoid nephrotoxic medications -- CML Home nilotinib held --Pulmonary emphysema History of smoking, quit in [address] Macias as an outpatient -- DMII ISS as inpatient --Prophylaxis VTE: IPC GI: None Lines: Radial Diet: Cardiac Plan: In/out: +2.9 L, urine output 1010 There is some discrepancy when it comes to patient's arterial line and cuff pressure A-line seems to be dampened. I would recommend to go with the pressures on the cuff. She is still needing low-dose phenylephrine. Hopefully will be able to get her off. Disposition as per vascular surgery Please note the above document was generated using voice recognition software. It may contain grammatical, syntax or spelling errors.Any formal questions or concerns about the content, text or information contained within the body of this dictation should be directly addressed to the provider for clarification. Admission and Anticipated Discharge Date Admission Date: July 26, 2024 Subjective Patient seen and examined at bedside. No acute distress, no adverse events overnight She was sitting on the chair. I checked her blood pressure on the left arm where her systolic was 88 and diastolic in the 60s. MAP was 68 I checked the blood pressure on the right arm and her MAP went lower because the diastolic was reading in the mid 40s. She was totally asymptomatic Denies any dizziness, no nausea, no vomiting No blurry vision No chest pain Review of Systems 2 Review of Systems: All systems reviewed & are unremarkable except as noted in Subjective Physical Exam 2 Physical Exam: Constitutional: No acute distress HEENT: EOMI, PERRLA, incision clean with minimal left-sided hematoma Respiratory system: Good air entry bilaterally, no wheeze, no rhonchi, minimal crackles bilateral lower lobe CVS: S1-S2 positive, no murmurs or gallops Abdomen: Soft, nontender, nondistended, positive bowel sounds x4, obese Extremities: +2 pulses bilaterally radialis/ dorsalis pedis, no cyanosis, minimal pitting edema bilateral lower extremity Neuro: Awake alert oriented x3 Psych: Normal mood and affect Skin: no rashes, warm and dry Lymphatic: no cervical or axillary lymphadenopathy Results & Data Results & Data Vital Signs (Past 12 Hours) Vital Signs Temp Pulse Resp BP Pulse Ox 07/27/24 06:09 71 21 100 07/27/24 06:01 113/69 07/27/24 05:48 71 18 99 07/27/24 05:36 64 21 100 07/27/24 05:00 101/42 L 07/27/24 05:00 75 20 95 07/27/24 05:00 36.4 C L 07/27/24 04:45 75 17 96 07/27/24 04:18 77 17 98 07/27/24 03:54 70 18 94 07/27/24 03:46 36.4 C L 07/27/24 03:00 76 18 95 07/27/24 03:00 120/54 L 07/27/24 03:00 120/54 L 07/27/24 03:00 120/54 L 07/27/24 02:30 69 17 97 07/27/24 02:27 67 24 96 07/27/24 02:00 36.4 C L 07/27/24 01:30 69 20 95 07/27/24 01:20 36.5 C 07/27/24 01:09 79 20 95 07/27/24 00:30 87 23 92 07/27/24 00:03 80 24 93 07/27/24 00:00 144/81 H 07/27/24 00:00 144/81 H 07/26/24 23:54 70 20 93 07/26/24 23:30 94 H 24 91 07/26/24 23:01 131/52 L 07/26/24 23:01 131/52 L 07/26/24 23:00 76 24 90 07/26/24 22:33 65 21 90 07/26/24 22:15 77 24 90 07/26/24 21:52 36.4 C L 07/26/24 21:30 75 16 91 07/26/24 21:03 64 24 93 07/26/24 21:00 159/64 H 07/26/24 21:00 159/64 H 07/26/24 21:00 159/64 H 07/26/24 20:48 65 24 92 07/26/24 20:06 74 24 93 07/26/24 20:00 36.4 C L Laboratory Results 07/27/24 06:56 07/27/24 06:56 Coding Level of Care Code 35798 SUB INP/OBS CARE 2/35MIN Diagnoses Tachy-lian syndrome I49.5 CML (chronic myelocytic leukemia) C92.10 History of transcarotid artery revascularization (TCAR) Z98.62
[2024-07-27] MEDS: FUROSEMIDE 20 MG TAB PO SCH (09:30)
[2024-07-27] MEDS: CHOLECALCIFEROL 25 MCG (1000 UNITS) TAB PO SCH (09:30)
[2024-07-27] MEDS: GLIMEPIRIDE 2 MG TAB PO SCH (09:31)
[2024-07-27] MEDS: METOPROLOL SUCC 50MG EXT REL TAB PO SCH (09:31)
[2024-07-27] MEDS: CYANOCOBALAMIN (B-12) 500 MCG TABLET PO SCH (09:32)
[2024-07-27 10:56] VITALS: O2SAT 93
[2024-07-27 12:11] VITALS: RESP 20
--- NOTE | 2024-07-27 12:41 | Surgery Progress Note ---
Date of Service July 27, 2024 Assessment & Plan (1) S/P vascular surgery: Plan: Patient POD#1 from a right tcar. Doing well without complications. Will d\c today. Admission and Anticipated Discharge Date Admission Date: July 26, 2024 Subjective Patient without complaint. Ambulated without difficulty. Denies any focal neuro deficits. Physical Exam Constitutional: WD/WN, vitals as above Neck: trachea midline Respiratory: normal respiratory effort; no respiratory distress Cardiovascular: Rate/Rhythm: regular rate and regular rhythm Skin: + ecchymosis (moderate ecchymosis, mild swelling) Neurologic: CN's II-XI intact bilaterally, normal sensation to monofilament and moves all extremities Results & Data Vital Signs (Past 12 Hours) Vital Signs Temp Pulse Resp BP Pulse Ox 07/27/24 12:00 81 20 07/27/24 11:54 67 23 07/27/24 11:54 81/40 L 07/27/24 11:09 63 24 07/27/24 11:00 88/43 L 07/27/24 10:53 84/41 L 07/27/24 10:45 64 33 H 07/27/24 10:24 61 22 07/27/24 10:09 95/48 L 07/27/24 10:09 64 20 93 07/27/24 10:01 84/52 L 07/27/24 10:00 61 30 H 92 07/27/24 09:00 61 17 92 07/27/24 08:03 81 L 07/27/24 08:01 111/64 07/27/24 07:54 67 32 H 88 L 07/27/24 07:01 120/68 07/27/24 07:00 62 23 100 07/27/24 06:09 71 21 100 07/27/24 06:01 113/69 07/27/24 05:48 71 18 99 07/27/24 05:36 64 21 100 07/27/24 05:00 101/42 L 07/27/24 05:00 75 20 95 07/27/24 05:00 36.4 C L 07/27/24 04:45 75 17 96 07/27/24 04:18 77 17 98 07/27/24 03:54 70 18 94 07/27/24 03:46 36.4 C L 07/27/24 03:00 76 18 95 07/27/24 03:00 120/54 L 07/27/24 03:00 120/54 L 07/27/24 03:00 120/54 L 07/27/24 02:30 69 17 97 07/27/24 02:27 67 24 96 07/27/24 02:00 36.4 C L 07/27/24 01:30 69 20 95 07/27/24 01:20 36.5 C 07/27/24 01:09 79 20 95
--- NOTE | 2024-07-27 12:59 | Discharge Summary ---
Date of Service July 27, 2024 Admission HPI Per Admitting Provider Name: BREE WHEELER Patient Number: [id number] : 1945 Date of Service: 07/10/2024 Chief Complaint: _Carotid stenosis HPI: _Ms. Wheeler is an elderly female who presents to Dr. Richter's vascular surgery clinic today for appointment to discuss her recent CTA neck findings. Patient denies any new concerns of cerebrovascular insufficiency including amaurosis, unilateral extremity weakness numbness tingling, difficulty speaking or swallowing, facial droop, sudden onset confusion. CTA of the neck performed prior to today's appointment does confirm severe over 90% stenosis of her left ICA and about 60% stenosis of her right ICA. This is consistent with her carotid ultrasound. 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 Current Home Meds: (Last Updated 07/10 14:10) acetaminophen-codeine (acetaminophen-codeine 300 mg-30 mg oral tablet) TAKE 1 TABLET BY MOUTH EVERY 6 HOURS NEEDED FOR PAIN acetaminophen (Tylenol 500 mg oral tablet) 1,000 mg PO bid PRN: Pain albuterol (ProAir HFA) 2 puff inhaled prn SOB apixaban (Eliquis 5 mg oral tablet) TAKE 1 TABLET BY MOUTH TWICE A DAY cholecalciferol (cholecalciferol 25 mcg (1000 intl units) oral tablet) 25 mcg PO Daily clopidogrel (Plavix 75 mg oral tablet) 75 mg PO Daily ezetimibe (ezetimibe 10 mg oral tablet) 10 mg PO Daily furosemide (furosemide 20 mg oral tablet) TAKE 1 TABLET BY MOUTH IN THE MORNING FOR EDEMA glimepiride (glimepiride 1 mg oral tablet) TAKE 1 TABLET BY MOUTH ONCE DAILY metoprolol (Metoprolol Succinate ER 200 mg oral tablet, extended release) TAKE 1 TABLET BY MOUTH ONCE DAILY IN THE MORNING nilotinib (Tasigna 150 mg oral capsule) 1 cap po daily HAZARDOUS MEDICATION | capsule: green | dispersed in applesauce: Nursing - RED, Pharmacy - green - [facility] 07/04 12:46 ondansetron (ondansetron 4 mg oral tablet) 4 mg PO Daily PRN: as needed for nausea/vomiting Allergies and Sensitivities: Dilaudid(Itching) oxyCODONE(mental changes) Flagyl(upset stomach) ciprofloxacin(upset stomach) Crestor(myalgia) Past Medical History: Problems: AAA (abdominal aortic aneurysm) Bilateral carotid artery stenosis Lt groin pain Tobacco user Hemorrhoid Arthritis Chronic fatigue Anxiety Lack of bladder control Hx of nausea and vomiting Constipation Blood in stool Gastric reflux H/O wheezing High blood cholesterol High blood pressure Heart palpitations Irregular heart beat Abdominal pain OBJECTIVE Vitals: Last Updated 07/10/24 13:21 Date Temp BP Location Pulse RR SpO2 Pain 07/10/24 124/82 Right Arm 70 18 96 0 07/04/24 122/70 Left Arm 65 96 0 12/10/17 36.5 133/64 Right Arm 52 20 0 Vital Signs are the last 3 documented. No Orthostatic Data Available Height and Weight: Last Updated 07/10/24 13:21 Date BMI Wt(kg) Wt(lb) Method Ht(cm) (ft-in) Method 07/10/24 88.5 195 Standing Scale 12/10/17 34.88 82.4 181 Standing Scale 153.7 5-0 Standing 11/07/17 34.11 80.9 178 Bed Scale 154 5-0 Patient stated Heights and Weights are the last 3 documented. Physical Exam Constitutional: In general patient is a healthy-appearing well-nourished well- developed elderly female in no distress. She is alert and oriented without any focal deficits. Her heart is irregular. Her lungs are decreased but clear. Radial pulses are +3. Distal pulses are palpable. Her abdominal exam is no rmal. ASSESSMENT: _ PLAN: _ 1 ) _bilateral ICA stenosis Patient does have bilateral ICA stenosis with significantly more plaque in her left ICA than her right. Her left appears to be over 90% which does put her at a significantly increased risk of CVA. Due to this increased risk, we did discuss surgical options with her today, including carotid endarterectomy versus transcarotid artery revascularization. After extensive discussion of both procedures, patient elects to proceed with a left TCAR procedure. The procedure benefits and alternatives were discussed at further length with the patient. The risks of the surgery including but not limited to bleeding, infection, local nerve damage, CVA, blood clots, heart attack, , were discussed with the patient by myself at Dr. Richter's request. Patient expresses understanding and agreement to proceed. This will clear in the next few weeks the patient's convenience. She is aware that she she will be started on aspirin and Plavix in addition to her Eliquis which she takes regularly for her atrial fibrillation. We will obtain clearance from her emt b prior to her procedure. Patient is agreeable to this plan. She will call with any other questions. Thank you for letting us participate in the care of this patient. I have personally spent_28__ minutes performing [id number] and [id number] activities on this date of service.Time does not include separately reported services. Activities Include: x__ review of the medical record _x_ obtaining a history _x_ physical exam/evaluation __ review labs _x_ review radiology reports _x_ counseling/educating patient/family/caregiver __ discussion/referral to other healthcare professional _x_ documenting care in the medical record __ independent interpretation of results _x_ communication of results to patient/family/caregiver x__ coordination of care Signature Line Electronic Signature on File CC: Lindy Garcia MD [address] [place] [address] [address] [facility] [id number] CC: Gage Robert MD [address] [place] [address] [address] [facility] [id number] * Electronically Reviewed/Signed by: Rosa Palacios PA-C Author Signature Dt/Tm:07/10/2024 04:30 PM [facility] [place] [place] [address] LM Result Type: HVI Outpt Note Date of Service: July 10, 2024 16:25 EST Authorization Status: Final Author or Import Date: CARA Palcaios Lynn on July 10, 2024 16:30 EST Verified By: CARA Palacios Lynn on July 10, 2024 16:30 EST Encounter info: [id number], [place] [id number], Clinic, 07/10/2024 - 07/10/2024 Admission Exam Per Admitting Provider Constitutional: In general patient is a healthy-appearing well-nourished well- developed elderly female in no distress. She is alert and oriented without any focal deficits. Her heart is irregular. Her lungs are decreased but clear. Radial pulses are +3. Distal pulses are palpable. Her abdominal exam is normal. Principal Diagnosis Left internal carotid artery stenosis Discharge Exam Constitutional WD/WN, vitals as above Neck trachea midline Respiratory normal respiratory effort; no respiratory distress Cardiovascular Rate/Rhythm: regular rate and regular rhythm Skin + ecchymosis (moderate ecchymosis, mild swelling) Neurologic CN's II-XI intact bilaterally, normal sensation to monofilament and moves all extremities Discharge Data Allergies Allergy/AdvReac Type Severity Reaction Status Date / Time hydrocodone Allergy Severe "Big" Verified 07/26/24 10:52 mental status changes tramadol Allergy Rash Verified 07/26/24 10:52 dasatinib [From Sprycel] AdvReac Severe Internal Verified 07/26/24 10:52 bleeding morphine AdvReac Intermediate "Big" Verified 07/26/24 10:52 mental status changes oxycodone AdvReac Intermediate Confusion Verified 07/26/24 10:52 rosuvastatin [From Crestor] AdvReac Intermediate Muscle Verified 07/26/24 10:52 cramping ciprofloxacin AdvReac Unknown N/V Verified 07/26/24 10:52 hydromorphone [From Dilaudid] AdvReac Unknown Nausea Verified 07/26/24 10:52 metronidazole AdvReac Unknown N/V Verified 07/26/24 10:52 Consultations 07/26/24 16:59 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 Doing well without complications. Will d\\c today. Total Time Total Time Spent Total Time Spent (In Minutes): x Discharge Plan Discharge Items Patient Disposition: Home - Self-Care Reason For Visit: Left Iliac Carotid Artery Stenosis Discharge Diagnosis: Left internal carotid artery stenosis Activity: Per Instructions section Non-emergency contact: Surgeon Call non-emergency contact if: your temperature is above 101.5, your wound has increased redness, your wound has increased drainage and your wound pain has increased Follow-up/Referrals: Isrrael Reyes DO [Primary Care Provider] - 08/02/24 9:00 am (Hospital follow up scheduled August 02 at 9:00) Diet: Heart Healthy Addtl Attending Provider Instructions: SPECIAL CARE INSTRUCTIONS: Diet: * You may return to previous diet. Medications: * Continue to take Aspirin, Birlinta, and statin as directed. Incision Care: * You may shower, but do not rub incision. You may let the warm soapy water run over it. Be sure to dry the incision well after bathing. * Do not shave directly over the incision until it is healed. * DO NOT IMMERSE THE INCISION IN A TUB/POOL/etc. UNTIL HEALED. Restrictions: * Do not drive for at least one week or if you are still taking any narcotic pain medication. * Do not lift anything heavier than a gallon of milk for one week after going home. Possible Complications: * Numbness - It is normal to have some numbness around the incision. Numbness can extend beyond the incision to areas of the neck, ear and face. The numbness is due to bruising of nerves during the surgery and will gradually improve over a period of months. * Hoarseness/Difficulty Speaking and Swallowing - The bruising of nerves in the neck can also cause a hoarse voice, difficulty speaking or swallowing. This may improve over time, HOWEVER, if it continues for more than a few days please contact our office ([phone]). * Excessive Swelling - There will be some swelling immediately after surgery which usually resolves within one week. If you notice that the swelling is getting worse, notify your surgeon ([phone]). * Drainage/Bleeding - If there is any drainage or bleeding, it should be a very small amount (less than a teaspoon per day). If you have excessive bleeding or drainage from the incision, call your surgeon ([phone]) right away. ACTIVATION OF EMERGENCY MEDICAL SYSTEM: Call 911, immediately, if you experience any of the following: Warning Signs and Symptoms of Stroke: * Sudden numbness or weakness of the face, arm or leg, especially on one side of the body * Sudden confusion, trouble speaking or understanding * Sudden trouble seeing in one or both eyes * Sudden trouble walking, dizziness, loss of balance or coordination * Sudden severe headache with no cause Do not delay calling 911 if you experience any warning signs or symptoms of a stroke. Delay in seeking medical attention may affect what treatments can be given to you. Risk Factors for Stroke: You can reduce your chances of stroke by working with your medical provider to adopt a healthy lifestyle. Some specific ways to lower your chance of stroke are: * If you are a smoker, now is the time to stop smoking cigarettes * If you are diabetic, improve the control of your blood sugars * Avoid excessive amounts of alcohol * Control high blood pressure * Lose weight if you are overweight * Be sure to lead an active lifestyle * Eat a healthy diet low in salt, cholesterol and fat You should know about other risk factors for stroke that you are unable to control. These include: * Age 55 years or older * Male gender * Certain racial groups: , or / * Family History of Stroke, Mini stroke or Heart Attack * Sickle Cell Disease You will be receiving a call from the Vascular Surgery Nurse after you are discharged. FOLLOW UP VISIT: It is important for you to keep your follow up appointments with your medical provider. Keep any scheduled doctor appointments. Call [phone] to schedule a follow up appointment if one not already scheduled. Pending Studies at Discharge: No Stand-Alone Forms: My [facility], Smoking Cessation Medications and DC Order Prescriptions: Continued cholecalciferol (vitamin D3) 50 mcg (2,000 unit) capsule 50 mcg PO QAM ezetimibe 10 mg tablet 10 mg PO PM Qty: 90 1RF furosemide 20 mg tablet 20 mg PO QAM Qty: 90 3RF metoprolol succinate 200 mg tablet extended release 24 hr 200 mg PO QAM Qty: 90 2RF albuterol sulfate [ProAir HFA] 90 mcg/actuation HFA aerosol inhaler 2 puff INH Q4H PRN (Reason: shortness of breath or wheezing) Qty: 18 1RF ondansetron HCl 4 mg tablet 4 mg PO Q8H PRN (Reason: nausea and vomiting) 5 Days Qty: 20 1RF acetaminophen-codeine 300-30 mg tablet 1 tab PO Q6H PRN (Reason: pain) Qty: 20 0RF clotrimazole-betamethasone 1-0.05 % cream 1 applic topical BID Qty: 15 3RF Rx Instructions: apply twice daily both ears x 1 week then daily x 1 week then every other day x 7 doses then PRN itching/flaking nilotinib HCl 150 mg capsule 150 mg PO HS Rx Instructions: must be taken on empty stomach; no food at least 2 hrs before or 1 hr after dose cyanocobalamin (vitamin B-12) 1,000 mcg tablet, sublingual 1,000 mcg SL QAM docusate sodium [Colace] 100 mg Capsule 100 mg PO UD PRN (Reason: Constipation) acetaminophen 500 mg Capsule 1,000 mg PO UD PRN (Reason: Pain) glimepiride 1 mg tablet 1 mg PO QAM Brilinta 90 mg Tablet 90 mg PO BID aspirin 81 mg Capsule 81 mg PO BID Discharge Orders: Discharge Order (Routine); Ordered 07/27/24 Ordered By: Pedro Pablo Richter Admission Data Admit Date/Time: 07/26/24 11:52 Attending Provider: Pedro Pablo Richter Admit Provider: Pedro Pablo Richter Primary Care Provider: Isrrael Reyes Other Providers: Samir Cormier; Avelino Galeano; Cooper Macias; Rios Bonilla; Candice Mathew; Cristian Shirley; Louise Zaragoza
[2024-07-27 13:16] VITALS: BP 137/53; PULSE 76
--- NOTE | 2024-07-28 23:02 | Electrocardiogram Report ---
Test Reason : Blood Pressure : */* mmHG Vent. Rate : 80 BPM Atrial Rate : * BPM P-R Int : * ms QRS Dur : 74 ms QT Int : 384 ms P-R-T Axes : * 47 -65 degrees QTcB Int : 442 ms Atrial fibrillation with frequent ventricular-paced complexes and with premature ventricular or aberr antly conducted complexes Low voltage QRS Cannot rule out Inferior infarct , age undetermined Cannot rule out Anterior infarct , age undetermined Nonspecific T wave abnormality Abnormal ECG When compared with ECG of 13-Jul-2024 11:00, Vent. rate has increased by 14 bpm Confirmed by Lizandro Caro ([id number]) on 07/28/2024 11:01:55 PM Referred By: Pedro Pablo Richter Confirmed By: Lizandro Caro
== END 2024-07-27 13:35 | disposition home or self-care (01) | DRG 35 ==
LOC: ASU 10:03 → 1E 11:52
PROC: EV.TCAR (2024-07-26 12:30)